=== PATIENT | male | born 1930 | race Caucasian/White ===

== ENCOUNTER 2017-01-01 07:30 | Inpatient (IN) ==
[2017-01-08] MEDS ORDERED: METOCLOPRAMIDE 10mg/2ml INJECTION IVP ONE (06:00)
[2017-01-08] MEDS ORDERED: NOZIN NASAL SWAB NAS ONE ×2 (06:00→15:11)
[2017-01-08] MEDS ORDERED: ACETAMINOPHEN 500 MG TABLET PO ONE (06:00)
[2017-01-08] MEDS ORDERED: LIDOCAINE 1% (10mg/ml) 2mL INJ PF SDV ID ONE (06:00)
[2017-01-08] MEDS ORDERED: ONDANSETRON 4 MG/2 ML INJECTION IVP ONE (06:00)
[2017-01-08] MEDS ORDERED: FAMOTIDINE PB 20 MG/50 ML BAG IV ONE (06:00)
[2017-01-08] MEDS ORDERED: CEFAZOLIN 1 G INJECTION IVP ONE (06:00)
[2017-01-08] MEDS ORDERED: DEXAMETHASONE 4 MG/ML INJECTION IVP ONE (06:00)
[2017-01-08] MEDS ORDERED: EPINEPHrine 0.25 MG, BUPIVACAINE 0.25% PF 30 ML, MORPHINE SULFATE 15 MG, KETOROLAC INJ ... OPSITE ONE (08:00)
--- OUTSIDE RECORDS SUMMARY | 2017-01-08 08:12 | External Medical Summary | Referral Summary ---
:1930 Author Care Team Providers Name Role Phone Adam Vegas Primary Care Physician Encounter [facility] [id number] Date(s): 08/23/14 - 08/23/14 [facility], Juan Manuel, Cardiology [address] [place], [place] [address] Discharge Diagnosis: Varicose veins Discharge Diagnosis: Knee osteoarthritis Discharge Diagnosis: Venous insufficiency Discharge Diagnosis: Hypertension, essential Discharge Disposition: Home or Self Care Attending Physician: Nando Dalal MD Admitting Physician: Nando Dalal MD Referring Physician: Adam Vegas MD Vital Signs Most recent to oldest [Reference Range]: 1 Peripheral Pulse Rate [60-100 bpm] 66 bpm (08/23/14 11:07 AM) Blood Pressure [90-140/60-90 mmHg] 138/82 mmHg (08/23/14 11:07 AM) Problem List Condition Effective Dates Status Health Status Informant Abnormal EKG(Confirmed) Active Hypertension, essential(Confirmed) Active Glaucoma(Confirmed) Active OA (osteoarthritis)(Confirmed) Active Venous insufficiency(Confirmed) Active Seizure disorder(Confirmed) Active Bilateral sensorineural hearing Active loss(Confirmed) Syncopal episodes(Confirmed) 10/2011 Active Chicken pox(Confirmed) Active Varicose veins(Confirmed) Active Allergies, Adverse Reactions, Alerts No Known Allergies Medications Aspirin Low Dose 81 mg, Oral, Daily, 0 Refill(s) Start Date: 10/14/13 Status: OrderedBetoptic S 0.25% ophthalmic suspension drops, Eye-Right, BID, 0 Refill(s) Start Date: 08/13/14 Status: OrderedFeosol 325 mg (65 mg elemental iron) oral tablet 1 tabs, Oral, TID, 0 Refill(s) Start Date: 06/29/14 Status: OrderedFish Oil 1000 mg oral capsule 1 caps, Oral, Daily, 0 Refill(s) Start Date: 06/29/14 Status: Orderedglucosamine 500 mg oral capsule 1 caps, Oral, Daily, 0 Refill(s) Start Date: 06/29/14 Status: Orderedlosartan 50 mg oral tablet 1 tabs, Oral, Daily, # 30 tabs, 6 Refill(s), Pharmacy: [facility] #[id number] , 1 tabs Oral Daily Start Date: 07/13/14 Status: Orderedsaw palmetto oral capsule 1 tabs, Oral, Daily, 0 Refill(s) Start Date: 06/29/14 Status: OrderedSystane ophthalmic solution drops, Eye-Left, BID, 0 Refill(s) Start Date: 08/13/14 Status: OrderedTimoptic Ocudose 0.25% ophthalmic solution 1 drops, Eye-Both, BID, 0 Refill(s) Start Date: 10/13/13 Status: OrderedTrusopt 2% ophthalmic solution 1 drops, Eye-Left, TID, 0 Refill(s) Start Date: 10/13/13 Status: OrderedVitamin D3 1000 intl units oral tablet 1 tabs, Oral, Daily, # 30 tabs, 0 Refill(s) Start Date: 06/29/14 Status: Ordered Results No data available for this section Immunizations Vaccine Date Refusal Reason pneumococcal 23-polyvalent vaccine 12/06/08 Procedures Procedure Date Related Diagnosis Body Site Biopsy - CSY random - neg repeat 10 yrs 2012 Sigmoidoscopy 02/19/02 Admission to hospital - [place] Hernia repair - R inguinal knee replacement Knee replacement - R Tonsillectomy Social History Social History Type Response Smoking Status Never smoker Assessment and Plan Extracted from: Title: Office Visit Note Author: Nando Dalal MD Date: 08/23/14 Assessment/Plan 1.Venous insufficiency 2.Varicose veins 3.Knee osteoarthritis Hypertension, essential With regard to his heart, he seems to be doing okay and we didn't make any changes in this regard. We continued to advised him to avoid nonsteroidal anti-inflammatory drugs. He still has lots of concerns regarding his legs. I advised him to continue to keep all options open. With regard to his heart, he is to see us again in 1 year but we can see him any time as necessary.
--- OUTSIDE RECORDS SUMMARY | 2017-01-08 08:12 | External Medical Summary | Referral Summary ---
:1930 Author Care Team Providers Name Role Phone Adam Vegas Primary Care Physician Encounter [facility] [id number] Date(s): 08/30/14 [facility] [address] [place] [address]- Discharge Diagnosis: Bilateral sensorineural hearing loss Discharge Disposition: Home or Self Care Attending Physician: Alison Jacobs Admitting Physician: Alison Jacobs Vital Signs No data available for this section Problem List Condition Effective Dates Status Health [...] Daily, # 30 tabs, 6 Refill(s), Pharmacy: [facility] #[id number] , 1 tabs Oral Daily Start Date: [...] Smoking Status Never smoker Assessment and Plan No data available for this section
--- OUTSIDE RECORDS SUMMARY | 2017-01-08 08:13 | External Medical Summary | Referral Summary ---
:1930 Author Organization [facility] Address [address] [place] [address] [place] [address] Care Team Providers Name Role Phone Adam Vegas Primary Care Physician Encounter [facility] Date(s): 08/26/15 - 08/26/15 [facility] [address] [place] [address] Discharge Diagnosis: Atrial flutter Discharge Diagnosis: Hypertension, essential Discharge Diagnosis: Orthostatic hypotension Discharge Diagnosis: Syncopal episodes Discharge Disposition: 01-Home or Self Care Attending Physician: Adam Vegas MD Admitting Physician: Adam Vegas MD Vital Signs Most recent to oldest [Reference Range]: 1 Temperature Tympanic [36.6-38.1 degC] 36.8 degC (08/26/15 9:44 AM) Peripheral Pulse Rate [60-100 bpm] 60 bpm (08/26/15 9:44 AM) Respiratory Rate [14-20 br/min] 16 br/min (08/26/15 9:44 AM) Blood Pressure [90-140/60-90 mmHg] 114/56 mmHg (08/26/15 9:44 AM) Problem List Condition Effective Dates Status Health Status Informant Abnormal EKG(Confirmed) Active Hypertension, essential(Confirmed) Active Glaucoma(Confirmed) Active OA (osteoarthritis)(Confirmed) Active Venous insufficiency(Confirmed) Active Seizure disorder(Confirmed) Active Bilateral sensorineural hearing Active loss(Confirmed) Syncopal episodes(Confirmed) 10/2011 Active Chicken pox(Confirmed) Active Varicose veins(Confirmed) Active Allergies, Adverse Reactions, Alerts No Known Allergies Medications acetaminophen 325 mg oral tablet 650 mg 2 tabs, Oral, q4hr, as needed for pain, 0 Refill(s) Start Date: 08/23/15 Status: Orderedamiodarone 200 mg oral tablet 200 mg 1 tabs, Oral, Daily, 0 Refill(s) Start Date: 08/23/15 Status: OrderedAspercreme 10% topical cream 1 veronica, Topical, QID, as needed for pain, # 120 g, 0 Refill(s) Start Date: 06/10/15 Status: Orderedaspirin 325 mg oral tablet 325 mg 1 tabs, Oral, Daily, # 90 tabs, 0 Refill(s) Start Date: 08/26/15 Status: OrderedBetoptic S 0.25% ophthalmic suspension drops, Eye-Right, BID, 0 Refill(s) Start Date: 08/13/14 Status: OrderedCalcium 600+D Oral, Daily, 0 Refill(s) Start Date: 08/26/15 Status: OrderedCo Q-10 200 mg, Oral, Daily, 0 Refill(s) Start Date: 08/23/15 Status: OrderedFish Oil 1000 mg oral capsule 1 caps, Oral, Daily, 0 Refill(s) Start Date: 06/29/14 Status: Orderedglucosamine 500 mg oral capsule 1 caps, Oral, Daily, 0 Refill(s) Start Date: 06/29/14 Status: Orderedmidodrine 2.5 mg oral tablet 2.5 mg 1 tabs, Oral, TID, 0 Refill(s) Start Date: 08/23/15 Status: OrderedMilk of Magnesia 8% oral suspension 2.4 g 30 mL, Oral, Bedtime (once a day), 0 Refill(s) Start Date: 08/23/15 Status: Orderedmultivitamin Daily, 0 Refill(s) Start Date: 08/23/15 Status: OrderedNorco 5 mg-325 mg oral tablet 1-2 tabs, Oral, q4hr, as needed for pain, [facility] [phone] not to exceed 8 tablets/day, # 120 tabs, 0 Refill(s) Start Date: 08/22/15 Stop Date: 08/21/16 Status: Orderedsaw palmetto oral capsule 1 tabs, Oral, Daily, 0 Refill(s) Start Date: 06/29/14 Status: OrderedSenna Plus 50 mg-8.6 mg oral tablet 1 tabs, Oral, BID, 0 Refill(s) Start Date: 08/23/15 Status: OrderedSystane ophthalmic solution drops, Eye-Left, BID, 0 Refill(s) Start Date: 08/13/14 Status: OrderedTrusopt 2% ophthalmic solution 1 drops, Eye-Left, BID, 0 Refill(s) Start Date: 10/13/13 Status: OrderedVitamin [...] Extracted from: Title: Office Visit Note Author: Adam Vegas MD Date: 08/26/15 Assessment/Plan Atrial flutter He appears to be in normal sinus rhythm today. We will continue him on amiodarone. I did change the dosage schedule since you're getting him up at 130 in the morning to give him a dose. Hopefully this willmake a little easier for him. Ordered: Office Visit Level 4 Est 59942 Hypertension, essential Blood pressureoverall is stable. He's been having some orthostatic hypotension and is on Midrin for that. We'll continue to monitor blood pressures carefully. Ordered: Office Visit Level 4 Est 51170 Orthostatic hypotension Continue midodrine.I encouraged fluid intake although he did have some hyponatremia felt to be secondary to overuse of water while in the hospital. Continue to monitor blood pressures. Ordered: Office Visit Level 4 Est 79282 Syncopal episodes He's had no further episodes since being at [facility] continue to monitor. Ordered: Office Visit Level 4 Est 59396
--- OUTSIDE RECORDS SUMMARY | 2017-01-08 08:13 | External Medical Summary | Referral Summary ---
:1930 Author Organization [facility], Zeus Perkins, Audiology Address [address] [place] [address] Care Team Providers Name Role Phone Adam Vegas Primary Care Physician Encounter [facility] [id number] Date(s): 03/07/15 - 03/07/15 [address] [facility] [address], Audiology [address] [place] [address]- Discharge Diagnosis: Sensorineural hearing loss, bilateral Discharge Disposition: 01-Home or Self Care Attending Physician: Alison Jacobs [...] 06/29/14 Status: Orderedlosartan 50 mg oral tablet See Instructions, TAKE ONE TABLET BY MOUTH DAILY, # 30 tabs, 1 Refill(s), eRx: [facility] #[id number], TAKE ONE TABLET BY MOUTH DAILY Start Date: 02/02/15 Status: Orderedpain cream pain cream, See Instructions, Ketoprofen 10%, Ibuprofen 10%, Cyclobenzaprine 2 % ,Piroxicam 2 %, Lidocaine 5% / Apply 1-2 grams to affected area 3-4 times per day, 5 Refill(s) Start Date: 09/01/14 Status: Orderedsaw palmetto oral capsule 1 tabs, [...]
--- OUTSIDE RECORDS SUMMARY | 2017-01-08 08:13 | External Medical Summary | Referral Summary ---
:1930 Author Organization [facility] [address] [place] [address] Care Team Providers Name Role Phone Adam Vegas Primary Care Physician Encounter [facility] Date(s): 06/10/15 - 06/10/15 [facility] [address] [place] [address]- Discharge Diagnosis: OA (osteoarthritis) Discharge Diagnosis: TIA (transient ischemic attack) Discharge Diagnosis: Left wrist pain Discharge Disposition: 01-Home or Self Care Attending Physician: Virginie Singleton APRN Admitting Physician: Virginie Singleton APRN Vital Signs Most recent to oldest [Reference Range]: 1 Temperature Tympanic [36.6-38.1 degC] 37.0 degC (06/10/15 10:33 AM) Peripheral Pulse Rate [60-100 bpm] 68 bpm (06/10/15 10:33 AM) Respiratory Rate [14-20 br/min] 20 br/min (06/10/15 10:33 AM) Blood Pressure [90-140/60-90 mmHg] 112/52 mmHg (06/10/15 10:33 AM) Problem List Condition Effective Dates Status Health Status Informant Abnormal EKG(Confirmed) Active Hypertension, essential(Confirmed) Active Glaucoma(Confirmed) Active OA (osteoarthritis)(Confirmed) Active Venous insufficiency(Confirmed) Active Seizure disorder(Confirmed) Active Bilateral sensorineural hearing Active loss(Confirmed) Syncopal episodes(Confirmed) 10/2011 Active Chicken pox(Confirmed) Active Varicose veins(Confirmed) Active Allergies, Adverse Reactions, Alerts No Known Allergies Medications Aspercreme 10% topical cream 1 veronica, Topical, QID, as needed for pain, # 120 g, 0 Refill(s) Start Date: 06/10/15 Status: OrderedAspirin Low Dose 4 tabs, Oral, Daily, 0 Refill(s) Start Date: 10/14/13 [...] TABLET BY MOUTH DAILY, # 30 tabs, 2 Refill(s), eRx: [facility] #[id number], TAKE ONE TABLET BY MOUTH DAILY Start Date: 03/29/15 Status: Orderedsaw palmetto oral capsule 1 tabs, Oral, Daily, 0 Refill(s) Start Date: 06/29/14 Status: OrderedSystane ophthalmic solution drops, Eye-Left, BID, 0 Refill(s) Start Date: 08/13/14 Status: OrderedTimoptic Ocudose 0.25% ophthalmic solution 1 drops, Eye-Both, BID, 0 Refill(s) Start Date: 10/13/13 Status: Orderedtriamcinolone 0.5% topical cream 1 veronica, Topical, BID, # 15 g, 0 Refill(s), Pharmacy: [facility] #[id number] Start Date: 04/29/15 Status: OrderedTrusopt 2% ophthalmic solution 1 drops, Eye-Left, TID, 0 Refill(s) Start Date: 10/13/13 Status: OrderedVitamin D3 1000 intl units oral tablet 1 tabs, Oral, Daily, # 30 tabs, 0 Refill(s) Start Date: 06/29/14 Status: Ordered Results Hematology Most recent to oldest [Reference Range]: 1 WBC [5.0-10.0 10*3/uL] 5.6 10*3/uL (06/10/15 11:27 AM) RBC [3.70-5.20] 3.79 (06/10/15 11:27 AM) Hgb [12.0-16.0 gm/dL] 13.0 gm/dL (06/10/15 11:27 AM) Hct [40.0-54.0 %] 38.7 % *LOW* (06/10/15 11:27 AM) MCV [80.0-96.0 fL] 102.1 fL *HI* (06/10/15 11:27 AM) MCH [26.0-34.0 pg] 34.3 pg *HI* (06/10/15 11:27 AM) MCHC [32.0-36.0 gm/dL] 33.6 gm/dL (06/10/15 11:27 AM) RDW [0.0-14.5 %] 12.8 % (06/10/15 11:27 AM) Platelet [150-400 10*3/uL] 199 10*3/uL (06/10/15 11:27 AM) MPV [8.8-14.8 fL] 11.2 fL (06/10/15 11:27 AM) Neutrophils [50-70 %] 68 % (06/10/15 11:27 AM) Lymphocytes [20-40 %] 16 % *LOW* (06/10/15 11:27 AM) Monocytes [4-8 %] 12 % *HI* (06/10/15 11:27 AM) Eosinophils [0-6 %] 3 % (06/10/15 11:27 AM) Basophils [0-2 %] 0 % (06/10/15 11:27 AM) Neutro Absolute [2.50-7.00 10*3] 3.79 10*3 (06/10/15 11:27 AM) Lymph Absolute [1.00-4.00 10*3] 0.91 10*3 *LOW* (06/10/15 11:27 AM) [place] Absolute [0.20-0.80 10*3] 0.68 10*3 (06/10/15 11:27 AM) Eos Absolute [0.00-0.60 10*3] 0.18 10*3 (06/10/15 11:27 AM) Baso Absolute [0.00-0.30] 0.01 (06/10/15 11:27 AM) Chemistry Most recent to oldest [Reference Range]: 1 Uric Acid [3.5-7.2 mg/dL] 4.7 mg/dL (06/10/15 11:27 AM) Immunizations Vaccine Date Refusal Reason pneumococcal 23-polyvalent vaccine 12/06/08 Procedures Procedure Date Related Diagnosis Body Site Biopsy - CSY random - neg repeat 10 yrs 2012 Sigmoidoscopy 02/19/02 Admission to hospital - [place] Hernia repair - R inguinal knee replacement Knee replacement - R Tonsillectomy Social History Social History Type Response Smoking Status Never smoker Assessment and Plan Extracted from: Title: Office Visit Note-TIA/wrist Author: Virginie Singleton [employer]NAL [employer] 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 Recommend he continue4 baby aspirins as he is taking. Discussed risks of recurrent TIA/strokes. Carotid Doppler to be scheduled. If he notes any increased weakness or other neurological symptoms he is to call the office or go to the ER. Ordered: US Carotid Duplex Bilateral 2.Left wrist pain Discussed multiple etiologies with the patient. X- ray today to rule out injury from recent fall. Less light likely to inclined to think this is cellulitis. Suspect gout. Lab today as ordered. Patient denies any need for pain medication for this. Ordered: CBC w/ Differential Uric Acid XR Wrist Complete Left OA (osteoarthritis)
--- OUTSIDE RECORDS SUMMARY | 2017-01-08 08:13 | External Medical Summary | Referral Summary ---
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 Discharge Disposition: 01-Home or Self Care Attending Physician: Adam Vegas MD Admitting Physician: Adam Vegas MD Vital Signs Most recent to oldest [Reference Range]: 1 Temperature Axillary [35.2-36.7 degC] 36.6 degC (12/19/14 10:13 AM) Peripheral Pulse Rate [60-100 bpm] 64 bpm (12/19/14 10:13 AM) Respiratory Rate [14-20 br/min] 16 br/min (12/19/14 10:13 AM) Blood Pressure [90-140/60-90 mmHg] 104/60 mmHg (12/19/14 10:13 AM) Problem List Condition Effective Dates Status [...] DAILY, # 30 tabs, 2 Refill(s), eRx: [facility] #[id number], TAKE ONE TABLET BY MOUTH DAILY Start [...] BID, # 15 g, 0 Refill(s), Pharmacy: [facility] #[id number] Start Date: 04/29/15 Status: OrderedTrusopt 2% ophthalmic solution 1 drops, Eye-Left, TID, 0 Refill(s) Start Date: 10/13/13 Status: OrderedVitamin D3 1000 intl units oral tablet 1 tabs, Oral, Daily, # 30 tabs, 0 Refill(s) Start Date: 06/29/14 Status: Ordered Results Chemistry Most recent to oldest [Reference Range]: 1 Sodium Lvl [135-144 mEq/L] 136 mEq/L (12/22/14 11:20 AM) Potassium Lvl [3.5-5.2 mEq/L] 4.9 mEq/L (12/22/14 AM) Chloride [99-111 mEq/L] 103 mEq/L (12/22/14 AM) CO2 [23-31 mEq/L] 26 mEq/L (12/22/14 AM) AGAP [3-20] 7 (12/22/14 AM) BUN [8-26 mg/dL] 19 mg/dL (12/22/14 AM) Glucose Lvl [70-99 mg/dL] 75 mg/dL (12/22/14 AM) Creatinine Lvl [0.72-1.25 mg/dL] 1.02 mg/dL (12/22/14 AM) eGFR [>60 mL/min] >60 mL/min 1 (12/22/14 AM) Calcium Lvl [8.9-10.5 mg/dL] 9.3 mg/dL (12/22/14 AM) Albumin Lvl [3.4-4.8 gm/dL] 3.9 gm/dL (12/22/14 AM) Total Protein [6.2-8.1 gm/dL] 6.4 gm/dL (12/22/14 AM) Globulin [1.8-4.0 gm/dL] 2.5 gm/dL (12/22/14 AM) ALT [0-55 U/L] 12 U/L (12/22/14 AM) AST [5-34 U/L] 25 U/L (12/22/14 AM) Alk Phos [40-150 U/L] 68 U/L (12/22/14: AM) Bili Total [0.2-1.2 mg/dL] 0.4 mg/dL (12/22/14 AM) TSH with Reflex Free T4 [0.35-4.94] 1.79 (12/22/14: AM) 1Result Comment: Multiply eGFR results by 1.21 for race. Immunizations Vaccine Date Refusal Reason pneumococcal 23-polyvalent [...] Visit Note Author: Adam Vegas MD Date: 12/22/14 Assessment/Plan BPH loc w/o ur obs/LUTS We talked about whether he would be appropriate to check PSAs with him now. It is age I've recommended that he not do that I explained the rationale for that. I offered t o go ahead and check if he decided he wanted to do that select. She has further questions or concerns he'll let know. Ordered: Office Visit Level 4 Est 48953 Cellulitis of elbow This appears to feel well and no signs of cellulitis currently. Follow-up if symptoms worsen. Ordered: Office Visit Level 4 Est 96118 Fatigue With his persistent fatigue I've recommended some laboratory studies will see what that shows Ordered: Comprehensive Metabolic Panel Office Visit Level 4 Est 02421 TSH with Reflex Free T4 OA (osteoarthritis) Chronic stable no change in current treatment is recommended. Ordered: Office Visit Level 4 Est 35927
--- OUTSIDE RECORDS SUMMARY | 2017-01-08 08:13 | External Medical Summary | Referral Summary ---
:1930 Author Organization [facility] [address] [place] [address] Care Team Providers Name Role Phone Adam Vegas Primary Care Physician Encounter [facility] Date(s): 04/09/16 - 04/09/16 [facility] [address] [place] [address]- Discharge Diagnosis: Paroxysmal atrial fibrillation Discharge Diagnosis: Syncopal episodes Discharge Diagnosis: Benign essential hypertension Discharge Disposition: 01-Home or Self Care Attending Physician: Adam Vegas MD Admitting Physician: Adam Vegas MD Vital Signs Most recent to oldest [Reference Range]: 1 Temperature Tympanic [36.6-38.1 degC] 36.6 degC (04/09/16 10:04 AM) Peripheral Pulse Rate [60-100 bpm] 60 bpm (04/09/16 10:04 AM) Respiratory Rate [14-20 br/min] 16 br/min (04/09/16 10:04 AM) Blood Pressure [90-140/60-90 mmHg] 140/78 mmHg (04/09/16 10:04 AM) Problem List Condition Effective Dates Status Health Status Informant Paroxysmal atrial Active fibrillation(Confirmed) Benign essential Active hypertension(Confirmed) Abnormal EKG(Confirmed) Active Hypertension, essential(Confirmed) Active Glaucoma(Confirmed) Active OA (osteoarthritis)(Confirmed) Active Venous insufficiency(Confirmed) Active Seizure disorder(Confirmed) Active Bilateral sensorineural hearing Active loss(Confirmed) Syncopal episodes(Confirmed) 10/2011 Active Chicken pox(Confirmed) Active Varicose veins(Confirmed) Active Allergies, Adverse Reactions, Alerts No Known Allergies Medications acetaminophen 325 mg oral tablet 650 mg 2 tabs, Oral, q4hr, as needed for pain, 0 Refill(s) Start Date: 08/23/15 Status: Orderedaspirin 325 mg oral tablet 325 [...] Daily, 0 Refill(s) Start Date: 06/29/14 Status: Orderedflecainide Oral, q12hr, 0 Refill(s) Start Date: 01/03/16 Status: OrderedFruit Fiber Fruit Fiber, Oral, Daily, 0 Refill(s) Start Date: 09/29/15 Status: Orderedglucosamine 500 mg oral capsule 1 caps, Oral, Daily, 0 Refill(s) Start Date: 06/29/14 Status: Orderedlosartan 25 mg oral tablet 25 mg 1 tabs, Oral, Daily, # 30 tabs, 0 Refill(s), other reason (Rx) Start Date: 04/09/16 Status: Orderedmultivitamin Daily, 0 Refill(s) Start Date: 08/23/15 Status: Orderedsaw palmetto oral capsule 1 tabs, [...] recent to oldest [Reference Range]: 1 WBC [4.8-10.8 10*3/uL] 5.8 10*3/uL (04/09/16 10:38 AM) RBC [4.60-6.20] 3.89 *LOW* (04/09/16 10:38 AM) Hgb [14.0-18.0 gm/dL] 13.5 gm/dL *LOW* (04/09/16 10:38 AM) Hct [42.0-52.0 %] 39.3 % *LOW* (04/09/16 10:38 AM) MCV [82.0-99.0 fL] 101.0 fL *HI* (04/09/16 10:38 AM) MCH [27.0-32.0 pg] 34.7 pg *HI* (04/09/16 10:38 AM) MCHC [32.0-36.0 gm/dL] 34.4 gm/dL (04/09/16 10:38 AM) RDW [11.5-14.5 %] 13.2 % (04/09/16 10:38 AM) Platelet [150-400 10*3/uL] 233 10*3/uL (04/09/16 10:38 AM) MPV [8.8-14.8 fL] 10.1 fL (04/09/16 10:38 AM) Immature Granulocytes [0.0-1.0 %] 0.3 % (04/09/16 10:38 AM) Neutrophils [51-75 %] 67 % (04/09/16 10:38 AM) Lymphocytes [20-46 %] 16 % *LOW* (04/09/16 10:38 AM) Monocytes [4-11 %] 14 % *HI* (04/09/16 10:38 AM) Eosinophils [0-4 %] 3 % (04/09/16 10:38 AM) Basophils [0-2 %] 0 % (04/09/16 10:38 AM) Neutro Absolute [1.90-7.00 10*3] 3.88 10*3 (04/09/16 10:38 AM) Lymph Absolute [0.80-3.30 10*3] 0.90 10*3 (04/09/16 10:38 AM) [place] Absolute [0.30-1.00 10*3] 0.83 10*3 (04/09/16 10:38 AM) Eos Absolute [0.00-0.50 10*3] 0.16 10*3 (04/09/16 10:38 AM) Baso Absolute [0.00-0.20 10*3] 0.01 10*3 (04/09/16 10:38 AM) Chemistry Most recent to oldest [Reference Range]: 1 Sodium Lvl [135-144 mEq/L] 138 mEq/L (04/09/16 10:38 AM) Potassium Lvl [3.5-5.2 mEq/L] 5.0 mEq/L (04/09/16 10:38 AM) Chloride [99-111 mEq/L] 102 mEq/L (04/09/16 10:38 AM) CO2 [23-31 mEq/L] 28 mEq/L (04/09/16 10:38 AM) AGAP [3-20] 8 (04/09/16 10:38 AM) BUN [8-26 mg/dL] 20 mg/dL (04/09/16 10:38 AM) Glucose Lvl [70-99 mg/dL] 61 mg/dL *LOW* (04/09/16 10:38 AM) Creatinine Lvl [0.72-1.25 mg/dL] 0.81 mg/dL (04/09/16 10:38 AM) eGFR [>60 mL/min] >60 mL/min 1 (04/09/16 10:38 AM) Calcium Lvl [8.9-10.5 mg/dL] 9.5 mg/dL (04/09/16 10:38 AM) Albumin Lvl [3.4-4.8 gm/dL] 4.1 gm/dL (04/09/16 10:38 AM) Total Protein [6.0-7.6 gm/dL] 6.4 gm/dL (04/09/16 10:38 AM) Globulin [1.8-4.0 gm/dL] 2.3 gm/dL (04/09/16 10:38 AM) ALT [0-55 U/L] 15 U/L (04/09/16 10:38 AM) AST [5-34 U/L] 25 U/L (04/09/16 10:38 AM) Alk Phos [40-150 U/L] 83 U/L (04/09/16 10:38 AM) Bili Total [0.2-1.2 mg/dL] 0.6 mg/dL (04/09/16 10:38 AM) 1Result Comment: Multiply eGFR results by 1.21 for race. Immunizations Vaccine Date Refusal Reason pneumococcal 23-polyvalent vaccine 12/06/08 Procedures Procedure Date Related Diagnosis Body Site Colonoscopy 05/26/12 Biopsy - CSY random - neg repeat 10 2012 Sigmoidoscopy 02/19/02 Admission to hospital - polio Hernia repair - R inguinal knee replacement Knee replacement - R Tonsillectomy Social History Social History Type Response Smoking Status Never smoker Assessment and Plan Extracted from: Title: Office Visit Note Author: Adam Vegas MD Date: 04/09/16 Assessment/Plan 1.Syncopal episodes He's having some ongoing recurring near syncopal spells. I've asked tohave him seen by Dr. De La O in the next few weeks if possible. We will do some lab work today. Enc ouraged him to continue his current medications. I've asked his to keep track of his blood pressure during these episodesandthe frequency of these episodes if they recur. Ordered: CBC w/ Differential Comprehensive Metabolic Panel Office Visit Level 4 Est 68610 2.Paroxysmal atrial fibrillation He appears to be in normal sinus rhythm today. Laboratory studies ordered Ordered: CBC w/ Differential Comprehensive Metabolic Panel Office Visit Level 4 Est 10214 3.Benign essential hypertension Blood pressure appears to be adequately controlledno change in current treatment at this time. Ordered: CBC w/ Differential Comprehensive Metabolic Panel Office Visit Level 4 Est 94312
--- OUTSIDE RECORDS SUMMARY | 2017-01-08 08:13 | External Medical Summary | Referral Summary ---
:1930 Author Care Team Providers Name Role Phone Adam Vegas Primary Care Physician Encounter [facility] [id number] Date(s): 09/01/14 - 09/01/14 [facility] , Podiatry [address], [place] [address] Discharge Diagnosis: Arthritis of foot Discharge Disposition: Home or Self Care Attending Physician: Maverick Langley DPM Admitting Physician: Maverick Langley DPM Vital Signs No data available for this [...] Daily, # 30 tabs, 6 Refill(s), Pharmacy: [facility] #[id number] , 1 tabs Oral Daily Start Date: 07/13/14 Status: Orderedpain cream pain cream, See Instructions, Ketoprofen 10%, Ibuprofen 10%, Cyclobenzaprine 2 % ,Piroxicam 2 %, Lidocaine 5% / Apply 1-2 grams to affected area 3-4 times per day, 5 Refill(s) Special Instructions: Ketoprofen 10%, Ibuprofen 10%, Cyclobenzaprine 2 %, Piroxicam 2 %, Lidocaine 5%/ Apply 1-2 grams to affected area 3-4 times per day Start Date: 09/01/14 Status: Orderedsaw palmetto oral [...] Extracted from: Title: Office Visit Note Author: Maverick Langley DPRuth Date: 09/01/14 Assessment/Plan Arthritis of foot X-ray of 3 view left foot showed moderate to severe arthritic changes involving tarsal metatarsal and midfoot joint. X-ray images were reviewed with the patient. Patient states that his health services manager advised him not to take any NSAIDs. Prescribe custom Rx medication today. Follow-up in 1 month if condition does not improve.
--- OUTSIDE RECORDS SUMMARY | 2017-01-08 08:13 | External Medical Summary | Referral Summary ---
:1930 Author Organization [facility] [address] [place] [address] Care Team Providers Name Role Phone Adam Vegas Primary Care Physician Encounter [facility] Date(s): 09/29/15 - 09/29/15 [facility] [address] [place] [address]- Discharge Diagnosis: Syncopal episodes Discharge Diagnosis: OA (osteoarthritis) Discharge Diagnosis: Atrial flutter Discharge Diagnosis: Venous insufficiency Discharge Disposition: 01-Home or Self Care Attending Physician: Adam Vegas MD Admitting Physician: Adam Vegas MD Vital Signs Most recent to oldest [Reference Range]: 1 Temperature Tympanic [36.6-38.1 degC] 36.2 degC *LOW* (09/29/15 2:35 PM) Peripheral Pulse Rate [60-100 bpm] 56 bpm *LOW* (09/29/15 2:35 PM) Respiratory Rate [14-20 br/min] 14 br/min (09/29/15 2:35 PM) Blood Pressure [90-140/60-90 mmHg] 92/52 mmHg (09/29/15 2:35 PM) Problem List Condition Effective Dates Status Health [...] Daily, 0 Refill(s) Start Date: 06/29/14 Status: OrderedFruit Fiber Fruit Fiber, Oral, Daily, 0 Refill(s) Start Date: 09/29/15 Status: Orderedglucosamine 500 mg oral capsule 1 caps, Oral, Daily, 0 Refill(s) Start Date: 06/29/14 Status: OrderedMilk of Magnesia 8% oral suspension 2.4 g 30 mL, Oral, Bedtime (once a day), 0 Refill(s) Start Date: 08/23/15 Status: OrderedMultaq 400 mg oral tablet 400 mg 1 tabs, Oral, BID, with morning and evening meals, # 180 tabs, 0 Refill(s ) Start Date: 09/29/15 Status: Orderedmultivitamin Daily, 0 Refill(s) Start Date: 08/23/15 Status: OrderedNorco 5 mg-325 mg oral tablet 1-2 tabs, Oral, q4hr, as needed for pain, [facility] [phone] not to exceed 8 tablets/day, # 120 [...] Visit Note Author: Adam Vegas MD Date: 09/29/15 Assessment/Plan 1.OA (osteoarthritis) Chronic relatively stable. He has noticed some increased pain in his left kneebecause of extra work it's having to do. No change in current treatment recommended. 2.Syncopal episodes No further syncopal or near syncopal episodes of been noted since being at the assisted. 3.Atrial flutter Recently switched from amiodarone to multi. He is tolerating that better. Concerns about costwill be ongoing. I encouraged both he and his to discuss this further with Dr. De La O at the next appointment next month. 4.Venous insufficiency He's noticed some increased edema recently. He does have compression stockings of been helpful for him in the past. I did write an order that he can use thoseat his discretion. I would like to see him back in one month follow-up.
--- OUTSIDE RECORDS SUMMARY | 2017-01-08 08:13 | External Medical Summary | Referral Summary ---
:1930 Author Organization [facility], [facility], Audiology Address [address] [place] [address] Care Team Providers Name Role Phone Adam Vegas Primary Care Physician Encounter [facility] Date(s): 03/07/15 - 03/07/15 [facility] [address] Audiology [address] [place] [address]- Discharge Diagnosis: Sensorineural hearing loss, bilateral Discharge [...] tabs, Oral, q4hr, as needed for pain, [facility] [phone] not to exceed 8 tablets/day, # 120 [...] # 30 tabs, 0 Refill(s) Start Date: 2/17/15 Status: Ordered Results No data available for [...]
--- OUTSIDE RECORDS SUMMARY | 2017-01-08 08:13 | External Medical Summary | Referral Summary ---
:1930 Author Organization [facility] [address] [place] [address] Care Team Providers Name Role Phone Adam Vegas Primary Care Physician Encounter [facility] Date(s): 04/29/15 - 04/29/15 [facility] [address] [place] [address] Discharge Diagnosis: Osteoarthritis of left knee Discharge Diagnosis: Seborrheic dermatitis Discharge Disposition: 01-Home or Self Care Attending Physician: Adam Vegas MD Admitting Physician: Adam Vegas MD Vital Signs Most recent to oldest [Reference Range]: 1 Temperature Tympanic [36.6-38.1 degC] 36.7 degC (04/29/15 10:31 AM) Peripheral Pulse Rate [60-100 bpm] 68 bpm (04/29/15 10:31 AM) Respiratory Rate [14-20 br/min] 18 br/min (04/29/15 10:31 AM) Blood Pressure [90-140/60-90 mmHg] 120/70 mmHg (04/29/15 10:31 AM) Problem List Condition Effective Dates Status [...] DAILY, # 30 tabs, 2 Refill(s), eRx: [facility] #[id number], TAKE ONE TABLET BY MOUTH DAILY Start Date: 03/29/15 Status: Orderedpain cream pain cream, See Instructions, [...] BID, # 15 g, 0 Refill(s), Pharmacy: [facility] #[id number] Start Date: 04/29/15 Status: OrderedTrusopt 2% ophthalmic [...] - neg repeat 10 yrs 2012 Sigmoidoscopy 10/10/02 Admission to hospital - polio Hernia repair - R inguinal knee replacement Knee replacement - R Tonsillectomy Social History Social History Type Response Smoking Status Never smoker Assessment and Plan Extracted from: Title: Office Visit Note Author: Adam Vegas MD Date: 04/29/15 Assessment/Plan Osteoarthritis of knee, unspecified, Osteoarthritis of left knee We talked about knee replacement surgery. He's done this once he knows when he is up against. I told him that my general recommendation is that when he is having enough pain or difficulties with the knee that is keeping him from doing the things he normally enjoys that's the time to consider knee replacement. He'll get some further thought this and if he has further questions or be glad to see him back. Ordered: Office Visit Level 3 Est 82566 Seborrheic dermatitis, Seborrheic dermatitis, unspecified I recommended some triamcinolone cream applied twice a day until clear. If it doesn't improve or further problems develop follow-up. Ordered: Office Visit Level 3 Est 62740 Orders: triamcinolone topical, 1 veronica, Topical, BID, # 15 g, 0 Refill(s), Pharmacy: [facility] #[id number]
--- OUTSIDE RECORDS SUMMARY | 2017-01-08 08:13 | External Medical Summary | Referral Summary ---
:1930 Author Organization [facility] [address] [place] [address] Care Team Providers Name Role Phone Adam Vegas Primary Care Physician Encounter [facility] Date(s): 01/03/16 - 01/03/16 [facility] [address] [place] [address] [place] Discharge Diagnosis: Hypertension, essential Discharge Diagnosis: OA (osteoarthritis) Discharge Diagnosis: Syncopal episodes Discharge Disposition: 01-Home or Self Care Attending Physician: Adam Vegas MD Admitting Physician: Adam Vegas MD Vital Signs Most recent to oldest [Reference Range]: 1 Temperature Tympanic [36.6-38.1 degC] 36.7 degC (01/03/16 11:00 AM) Peripheral Pulse Rate [60-100 bpm] 60 bpm (01/03/16 11:00 AM) Respiratory Rate [14-20 br/min] 14 br/min (01/03/16 11:00 AM) Blood Pressure [90-140/60-90 mmHg] 174/80 mmHg *HI* (01/03/16 11:00 AM) Problem List Condition Effective Dates Status [...] tabs, Oral, q4hr, as needed for pain, [facility] [phone] not to exceed 8 tablets/day, # 120 [...] tabs, 0 Refill(s) Start Date: 06/29/14 Status: OrderedZofran 4 mg oral tablet 4 mg 1 tabs, Oral, q6hr, Nausea or Vomiting | as needed for nausea/vomiting, # 10 tabs, 0 Refill(s) Start Date: 10/31/15 Status: Ordered Results No data available for [...] Visit Note Author: Adam Vegas MD Date: 01/03/16 Assessment/Plan 1.Hypertension, essential, Essential (primary) hypertension Blood pressure is high here today as well. I suggested restarting losartan 50 mg a day. They actually have an appointment to see Dr. De La O tomorrowand I suggested waiting getting his opinion about this as well. Recheck in 3 months and continue to monitor pressures at home as well. Ordered: Office Visit Level 3 Est 20882 2.OA (osteoarthritis), Unspecified osteoarthritis, unspecified site Chronic stable no change in current Ordered: Office Visit Level 3 Est 87553 3.Syncopal episodes, Syncope and collapse He's had no further syncopal episodes since being on the flecainide. Continue without change. Ordered: Office Visit Level 3 Est 97694"
--- OUTSIDE RECORDS SUMMARY | 2017-01-08 08:13 | External Medical Summary | Referral Summary ---
:1930 Author Organization [facility] [address] Audiology Address [address] [place] [address] Care Team Providers Name Role Phone Adam Vegas Primary Care Physician Encounter [facility] [id number] Date(s): 09/10/14 - 09/10/14 [facility] [address] Audiology [address] [place] [address]- Discharge Diagnosis: Bilateral sensorineural hearing loss Discharge Disposition: 01-Home or Self Care Attending [...] DAILY, # 30 tabs, 1 Refill(s), eRx: [facility] #[id number], TAKE ONE TABLET BY MOUTH DAILY Start [...]
--- OUTSIDE RECORDS SUMMARY | 2017-01-08 08:13 | External Medical Summary | Referral Summary ---
:1930 Author Organization [facility] [address] Audiology Address [address] [place] [address] Care Team Providers Name Role Phone Adam Vegas Primary Care Physician Encounter [facility] Date(s): 06/05/16 - 06/05/16 [facility] [address] Audiology [address] [place] [address]- Discharge Diagnosis: Bilateral sensorineural hearing loss Discharge Disposition: 01-Home or Self Care Attending Physician: Alison Jacobs Admitting Physician: Alison Jacobs Referring Physician: Foster Devine MD Vital Signs No data available for this [...] No data available for this section Immunizations Given and Recorded Vaccine Date Status Refusal Reason pneumococcal 23-polyvalent vaccine 12/06/08 Recorded Procedures Procedure Date Related Diagnosis Body Site Colonoscopy 05/26/12 Biopsy - CSY random - neg repeat 10 2012 Sigmoidoscopy 02/19/02 Admission to hospital - polio Hernia repair - R inguinal knee replacement Knee replacement - R Tonsillectomy Social History Social History Type Response Smoking Status Never smoker Assessment and Plan No data available for this section
--- OUTSIDE RECORDS SUMMARY | 2017-01-08 08:13 | External Medical Summary | Referral Summary ---
:1930 Author Organization [facility] [address] Audiology Address [address] [place] [address] Care Team Providers Name Role Phone Adam Vegas Primary Care Physician Encounter [facility] [id number] Date(s): 12/05/15 - 12/05/15 [facility] [address] Audiology [address] [place] [address] Discharge Disposition: 01-Home or Self Care Attending [...] tabs, Oral, q4hr, as needed for pain, [facility] [phone] not to exceed 8 tablets/day, # 120 [...] and Plan No data available for this section"
[2017-01-08 08:23] VITALS: BMI 25.2
[2017-01-08] MEDS: LR 1,000 ML IV SCH ×3 (09:01→13:00)
[2017-01-08] MEDS ORDERED: SALINE FLUSH 10ml SYRINGE IVF PRN (10:31)
[2017-01-08] MEDS ORDERED: TRANEXAMIC ACID 1gm/NS 100ml IRR MIX IR ONE (10:31)
[2017-01-08] MEDS ORDERED: VANCOMYCIN 1,000 MG INJECTION ONE (10:33)
--- NOTE | 2017-01-08 10:56 | Anesthesia Preoperative Report ---
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, RA primary osteoarthritis Proposed Procedure: left total knee arthroplasty NPO Since Date: 01/07/17 NPO Since Time: 23:00 Allergies/Adverse Reactions: Allergies Allergy/AdvReac Type Severity Reaction Status Date / Time No Known Drug Allergies Allergy Unknown Verified 01/08/17 08:29 - Vital Signs Vital Signs: Temperature 97.7 F 01/08/17 08:22 Pulse Rate 66 01/08/17 08:34 Respiratory Rate 18 01/08/17 08:22 Blood Pressure 178/81 H 01/08/17 08:22 Pulse Oximetry 98 01/08/17 08:22 Oxygen Delivery Method Room Air Height and Weight: Height 1.78 m Weight 79.7 kg Body Mass Index 25.2 - Medications Inpatient Medications: Current Medications Epinephrine HCl 0.25 mg/Bupivacaine HCl 30 ml/Morphine Sulfate 15 mg/Ketorolac Tromethamine 60 mg/Sodium Chloride 65.25 mls @ 1 mls/hr OPSITE INTRAOP ONE PRN Reason: Protocol Stop: 01/11/17 01:14 Lactated Ringer's (Lactated Ringers) 1,000 mls @ 50 mls/hr IV .Q20H ROSALINO Last Admin: 01/08/17 09:01 Dose: 50 mls/hr Sodium Chloride (Iv Flush) 10 - 80 ml IVF PRN PRN PRN Reason: Flushing Home Medications: Home Medications Medication Instructions Recorded Confirmed Type Saw Keystone Fruit [Saw Keystone] 1 cap PO DAILY #0 10/22/11 01/08/17 History Betaxolol 0.25% Eye Drops 1 drop RIGHT EYE BID #2 12/19/14 01/08/17 History [Betoptic] Dorzolamide Eye Drops [Trusopt] 1 drop RIGHT EYE BID #2 12/19/14 01/08/17 History Pike-3 Fatty Acids/Fish Oil 1 cap PO DAILY #0 12/19/14 01/08/17 History [Pike 3 Fish Oil Softgel] Propylene Glycol/Peg 400/Pf 1 drop LEFT EYE BID #0 ml 06/09/15 01/08/17 History [Systane 0.3-0.4% Eye Drops] Ubidecarenone [Co Q-10] 200 mg PO DAILY #0 cap 06/09/15 01/08/17 History Losartan Potassium 25 mg PO BID #0 04/23/16 01/08/17 History Rivaroxaban [Xarelto] 20 mg PO WB 01/03/17 01/08/17 History - Medical History Cardiovascular: Reports: Hypertension Neuro/Musculoskeletal: Reports: Other (polio ) - Surgical History HEENT Surgeries: Reports: Tonsillectomy GI Surgery/Treatments: Reports: Hernia Repair, Colonoscopy Musculoskeletal Surgery/Tx: Reports: Orthopedic Surgery (ORIF Rt fibula), Shoulder Arthroscopy, Total Knee Replacement (Rt TKA) Anesthesia Reactions: None Hx Family Anesthesia Reaction: No History of Motion Sickness: No - Social History Smoking Status: Never smoker - Pertinent Findings Laboratory: CBC and BMP 01/08/17 08:36 01/08/17 08:36 BMP 01/08/17 08:36 Sodium 143 Potassium 4.4 Chloride 104 Carbon Dioxide 28 BUN 24.0 H Creatinine 0.8 Glucose 88 Calcium 9.6 EKG Rhythm: Normal Sinus Rhythm - Physical Exam Respiratory Exam: Present: lungs clear, bilateral breath sounds equal Cardiovascular Exam: Present: regular rate and rhythm - Airway Assessment Mallampati Score: III TMD: 3 Fingerbreadths Neck Extension: poor Teeth: poor dentation (multiple broke ) Overall Assessment: may be difficult intubation - ASA ASA Score: 3 - Plan Anesthesia: General TIVA, General Inhalation Gases Peripheral Nerve Block: Saphenous-Left - Discussion Discussion: Discussed risks/options/alternatives of anesthesia and questions answered. Patient consents. Nursing pain assessment noted. Attestation Statement: Prior to the delivery of any anesthetic medication, I examined the patient, developed the plan, obtained the patient's consent and discussed the risk and benefits of the procedure with the patient/guardian.
[2017-01-08] MEDS ORDERED: MIDAZOLAM 2mg/2ml INJECTION IVP ONE (11:09)
[2017-01-08] MEDS ORDERED: DiphenhydrAMINE 50 MG/ML INJECTION IVP PRN ×2 (11:09→15:11)
[2017-01-08] MEDS ORDERED: NALOXONE 0.4 MG/ML INJECTION IVP PRN (11:09)
[2017-01-08] MEDS ORDERED: ONDANSETRON 4 MG/2 ML INJECTION IVP PRN ×2 (11:09→15:11)
[2017-01-08] MEDS ORDERED: ANESTHESIA MIXTURE 50 ML IV ONE (11:15)
[2017-01-08] MEDS ORDERED: PROPOFOL 20 ML ONE (11:22)
[2017-01-08] MEDS ORDERED: ROPIVACAINE 0.5% (5mg/ml) 30ml INJ ONE (11:22)
[2017-01-08] MEDS ORDERED: FentaNYL 100 MCG/2 ML INJECTION ONE ×3 (11:22→13:01)
[2017-01-08] MEDS ORDERED: VANCOMYCIN 1,000 MG INJECTION IAR ONE (11:30)
--- NOTE | 2017-01-08 11:44 | Anesthesia Procedure Note ---
Peripheral Nerve Blockade - Procedure Physician: Shayne Muniz MD Date: 01/08/17 Surgical Procedure: left knee arthroplasty Discussion: Discussed risks/options/alternatives of anesthesia and questions answered. Patient consents. Nursing pain assessment noted. Block Start: 11:04 Block Stop: 11:06 Blocked Employed: Adductor Canal Indication: Post-Operative Pain Approach: Left Side Confirmed Position: Supine Patient: Consent, Risks/Benefits Discussed, Informed, Post Block Act. Discussed IV Sedation: Yes Sedation: Sedate w/Meaningful Contact Midazolam (mg): 2 Initial Vital Signs: Temperature 97.7 F 01/08/17 08:22 Temperature Source Oral 01/08/17 08:22 Pulse Rate 59 L 01/08/17 08:22 Respiratory Rate 18 01/08/17 08:22 Blood Pressure 178/81 H 01/08/17 08:22 Blood Pressure Mean 113 01/08/17 08:22 Blood Pressure Position Sitting 01/08/17 08:22 Pulse Oximetry 98 01/08/17 08:22 Oxygen Delivery Method 01/08/17 08:22 Post Vital Signs: Temperature 97.7 F 01/08/17 08:22 Pulse Rate 70 01/08/17 11:05 Respiratory Rate 12 01/08/17 11:05 Blood Pressure 156/81 H 01/08/17 11:05 Pulse Oximetry 92 01/08/17 11:05 Oxygen Delivery Method Room Air Initial Pain Pain Score: 3 Post Block Pain Score: 3 Prep: Chlorhexadine/ETOH Ultrasound Used?: Yes - Injectate Ropivacaine (%): 0.5 Ropivacaine (mL): 20 Was Epi 1:200,000 Used?: No Injection: Injection made incrementally with constant monitoring and aspiration every ml
[2017-01-08] MEDS ORDERED: HYDROMORPHONE 2 MG/ML INJECTION IVP PRN (12:52)
[2017-01-08] MEDS ORDERED: ONDANSETRON 4 MG/2 ML INJECTION ONE (12:56)
--- NOTE | 2017-01-08 13:28 | Operative Note ---
- Procedure Side: left Preoperative Diagnosis: knee primary DJD Postoperative Diagnosis: Same as preoperative diagnosis. Operation: total knee arthroplasty Surgeon: Tara Muniz MD Hebrew Professor: Rajat Guerrero Complications: None. Regional/Trunk Block: Spinal Peripheral Nerve Block: Saphenous-Left Estimated Blood Loss: See Anesthesia Record. Fluids: Please see Anesthesia Record. Description of Procedure: Mr. Mejias and his left knee were identified and marked in the preoperative holding area was brought back to the operating suite and spinal anesthetic was administered. He was placed supine on the operating table and his left lower joint was prepped and draped in my normal sterile fashion. Timeout was performed. Mr. Mejias had a fixed varus deformity. A standard anterior midline incision followed by medial parapatellar arthrotomy was performed. Then placed the tibial array in the mid tibia using bicortical pins. A femoral array was placed in the medial metaphysis. Anterior fat pad and meniscus were removed. The bone was administered with the [employer] robot. We then captured images at 90 and 0 with correction. The knee was then balanced using the CT scan and [employer] software. The tibia was placed and 1 of varus. And we externally rotated the femoral component. I then removed all remaining osteophytes and the [employer] robot was used to perform bone cuts. Bone cuts were removed as was remaining meniscus. Joint cocktail was injected throughout the soft tissue. Trial components were placed. I did release the PCL partially and with this we placed a 13 mm spacer after a slightly larger medial release he was well balanced and the patella tracked well. The patella was then resurfaced to a 32. This point the leg was exsanguinated and tourniquet inflated to 250 mmHg. The bone wasn't prepared for cementing and components were cemented into place. They were allowed to cure in extension. The tourniquet was then let down and hemostasis obtained with electrocautery.1 g of TXA was allowed to sit in the wound for 5 minutes and then suctioned out. 1 g of vancomycin was placed into the knee before the capsulotomy was repaired with #1 Vicryl. I discussed my nutritional assistant to finish closure with 2-0 Vicryl subcutaneous tissue and 4-0 Monocryl and the skin. Dermabond was then used followed by sterile dressing and the patient was taken to the recovery room under the care of anesthesia.
--- NOTE | 2017-01-08 13:47 | History & Physical Update ---
- History and Physical Update Date: 01/08/17 Update: I evaluated this patient and found no changes in the history and clinical exam findings. The treatment plan and recommendations are also unchanged from the previous documentation.
--- NOTE | 2017-01-08 14:09 | Anesthesia Postoperative Note ---
- Date and Time Date: 01/08/17 Time: 14:10 - Status Patient Participated in Evaluation: Patient Participated in Person Vital Signs: Temperature 97.7 F 01/08/17 08:22 Pulse Rate 70 01/08/17 11:05 Respiratory Rate 12 01/08/17 11:05 Blood Pressure 156/81 H 01/08/17 11:05 Pulse Oximetry 92 01/08/17 11:05 Respiratory Function: Airway Patent Cardiovascular Function: Regular Pulse EKG Rhythm: Normal Sinus Rhythm Mental Status: Alert and Oriented Pain Intensity: 0 Hydration: IV Infusing Complications During Recover: None Apparent - Follow-Up Instructions Instructions: Per Surgeon
[2017-01-08] MEDS ORDERED: DiphenhydrAMINE 25 MG CAPSULE PO PRN (15:11)
[2017-01-08] MEDS ORDERED: LORazepam 1 MG TABLET PO PRN (15:11)
[2017-01-08] MEDS ORDERED: TRAMADOL 50 MG TABLET PO PRN (15:11)
[2017-01-08] MEDS: NS 1,000 ML IV SCH (15:23)
[2017-01-08] MEDS: NOZIN NASAL SWAB NAS SCH ×2 (15:23→21:45)
--- NOTE | 2017-01-08 15:30 | XRay Report ---
Indication: postoperative image PROCEDURE: XR knee LT 2V: Encounter: Initial Comparison: October 31, 2016 Findings: Postoperative changes of left total knee replacement are seen. There is expected postoperative subcutaneous gas. No evidence of hardware failure or acute fracture. No retained radiopaque surgical instruments or sponges. Overlying material causing artifact. Impression: New left total knee prosthesis without evidence of immediate complication. .
[2017-01-08] MEDS ORDERED: FALL RISK - PHARMACY CONSULT XX ONE (15:31)
[2017-01-08] MEDS ORDERED: TRANEXAMIC ACID 1,000mg in NS 100ml IV ONE (16:12)
[2017-01-08] MEDS: ACETAMINOPHEN 325 MG TABLET PO SCH ×2 (17:52→21:32)
[2017-01-08] MEDS: CEFAZOLIN 2 G in NS 100 ML IV SCH (18:14)
[2017-01-08] MEDS ORDERED: LOSARTAN 50 MG TABLET PO SCH (21:00)
[2017-01-08] MEDS ORDERED: FLECAINIDE 50 MG TABLET PO SCH (21:00)
[2017-01-08] MEDS ORDERED: SENNOSIDES 8.6 MG TABLET PO SCH (21:00)
[2017-01-08] MEDS: EYE RIGHT EYE SCH (21:30)
[2017-01-08] MEDS: BETAXOLOL 0.25% RIGHT EYE SCH (21:30)
[2017-01-08] MEDS: SYSTANE EYE DROPS 0.7ml LEFT EYE SCH (21:30)
[2017-01-08] MEDS: DORZOLAMIDE 2% EYE DROPS 10ml RIGHT EYE SCH (21:33)
[2017-01-08] MEDS: DOCUSATE SODIUM 100 MG CAPSULE PO SCH (21:33)
[2017-01-09] MEDS: CEFAZOLIN 2 G in NS 100 ML IV SCH (02:49)
[2017-01-09] MEDS: NS 1,000 ML IV SCH (04:51)
[2017-01-09] MEDS: NOZIN NASAL SWAB NAS SCH ×2 (05:34→15:00)
[2017-01-09 07:57] VITALS: O2SAT 96
--- NOTE | 2017-01-09 08:01 | Orthopedic Progress Note ---
Date: Subjective/Severity of Illness: Toi is doing great. Pain is controlled. He has been up with good tolerance. Denies CP, cough or SOA. He is still on 1L of oxygen but reports he feels fine. No GI distress. Appetite is okay. He is wondering about going home today. Orthopedic Objective PO Vital signs: Temperature 97.5 F 01/09/17 03:38 Pulse Rate 92 01/09/17 03:38 Respiratory Rate 16 01/09/17 03:38 Blood Pressure 107/65 01/09/17 03:38 Pulse Oximetry 94 01/09/17 03:38 Height and Weight: Height 5 ft 10 in Weight 175 lb 11.335 oz Body Mass Index 25.2 - Constitutional General Appearance: Present: alert, no acute distress - Respiratory Exam Present: non-labored - Cardiovascular Exam Present: pedal pulses intact Capillary Refill: < 2-3 Seconds - Extremities Exam Extremities: Absent: calf tenderness - Surgical Site Incision: Mepilex dressing intact, no drainage - Integumentary Exam Present: pink, warm, dry - Neurological Exam Present: no deficits - Psychiatric Exam Present: alert, normal affect - Labs Result Diagrams: 01/09/17 04:17 01/09/17 04:17 Abnormal lab results 01/08/17 01/08/17 01/09/17 Range/Units 08:36 08:36 04:17 WBC 4.3 L 11.6 H D (4.5-11.0) T/MM3 RBC 3.95 L 3.25 L (4.50-5.90) M/MM3 Hgb 10.8 L D (13.5-17.5) GM/DL Hct 39.4 L 32.4 L D (41-53) % MCH 34.2 H (26-34) UUG Lymph % (Auto) 21.8 L (23-45) % Hendry % (Auto) 10.8 H (0-9.0) % Lymph # 0.9 L (1-4.8) T/MM3 BUN 24.0 H (9-20) MG/DL BUN/Creatinine Ratio 30 H (6-26) RATIO Glucose (75-110) MG/DL 01/09/17 Range/Units 04:17 WBC (4.5-11.0) T/MM3 RBC (4.50-5.90) M/MM3 Hgb (13.5-17.5) GM/DL Hct (41-53) % MCH (26-34) UUG Lymph % (Auto) (23-45) % Hendry % (Auto) (0-9.0) % Lymph # (1-4.8) T/MM3 BUN 27.0 H (9-20) MG/DL BUN/Creatinine Ratio 27 H (6-26) RATIO Glucose 132 H (75-110) MG/DL H & H 01/08/17 01/09/17 Range/Units 08:36 04:17 Hgb 13.5 10.8 L D (13.5-17.5) GM/DL Hct 39.4 L 32.4 L D (41-53) % Orthopedic Assessment and Plan (1) Primary osteoarthritis of left knee Status: Acute Assessment and Plan: Continue home anti-coagulation (Xarelto) for VTE prophylaxis and coverage for A Fib. Resume all anti-arrhythmia and HTN Meds. SCD's. PT/OT services to improve independent function. Discharge Planning per Case Management. - Anticoagulation Therapy Anticoagulation: Resume home anticoagulant (Xarelto for A Fib coverage. ) Hospital Course Summary Disclaimer: The visit summary below is not to be considered part of the above Progress Note.
[2017-01-09] MEDS: SYSTANE EYE DROPS 0.7ml LEFT EYE SCH (08:37)
[2017-01-09] MEDS: DORZOLAMIDE 2% EYE DROPS 10ml RIGHT EYE SCH (08:38)
[2017-01-09] MEDS: ACETAMINOPHEN 325 MG TABLET PO SCH ×2 (08:38→12:15)
[2017-01-09] MEDS: EYE RIGHT EYE SCH (08:38)
[2017-01-09] MEDS: DOCUSATE SODIUM 100 MG CAPSULE PO SCH (08:38)
[2017-01-09] MEDS: BETAXOLOL 0.25% RIGHT EYE SCH (08:38)
[2017-01-09] MEDS ORDERED: OMEGA-3 ACID ESTERS 1 GM CAPSULE PO SCH (09:00)
[2017-01-09] MEDS ORDERED: FLECAINIDE 50 MG TABLET PO SCH (09:00)
[2017-01-09] MEDS ORDERED: LOSARTAN 50 MG TABLET PO SCH (09:00)
[2017-01-09] MEDS ORDERED: POLYETHYL GLYCOL 3350 17gm PACKET PO SCH (09:00)
[2017-01-09 12:10] VITALS: BP 120/68; PULSE 83; RESP 18; TEMP 96.5
[2017-01-09] MEDS ORDERED: SENNOSIDES 8.6 MG TABLET PO PRN (13:49)
--- NOTE | 2017-01-09 14:07 | Discharge Summary ---
Orthopedic Discharge Info Date of admission: 01/08/17 08:06 Primary care physician: Adam Vegas MD Attending Physician: Shayne Muniz MD Consults: 01/08/17 08:17 Consult to Anesthesiology [CONS] Routine Consulting Provider: WESLEY Ferrara Reason For Exam: Preoperative Assessment 01/08/17 15:11 Case Management Consult [CONS] Routine Reason For Exam: Discharge Planning DME-Walker [CONS] Routine Height: 5 ft 10 in Weight: 175 lb 11.335 oz Comment: change dressing in 2 weeks Total Joint Outpatient Therapy [CONS] Routine Comment: change dressing in 2 weeks - Discharge Diagnosis (1) Primary osteoarthritis of left knee Status: Acute - Procedures Procedures: Procedure Right TKA - Laboratory Result Diagrams: 01/09/17 04:17 01/09/17 04:17 Laboratory: Abnormal lab results 01/09/17 01/09/17 Range/Units 04:17 04:17 WBC 11.6 H D (4.5-11.0) T/MM3 RBC 3.25 L (4.50-5.90) M/MM3 Hgb 10.8 L D (13.5-17.5) GM/DL Hct 32.4 L D (41-53) % BUN 27.0 H (9-20) MG/DL BUN/Creatinine Ratio 27 H (6-26) RATIO Glucose 132 H (75-110) MG/DL H & H 01/08/17 01/09/17 Range/Units 08:36 04:17 Hgb 13.5 10.8 L D (13.5-17.5) GM/DL Hct 39.4 L 32.4 L D (41-53) % Orthopedic Discharge HPI - HPI Comments This patient was admitted for elective surgical tx of end stage degenerative joint disease that failed to respond to conservative treatment. Further details of this is found in the admission H&P. Orthopedic Hospital Course Hospital course: 01/09/17 14:07 After appropriate preoperative clearance and signing of operative consent, the patient was given IV antibiotics, according to orthopedic protocol. The patient was taken to the operating room and underwent elective joint arthroplasty. Following surgery, antibiotics were discontinued less than 24 hours according to joint protocol. Appropriate anticoagulants were initiated and SCDs added for DVT prevention. The dressing was clean, dry, and intact. Pain control was obtained via multimodal approach. Bowel motivation addressed with scheduled and PRN medications. Early mobilization was initiated through PT services. Discharge arrangements made by a collaborative effort between the patient and Case Management. Follow-up is scheduled in 2-3 weeks. Discharge instructions given by orthopedic providers and nursing staff at discharge. Discharge condition was good. Ongoing care required?: No - Postoperative Anemia patient received IVF, labs monitored daily, no intervention required Discharge Plan - Med Rec/Dispo Referrals/Follow Up: Shayne Muniz MD [Physician] - 01/30/17 10:30 am Prescriptions: New Acetaminophen [Tylenol] 650 mg PO QID #100 tab Tramadol [Ultram] 50 - 100 mg PO Q6H PRN #60 tab PRN Reason: Pain Continue Saw Iva Fruit [Saw Iva] 1 cap PO DAILY #0 Dorzolamide Eye Drops [Trusopt] 1 drop RIGHT EYE BID #2 Betaxolol 0.25% Eye Drops [Betoptic] 1 drop RIGHT EYE BID #2 [place]-3 Fatty Acids/Fish Oil [[place] 3 Fish Oil Softgel] 1 cap PO DAILY #0 Ubidecarenone [Co Q-10] 200 mg PO DAILY #0 cap Rivaroxaban [Xarelto] 20 mg PO WB Propylene Glycol/Peg 400/Pf [Systane 0.3-0.4% Eye Drops] 1 drop LEFT EYE BID #0 ml Flecainide Acetate 50 mg PO Q12HR 30 Days #60 tab Losartan Potassium 25 mg PO BID #0 - Disposition 03 To [facility] Not [facility] ([facility])
--- NOTE | 2017-01-09 14:07 | Extended Care Facility Orders ---
Admission Orders Admit to:: [facility] Allergies/Adverse Reactions: Allergies No Known Drug Allergies Allergy (Unknown, Verified 01/08/17 08:29) Admitting Diagnosis: M17.12 Lt TKA, RA Admitting Physician: Shayne Muniz MD Attending Physician: Shayne Muniz MD Anticiapted Length of Stay: 30 days or less Rehab Potential: good Rehab Prognosis: good Diet: 01/08/17 Lunch Regular Diet [DIET] Diet Modifications: May use Facility Protocol or Standing Orders: Yes May have flu vaccine: Yes Evaluations/Treatment: PT, OT [facility] Certification: I certify that SNF services are required to be given on an Inpatient basis because of the patients need for assisted care on a continuing basis for the condition(s) for which he/she received inpatient hospital services prior to his/her transfer to the SNF. SNF inpatient care is necessary for the following reasons Indication for [facility]: Postop Assessment Care - Additional Information In Event of Arrest: Start CPR,call 911,send patient to the ER Referrals: Shayne Muniz MD [Physician] - 01/30/17 10:30 am
[2017-01-09] MEDS ORDERED: RIVAROXABAN 20 MG TABLET PO SCH (17:30)
[2017-01-10] MEDS ORDERED: BISACODYL 10 MG SUPPOSITORY RECTALLY SCH (20:00)
== END 2017-01-09 15:50 | DRG 470 ==
LOC: SRG 01-08 08:06
PROVIDERS: ADMIT Orthopaedic Surgery; ATTEND Orthopaedic Surgery

== ENCOUNTER 2017-05-13 14:23 | Observation (INO) ==
--- NOTE | 2017-05-13 14:39 | Emergency Department Report ---
Fever HPI - General Chief Complaint: Weakness Stated Complaint: fever, weakness, diarrhea Time Seen by Provider: 05/13/17 14:38 - Related Data Home Medications Medication Instructions Recorded Confirmed Rivaroxaban [Xarelto] 20 mg PO WB 01/03/17 01/08/17 coenzyme Q10 200 mg capsule 200 mg PO DAILY cap 02/21/17 Calcium 600 w/Vitamin D3 (calcium 2 cap PO DAILY cap 04/19/17 carbonate-vitamin D3 600 mg (1,500 mg)-400 unit) capsule Cozaar (losartan) 25 mg tablet 25 mg PO DAILY #0 tab 04/19/17 arginine (L-arginine) 500 mg 500 mg PO DAILY cap 04/19/17 capsule betaxolol 0.25 % eye 1 drop RIGHT EYE BID 04/19/17 drops,suspension carboxymethylcellulose sodium 0.5 1 drop LEFT EYE BID ml 04/19/17 % eye drops dorzolamide 2 % eye drops 1 drop RIGHT EYE BID ml 04/19/17 ferrous gluconate 256 mg (28 mg 256 mg PO DAILY tab 04/19/17 iron) tablet multivitamin tablet 1 tab PO DAILY 04/19/17 omega-3 950 mg-dha 320 mg-epa 630 1 cap PO DAILY cap 04/19/17 mg-fish oil 1,360 mg capsule saw palmetto 160 mg capsule 160 mg PO DAILY cap 04/19/17 Previous Rx's Medication Instructions Recorded Flecainide Acetate 50 mg PO Q12HR 30 Days #60 tab 12/01/15 Allergies Allergy/AdvReac Type Severity Reaction Status Date / Time No Known Drug Allergies Allergy Unknown Verified 04/22/17 10:10 [facility] Patient Stated Medical History Other Musculoskeletal Yes: polio [facility] Medical History (Last Reviewed 02/20/17 @ 12:24 by WESLEY [place]) Polio (Acute Medical) TIA (transient ischemic attack) (Acute Medical) Stroke (Acute Medical) Surgical History: Rt TKA,. Rt ankle. 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 Mother Stroke - Social History Smoking status: Never smoker Course Vital Signs Temperature 101.0 F H 05/13/17 14:34 Pulse Rate 97 05/13/17 14:34 Respiratory Rate 22 05/13/17 14:34 Blood Pressure 178/97 H 05/13/17 14:34 Pulse Oximetry 98 05/13/17 14:34 Temperature 101.0 F H 05/13/17 14:34 Pulse Rate 97 05/13/17 14:34 Respiratory Rate 22 05/13/17 14:34 Blood Pressure 178/97 H 05/13/17 14:34 Pulse Oximetry 98 05/13/17 14:34 Disposition Prescriptions: No Action Rivaroxaban [Xarelto] 20 mg PO WB Flecainide Acetate 50 mg PO Q12HR 30 Days #60 tab coenzyme Q10 200 mg capsule 200 mg PO DAILY cap Calcium 600 w/Vitamin D3 (calcium carbonate-vitamin D3 600 mg (1,500 mg)-400 unit) capsule 2 cap PO DAILY cap omega-3 950 mg-dha 320 mg-epa 630 mg-fish oil 1,360 mg capsule 1 cap PO DAILY cap saw palmetto 160 mg capsule 160 mg PO DAILY cap arginine (L-arginine) 500 mg capsule 500 mg PO DAILY cap ferrous gluconate 256 mg (28 mg iron) tablet 256 mg PO DAILY tab betaxolol 0.25 % eye drops,suspension 1 drop RIGHT EYE BID dorzolamide 2 % eye drops 1 drop RIGHT EYE BID ml carboxymethylcellulose sodium 0.5 % eye drops 1 drop LEFT EYE BID ml Cozaar (losartan) 25 mg tablet 25 mg PO DAILY #0 tab multivitamin tablet 1 tab PO DAILY Referrals: Adam Vegas MD [Primary Care Provider] -
[2017-05-13] MEDS ORDERED: NS 1,000 ML IV ONE (14:43)
[2017-05-13] MEDS ORDERED: CEFEPIME 1 GM in NS 100 ML IV ONE (14:45)
[2017-05-13] MEDS: SALINE FLUSH 10ml SYRINGE IVF PRN ×2 (15:09→20:20)
--- NOTE | 2017-05-13 17:10 | XRay Report ---
Indication: fever, weakness question pneumonia PROCEDURE: XR chest 1V: Encounter: Initial Comparison: August 12, 2015 Findings: The lungs are stable in appearance without new focal airspace consolidation. There is no pleural effusion or pneumothorax. The heart size, pulmonary vascularity and mediastinal contours are unchanged. Implanted cardiac monitoring device is new. Old left rib deformities. Severe degenerative change in the left shoulder. Hiatal hernia. IMPRESSION: Stable appearance of the chest without acute cardiopulmonary disease. .
--- NOTE | 2017-05-13 18:33 | History & Physical Report ---
History of Present Illness Date: 05/13/17 Chief complaint: "so tired" HPI: Toi Mejias is an 87-year-old male who lives at home with his . Much of the history is obtained from his , as Toi was sleeping for part of the interview. She states that he was up several times with diarrhea the previous night. Once he woke up, he was able to confirm this and also affirmed that there is no blood in it, however, he could not quantify the number of times he actually had diarrhea. This morning, after he brought wood up for the wood- burning stove, he reached the top of the steps and complained of extreme fatigue. He became weak and he fell forward towards the ground. He did not strike his head or lose consciousness. He has a contusion to his right elbow, and thinks possibly he injured his elbow during the fall. His was unable to get him up from the floor and called one of their sons to help him into the recliner. Soon he had to use the bathroom, and Mrs. Mejias carefully assisted him to the bathroom, but she states that "it was a struggle". From there, he requested to go to bed, but she took him to the kitchen and she made him some chicken noodle soup. He ate half a can, and thought he would vomit. He complained of a stomachache. When he stood up again, she was afraid he would pass out. He has a history of syncope, and she can tell when it will occur because he begins to on and becomes diaphoretic. Luckily, he did not have a syncopal event. His checked his temperature and noted it to be 101 axillary. They called a family member who is a physical therapist, and she recommended evaluation in the emergency department. He has not had any respiratory symptoms, new cough (he has a chronic cough which his attributes to his blood pressure medication), or sinus congestion. His states that he does occasionally have a little trouble choking when he eats. He denies a headache but admits to feeling a little dizzy. He denies chest pain or palpitations. His legs have a tendency for swelling and he wears MARZENA hose. His denies confusion, but states that his responses have been slow. On arrival to the emergency department, he was febrile at 101. He was slightly tachypneic. Blood pressure was elevated at 178/97. He was maintaining adequate saturations on room air. Labs showed mild leukocytosis with a white count of 11.4, mild normocytic anemia with a hemoglobin of 13.4. There were 95% neutrophils. Chemistries were largely unremarkable, but total bilirubin was slightly elevated at 1.5. Troponin was negative. Lactate was elevated at 2.4, procalcitonin was negative. Urinalysis was negative for UTI, and respiratory viral panel was also negative. CXR was negative for infiltrates. He received 1 L of IV fluids in the emergency department and cefepime 1 gm. He had urinary hesitancy, and was straight catheterized with 450 mL return. Following this and following IV fluids. He had some urinary frequency. His reports that he has had bladder problems ever since diagnosed with polio. Dr. Naranjo was contacted, and Mr. Mejias was admitted to the hospital for further workup. Review of Systems All systems PM: 10-point ROS was reviewed, no additional remarkable complaints except - Constitutional Constitutional: Present: as per HPI - EENMT Eyes: Absent: change in vision Balance: Present: as per HPI Nose: Present: as per HPI Mouth/Throat: Present: as per HPI - Cardiovascular Cardiovascular: Present: as per HPI Vascular: Present: see HPI - Respiratory Respiratory: Present: as per HPI - Gastrointestinal Gastrointestinal: Present: as per HPI - Genitourinary Genitourinary: Present: as per HPI - Musculoskeletal Musculoskeletal: Present: as per HPI - Integumentary/Breasts Integumentary: Present: as per HPI - Neurological Neurological: Present: as per HPI - Psychiatric Psychiatric: Absent: anxiety, behavioral changes, hallucinations - Endocrine Endocrine: Present: as per HPI - Hematologic/Lymphatic Hematologic/Lymphatic: Present: easy bleeding, easy bruising - Allergic/Immunologic Allergic/Immunologic: Absent: seasonal rhinorrhea Past Medical History Paroxysmal atrial fibrillation. TIA. Hypertension. Syncope. Venous insufficiency. Post Polio syndrome. Glaucoma. Osteoarthritis. 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 Suazo. Bilateral total knee arthroplasties, the most recent was left one which was done in December 2016, Dr. Muniz. Rt ankle ORIF 2015, Dr. Plasencia. Colonoscopy 2012. Hernia repair. Tonsillectomy Family History: Family History (Last Updated 04/19/17 @ 09:38 by Leslie Lucero APRN) Father No problems noted. Mother Stroke Family History Updates: Father of lung cancer at age 89. Mother of stroke at age 92. Twin sisters, both still living at age 84. One has a brain aneurysm and a history of hypertension and breast cancer. The other one has cystitis. Also, has 2 brothers, one is 80 and one is 70, both of whom are healthy. Has 4 children, 1 son requires treatment for iron overproduction. - Social History Smoking status: Never smoker Substance use type: does not use Alcohol intake frequency: does not drink Housing: house Household members: spouse Current occupational status: retired Previous occupational history: [employer] Social history: PCP: Dr. Vegas Pointer Machine Operator: Dr. Blake Medications Home Medications Medication Instructions Recorded Confirmed Type Arginine [l-Arginine] 500 mg PO DAILY 05/13/17 05/13/17 History Betaxolol 0.5% Eye Drops [Betoptic] 1 drop RIGHT EYE BID 05/13/17 05/13/17 History Calcium Carb/D3/Magnesium/Zinc 1 tab PO DAILY 05/13/17 05/13/17 History [Tdvwlsz-Qlh-Cwvm-Vit D Tablet] Cholecalciferol (Vitamin D3) 1,000 unit PO DAILY 05/13/17 05/13/17 History [Vitamin D3] Dorzolamide Eye Drops [Trusopt] 1 drop RIGHT EYE BID 05/13/17 05/13/17 History Ferrous Sulfate [Iron] 325 mg PO DAILY 05/13/17 05/13/17 History Flecainide [Tambocor] 50 mg PO BID 05/13/17 05/13/17 History Losartan Potassium [Cozaar] 50 mg PO DAILY 05/13/17 05/13/17 History Multivitamin [One Daily] 1 tab PO DAILY 05/13/17 05/13/17 History [place]-3/Dha/Epa/Fish Oil [Fish Oil 1,360 mg PO DAILY 05/13/17 05/13/17 History 1,360 mg Softgel] Opti Gold 1 tab PO DAILY 05/13/17 05/13/17 History Polyvinyl Alcohol/Povidone O/S 1 drop LEFT EYE BID 05/13/17 05/13/17 History [Refresh Classic] Rivaroxaban [Xarelto] 20 mg PO WS 05/13/17 05/13/17 History Saw [place] 160 mg PO DAILY 05/13/17 05/13/17 History Ubidecarenone [Co Q-10] 200 mg PO DAILY 05/13/17 05/13/17 History Allergies Allergy/AdvReac Type Severity Reaction Status Date / Time No Known Drug Allergies Allergy Unknown Verified 05/13/17 15:07 Exam Vital Signs: Temperature 100.1 F 05/13/17 16:20 Pulse Rate 89 05/13/17 17:17 Respiratory Rate 22 05/13/17 17:17 Blood Pressure 161/80 H 05/13/17 17:17 Pulse Oximetry 94 05/13/17 17:17 - Constitutional Present: mild distress, well nourished, well developed - Routine HEENT Exam Head: Present: normocephalic Eye: Present: PERRL, scleral injection ENT: Present: mucous membranes moist, oropharynx clear, dentition normal, nares patent - Routine Neck Exam Present: supple. Absent: lymphadenopathy - Routine Chest/Breast/Axilla Exam Chest wall: Absent: tenderness - Routine Respiratory Exam Present: CTA bilaterally - Routine Cardiovascular Exam Present: S1, S2, murmur, irregular rhythm - Routine Abdominal Exam Present: soft, normoactive bowel sounds, tenderness (minor diffuse tenderness), non distended - Routine Extremities Exam Present: no edema, pulses intact, joint swelling (right olecranon; ROM intact; nontender) Comments: arthritic deformities to both hands - Routine Skin Exam Present: intact, dry, warm, ecchymosis (right elbow; + swelling right elbow; ecchymosis noted to left wrist) Comments: face is flushed - Routine Neurological Exam Present: alert, oriented X3, CN II-XII intact, normal speech. Absent: facial asymmetry - Routine Psychiatric Exam Present: normal affect, normal thought process, cooperative Results - Labs CBC & Chem 7: 05/13/17 15:06 05/13/17 15:06 - Imaging and Cardiology Chest x-ray Status: image reviewed by me (no acute findings) Assessment and Plan (1) Diarrhea Current visit: Yes Status: Acute Assessment and Plan: IMPRESSION Diarrhea, possible sepsis versus severe sepsis with fever of 101 and elevated lactate of 2.4. Weakness/acute debility Hyperbilirubinemia, POA (mild) Paroxysmal atrial fibrillation. History of TIA. Hypertension. History of syncope. Venous insufficiency. Post Polio syndrome. PLAN Admit, observation status, under the hospitalist service. Possible sepsis versus severe sepsis, possible GI source. -Per 2012 guidelines, the patient qualifies for severe sepsis due to a lactate of 2.4. However, per the 2016 guidelines, he does not have life-threatening organ dysfunction and thus does not qualify for sepsis. Etiology uncertain; could be viral. -SIRS criteria = fever, tachypnea, tachycardia (SIRS accepted in 2012 guidelines ) -check GI panel for suspected infectious diarrhea -trend lactates -IVF: NS at 100 mL/hr. -if he develops abdominal tenderness or distention, will consider imaging studies and starting antibiotics -diet: clears Weakness/acute debility -consult PT/OT for evaluation -hx of postpolio syndrome; uses a cane occasionally A-fib, HTN -tele -continue flecainide, Cozaar, Xarelto Advanced directives -unknown if he has DPOA; does not have living will -pt requests DNR DVT Prophylaxis: Xarelto Resuscitation Status: Do Not Resuscitate - Physician Narrative Physician: Lauren Naranjo MD Narrative: Date: 05/13/17 Time: 1944 I have independently evaluated and examined this patient. I reviewed the chart, the patient's history, and the HOSPITALITY COORDINATOR/PA's documented findings as above. We discussed and formulated the assessment and plan as above with additions as below: Mr. Mejias was seen with still in the emergency room. He describes having some diarrhea and falls but is historically vague. He denied abdominal pain at the time of my evaluation and remained febrile when seen. 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 Fatigued-appearing male, 101 subsequently dropping to 100.1 Respirations nonlabored, anterior breath sounds clear although airflow diminished Abdomen soft, nontender, mild distention, diminished bowel sounds Soft tissue swelling right elbow with bruising, scattered bruises extremities most notable at the elbow and left shoulder Data as described above; repeat lactic acid 1.4 Chest x-ray reviewed by myself-NAD other than artifact along the left heart border Ambulatory dysfunction with falls, fever, diarrhea-in addition to above plans we 'll obtain orthostatic blood pressures. Continue volume replacement-patient describes impaired oral intake. Cannot exclude aspiration as cause of fever although no indication of pneumonitis on x-ray. I suspect patient would benefit from rehabilitation due to underlying functional limitations from polio. Discussed with Dr. Flores. Hospital Course Summary Disclaimer: The visit summary below is not to be considered part of the above Progress Note. Hospital Course: 05/13/17: Admitted to observation status for weakness, fever, elevated lactate of 2.4, mild leukocytosis, and diarrhea. IVF were provided. He received 1 gm of cefepime in the ED. GI panel ordered. PT/OT consulted.
[2017-05-13 18:41] VITALS: BMI 25.6
[2017-05-13] MEDS ORDERED: ONDANSETRON 4 MG/2 ML INJECTION IVP PRN (19:00)
[2017-05-13] MEDS: NS 1,000 ML IV SCH (20:21)
[2017-05-13] MEDS: BETAXOLOL 0.5% RIGHT EYE SCH (21:43)
[2017-05-13] MEDS: FLECAINIDE 50 MG PO SCH (21:44)
[2017-05-13] MEDS: --POM--RIVAROXABAN 20 MG TABLET PO SCH (21:44)
[2017-05-13] MEDS: DORZOLAMIDE 2% EYE DROPS 10ml RIGHT EYE SCH (21:45)
[2017-05-14] MEDS: NS 1,000 ML IV SCH ×2 (07:18→18:21)
--- NOTE | 2017-05-14 09:56 | Progress Note ---
- Date 05/14/17 Subjective: Patient is seen sitting in his chair eating breakfast. He states he "feels tops " this morning. He has had no further diarrhea. He is eating his clear liquids for breakfast and has no nausea. He has no pain. He complains of his poor balance with walking, but otherwise has no concerns this morning. Objective Vital signs: Temperature 98.8 F 05/14/17 08:00 Pulse Rate 84 05/14/17 08:00 Respiratory Rate 18 05/14/17 08:00 Blood Pressure 128/66 05/14/17 08:00 Pulse Oximetry 91 05/14/17 08:00 Height/Weight/BMI: Height 1.78 m Weight 81.2 kg Body Mass Index 25.6 - Constitutional Present: no acute distress, well nourished, well developed, disheveled Comments: smells of urine - Routine Respiratory Exam Present: CTA bilaterally. Absent: wheezes - Routine Cardiovascular Exam Present: RRR. Absent: murmur - Routine Abdominal Exam Present: soft, normoactive bowel sounds, non distended. Absent: tenderness - Routine Extremities Exam Present: no edema, normal capillary refill - Routine Skin Exam Present: dry, warm Comments: swelling to hands/fingers b/l - r/t arthritis/postpolio. Bruising and swelling to R elbow - Routine Neurological Exam Present: alert, oriented X3, CN II-XII intact - Routine Lymphatic Exam Lymphatic: Absent: adenopathy - Routine Psychiatric Exam Present: normal affect Results - Labs CBC & Chem 7: 05/14/17 04:44 05/14/17 04:44 Assessment and Plan (1) Diarrhea Current visit: Yes Status: Acute Assessment and Plan: IMPRESSION Diarrhea, possible sepsis versus severe sepsis with fever of 101 and elevated lactate of 2.4. Weakness/acute debility Hyperbilirubinemia, POA (mild) Paroxysmal atrial fibrillation. History of TIA. Hypertension. History of syncope. Venous insufficiency. Post Polio syndrome. PLAN GI panel not yet performed as pt has had no further stools Temp has trended back to normal. PT/OT will work with patient today. If patient continues to take fluids well, may back off on IVF's. DVT Prophylaxis: Xarelto Resuscitation Status: Do Not Resuscitate - Physician Narrative Physician: Lauren Naranjo MD Narrative: Date: 05/14/17 Time: 1630 I have independently evaluated and examined this patient. I reviewed the chart, the patient's history, and the COMMUNITY ORGANIZATION WORKER/PA's documented findings as above. We discussed and formulated the assessment and plan as above with additions as below: Mr. Mejias was sleeping when I arrived but awoke to voice and reported simply being fatigued and weak. He denied ongoing abdominal discomfort or diarrhea. He is tolerated liquid diet without difficulty and hopes to advance to regular food today. Afebrile, drowsy; no significant orthostatic drop this afternoon Respirations nonlabored, decreased airflow, breath sounds clear Abdomen benign Increased bruising right elbow/forearm compared to yesterday Doing well, advance diet. Diarrhea appears to of resolved-probable viral gastroenteritis BOSS MINER. PT/OT recommended IRU-discussed with coordinator. Can potentially transfer at any time. Discontinue IV fluids. Hospital Course Summary Disclaimer: The visit summary below is not to be considered part of the above Progress Note. Hospital Course: 05/13/17: Admitted to observation status for weakness, fever, elevated lactate of 2.4, mild leukocytosis, and diarrhea. IVF were provided. He received 1 gm of cefepime in the ED. GI panel ordered. PT/OT consulted. 05/14/17 GI panel not yet performed as pt has had no further stools Temp has trended back to normal. If patient continues to take fluids well, may back off on IVF's
[2017-05-14] MEDS: --POM--LOSARTAN 50 MG TABLET PO SCH (10:05)
[2017-05-14] MEDS: FLECAINIDE 50 MG PO SCH ×2 (10:05→20:38)
[2017-05-14] MEDS: DORZOLAMIDE 2% EYE DROPS 10ml RIGHT EYE SCH ×2 (10:05→20:40)
[2017-05-14] MEDS: BETAXOLOL 0.5% RIGHT EYE SCH ×2 (10:06→20:39)
[2017-05-14] MEDS: --POM--RIVAROXABAN 20 MG TABLET PO SCH (17:58)
[2017-05-14] MEDS: SALINE FLUSH 10ml SYRINGE IVF PRN (20:41)
[2017-05-15 00:44] VITALS: RESP 16
[2017-05-15 00:45] VITALS: O2SAT 93
[2017-05-15 07:37] VITALS: TEMP 98.5
[2017-05-15 07:53] VITALS: BP 142/88
--- NOTE | 2017-05-15 09:52 | Discharge Summary ---
Discharge Information Date of admission: 05/13/17 17:38 Anticipated date of discharge: 05/15/17 Attending Physician: Lauren Naranjo MD Primary care physician: Adam Vegas MD Consults: None - Discharge Diagnosis (1) Diarrhea Status: Acute Diarrhea, possible sepsis versus severe sepsis with fever of 101 and elevated lactate of 2.4. Weakness/acute debility Hyperbilirubinemia, POA (mild) Paroxysmal atrial fibrillation. History of TIA. Hypertension. History of syncope. Venous insufficiency. Post Polio syndrome. - Procedures Procedures: None - Laboratory Labs: 05/14/17 04:44 05/14/17 04:44 - Microbiology Microbiology 05/13/17 15:13 Peripheral/Iv Start Blood Culture - Preliminary No Growth After 1 Day 05/13/17 15:06 Peripheral/Iv Start Blood Culture - Preliminary No Growth After 1 Day - Radiology Radiology: 05/13/17- Chest Xray- IMPRESSION: Stable appearance of the chest without acute cardiopulmonary disease. - Pathology None History of Present Illness HPI: Toi Mejias is an 87-year-old male who lives at home with his . Much of the history is obtained from his , as Toi was sleeping for part of the interview. She states that he was up several times with diarrhea the previous night. Once he woke up, he was able to confirm this and also affirmed that there is no blood in it, however, he could not quantify the number of times he actually had diarrhea. This morning, after he brought wood up for the wood- burning stove, he reached the top of the steps and complained of extreme fatigue. He became weak and he fell forward towards the ground. He did not strike his head or lose consciousness. He has a contusion to his right elbow, and thinks possibly he injured his elbow during the fall. His was unable to get him up from the floor and called one of their sons to help him into the recliner. Soon he had to use the bathroom, and Mrs. Mejias carefully assisted him to the bathroom, but she states that "it was a struggle". From there, he requested to go to bed, but she took him to the kitchen and she made him some chicken noodle soup. He ate half a can, and thought he would vomit. He complained of a stomachache. When he stood up again, she was afraid he would pass out. He has a history of syncope, and she can tell when it will occur because he begins to on and becomes diaphoretic. Luckily, he did not have a syncopal event. His checked his temperature and noted it to be 101 axillary. They called a family member who is a physical therapist, and she recommended evaluation in the emergency department. He has not had any respiratory symptoms, new cough (he has a chronic cough which his attributes to his blood pressure medication), or sinus congestion. His states that he does occasionally have a little trouble choking when he eats. He denies a headache but admits to feeling a little dizzy. He denies chest pain or palpitations. His legs have a tendency for swelling and he wears MARZENA hose. His denies confusion, but states that his responses have been slow. On arrival to the emergency department, he was febrile at 101. He was slightly tachypneic. Blood pressure was elevated at 178/97. He was maintaining adequate saturations on room air. Labs showed mild leukocytosis with a white count of 11.4, mild normocytic anemia with a hemoglobin of 13.4. There were 95% neutrophils. Chemistries were largely unremarkable, but total bilirubin was slightly elevated at 1.5. Troponin was negative. Lactate was elevated at 2.4, procalcitonin was negative. Urinalysis was negative for UTI, and respiratory viral panel was also negative. CXR was negative for infiltrates. He received 1 L of IV fluids in the emergency department and cefepime 1 gm. He had urinary hesitancy, and was straight catheterized with 450 mL return. Following this and following IV fluids. He had some urinary frequency. His reports that he has had bladder problems ever since diagnosed with polio. Dr. Naranjo was contacted, and Mr. Mejias was admitted to the hospital for further workup. Objective Vital signs: Temperature 98.5 F 05/15/17 07:35 Pulse Rate 85 05/15/17 07:52 Respiratory Rate 16 05/15/17 07:35 Blood Pressure 142/88 H 05/15/17 07:52 Pulse Oximetry 93 05/15/17 07:35 Height/Weight/BMI: Height 1.78 m Weight 81.6 kg Body Mass Index 25.6 - Constitutional Present: no acute distress, well nourished, well developed - Routine HEENT Exam Eye: Present: EOMI ENT: Present: mucous membranes moist, dentition normal - Routine Respiratory Exam Present: CTA bilaterally. Absent: wheezes - Routine Cardiovascular Exam Present: RRR, S1, S2. Absent: murmur - Routine Abdominal Exam Present: soft, normoactive bowel sounds, non distended. Absent: tenderness - Routine Extremities Exam Present: full ROM - Routine Back/Spine/Pelvis Exam Back/Spine: Present: full ROM - Routine Skin Exam Present: intact, dry, warm - Routine Neurological Exam Present: alert, oriented X3, CN II-XII intact, moving all extremities - Routine Lymphatic Exam Lymphatic: Absent: adenopathy - Routine Psychiatric Exam Present: normal affect, cooperative Hospital Course This is a general summary of the patient's hospital course. For more details refer to the complete medical record. Hospital course: 05/13/17: Admitted to observation status for weakness, fever, elevated lactate of 2.4, mild leukocytosis, and diarrhea. IVF were provided. He received 1 gm of cefepime in the ED. GI panel ordered. PT/OT consulted. 05/14/17 GI panel not yet performed as pt has had no further stools Temp has trended back to normal. If patient continues to take fluids well, may back off on IVF's 05/15/17- Discharge Mr Mejias is seen and examined today while resting in bed in with family at the bedside. He has no acute pain or complaints. He notes that he is not very coordinated and agrees with the plan to go to IRU for further therapy for strengthening. No episodes of diarrhea or nausea. Having good oral intake. He remains afebrile. Discharge Plan - Discharge Disposition Discharge Date: 05/15/17 Disposition: 63 To [facility] IN[facility] *Condition: Stable for Transport Reason For Visit (Visit label in EMR): fever,diarrhea - Discharge Medications *Discharge Medications: Continue Cholecalciferol (Vitamin D3) [Vitamin D3] 1,000 unit PO DAILY Arginine [l-Arginine] 500 mg PO DAILY Ubidecarenone [Co Q-10] 200 mg PO DAILY Saw [place] 160 mg PO DAILY Multivitamin [One Daily] 1 tab PO DAILY [place]-3/Dha/Epa/Fish Oil [Fish Oil 1,360 mg Softgel] 1,360 mg PO DAILY Calcium Carb/D3/Magnesium/Zinc [Qrsxapt-Jar-Ctwc-Vit D Tablet] 1 tab PO DAILY Dorzolamide Eye Drops [Trusopt] 1 drop RIGHT EYE BID Betaxolol 0.5% Eye Drops [Betoptic] 1 drop RIGHT EYE BID Rivaroxaban [Xarelto] 20 mg PO WS Losartan Potassium [Cozaar] 50 mg PO DAILY Flecainide [Tambocor] 50 mg PO BID Opti Gold 1 tab PO DAILY Ferrous Sulfate [Iron] 325 mg PO DAILY Polyvinyl Alcohol/Povidone O/S [Refresh Classic] 1 drop LEFT EYE BID - Discharge Packet/Instructions *Diet: Regular *Activity: Per PT *Pain Management/Treatment: tylenol *Expected Signs/Symptoms: Improvement in strength *Pending Lab/Results: No Pending Lab - IRU/GEN Discharge/Transfer - Referrals/Follow Up - Patient Handouts Patient Handouts: Fever in Adults (GEN) - Dismissal Complete Discharge Instructions are:: Complete Physician Narrative - Narrative Physician: Lauren Naranjo MD Attestation Narrative: Date: 05/15/17 Time: 1155 I have independently evaluated and examined this patient. I reviewed the chart, the patient's history, and the ADMINISTRATIVE ASSISTANT OFFICE MANAGER/PA's documented findings as above. We discussed and formulated the assessment and plan as above with additions as below: Mr. Mejias had a formed BM this am; he denies having bloody diarrhea prior to admission. No abdominal discomfort or other complaints today. He denies elbow pain but notes minor discomfort in the right elbow when he pushes himself forward. Patient is alert, speech fluent, cooperative; abdomen is benign. Stool study obtained on formed specimen this a.m.-positive for toxigenic Escherichia coli by PCR, [id number] negative. Given complete resolution of GI symptoms and fever I don't believe this is of any clinical significance and treatment is not indicated. The patient is continent and thus isolation is not needed. Stable for transfer to IRU as planned.
[2017-05-15] MEDS: DORZOLAMIDE 2% EYE DROPS 10ml RIGHT EYE SCH (09:53)
[2017-05-15] MEDS: BETAXOLOL 0.5% RIGHT EYE SCH (09:54)
[2017-05-15] MEDS: FLECAINIDE 50 MG PO SCH (09:54)
[2017-05-15] MEDS: --POM--LOSARTAN 50 MG TABLET PO SCH (09:55)
[2017-05-15 10:12] VITALS: PULSE 73
== END 2017-05-15 12:00 ==
LOC: ED 14:23 → MED 14:23
PROVIDERS: ADMIT Internal Medicine; ATTEND Internal Medicine

== ENCOUNTER 2017-05-15 12:00 | Inpatient (IN) ==
[2017-05-15 12:57] VITALS: BMI 25.4
--- NOTE | 2017-05-15 14:46 | IRU History & Physical Report ---
[facility] IRU Date: Date: 05/15/17 Time: 1428 Chief complaint: I'm weak HPI: Mr. Mejias is a very pleasant 87-year-old male from [place], [place]. 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 Referring physician is Dr. Jonathan Naranjo, hospitalist at [facility]. His primary care physician is Dr. Adam Vegas. The patient reports that he had frequent loose stools typically about 5 daily or so for 2-3 days prior to admission. He noted that there was no blood in the stool although he did develop some abdominal discomfort. He states that he was walking in his home climbing some stairs and reported that he was extremely tired. He felt weak and fell to the ground. Patient states that he was aware of the entire event and remembers the entire event. He states he did not lose consciousness. He reports he did not strike his head but did strike his right elbow and there is a large contusion/ecchymosis in that area at the present time. The patient was unable to get up and his was not able to help him. She called one of their children to assist. He then ate some soup and developed nausea along with the abdominal pain. He was very unsteady on his feet and could not stand safely at that point. His did note his temperature to be 101 axillary. The patient was then sent to the emergency department for evaluation. His fever was 101 in the emergency department. He also had a white count of 11, 400 with a left shift with over 90% neutrophils. Blood cultures were obtained and were negative. Exam of stool is demonstrating enterotoxigenic Escherichia coli although this was on a formed specimen and therefore does not have great relevance. The patient was somewhat short of breath and did have an elevated blood pressure in the emergency department. He was admitted to the hospital as an outpatient. He was given IV fluids. His BUN/creatinine ratio was elevated at 27. He appeared to be dehydrated based on this. In addition he continued to run a fever for a time. Even this morning his temperature was 99. His urinalysis has been negative. Chest x-ray was negative and blood cultures were negative as noted above. As a result of this he has sustained significant functional deficits. Prior to this he was independent at home although did use a single-point cane from time to time. Because of the functional deficits along with medical issues which will be described subsequently, he was felt to be a good candidate for inpatient rehabilitation. The patient reports at least 3 episodes of falling over the last 12 months. He thinks he may have fallen more but is not certain. He does have a history of syncope for many years. It is not clear if a diagnosis has been reached or not. He states he did not lose consciousness this time but did have some lightheadedness. Also had reduced appetite for a time. He is at risk for dehydration. He does have history of atrial fibrillation and is on Xarelto. He is at risk for bleeding because of his fall risk. In addition, his hemoglobin did drop from 13.4 down to 11.7 with rehydration. He has had no evidence of acute blood loss however. His platelet count is reduced at 125,000 and again he is at risk for bleeding in view of the Xarelto plus low platelets. The patient specifically told me that he does not wish resuscitation in the event of a cardiac or pulmonary arrest. The patient does live with his in their own home. He has 5 steps to get into their home he states. His level of function prior to the current event is as follows: He was independent for eating, grooming, bathing, upper and lower body dressing. He was modified independent for toileting, bed/chair/wheelchair transfers, toilet transfers and walking. He does use a single-point cane. 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 Current level of function is as follows: He is supervision level for eating, requires minimum assistance for grooming, moderate assistance for bathing and upper body dressing. He requires total assistance for lower body dressing and toileting. He requires maximum assistance for bed/chair/wheelchair transfers, minimum assistance for toilet transfers and maximum assistance for walking. He requires a rolling walker and is able to walk 120 feet. The following medical conditions are noted and require active monitoring and/or management: 1. Acute gastroenteritis characterized by loose stools, fever, leukocytosis and poor appetite with abdominal pain. He is at risk for dehydration and generalized weakness, as well as electrolyte abnormalities. 2. Acute anemia secondary to dilution. We are uncertain as to his baseline hemoglobin although with rehydration it is running around 11 g percent. He is at risk for continued anemia. 3. Atrial fibrillation on Xarelto: He is at risk for bleeding as well as for neurologic events. 4. Thrombocytopenia: His bilateral cousin 125,000. He is at risk for bleeding in view of this as well as his use of anticoagulants for his atrial fibrillation. 5. History of syncope: While this is a chronic issue, he does have frequent episodes of lightheadedness and is at risk for falls as evidenced by his 3 episodes of falling in the last year. In addition in view of his fall at home he is at increased risk of lightheadedness and syncope. The following therapies will be needed: 1. Physical therapy: for transfers and ambulation and stairs. 2. Occupational therapy: for ADL's and transfers. 3. Medical management: for the above conditions. 4. 24 hour Rehabilitation Nursing to monitor and address the following: Monitor for evidence of bleeding, neurologic change, reduce fall risk [facility] Patient Stated Medical History Syncope Yes: when over worked or stressed Transient Ischemic Attacks ( Yes TIA) Cataracts Yes: Bilateral Glaucoma Yes Angina Yes Hypertension Yes Other Cardiology Yes: afib Constipation Yes Hiatal Hernia Yes Hx Incontinence Yes Hx Urinary Tract Infection Yes Other troubles urinating at times, enlarged prostate Other Hematologic Yes: Daily Xarelto Other Musculoskeletal Yes: Polio Chemotherapy Yes: skin cancer removed Other Yes: skin cancer removed Clinic Medical History (Last Reviewed 02/20/17 @ 12:24 by WESLEY [place]) Polio (Acute Medical) TIA (transient ischemic attack) (Acute Medical) Stroke (Acute Medical) Medical History Updates: 1. According to the patient his "TIA" is characterized by syncopal spells. I could not elicit a history of unilateral weakness etc. 2. Hypertension. 3. Paroxysmal atrial fibrillation. 4. Syncope uncertain cause. 5. Post polio syndrome. 6. Osteoarthritis. 7. Glaucoma. 8. Cataracts which have not yet been removed. 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 Suazo. Bilateral total knee arthroplasties, the most recent was left one which was done in December 2016, Dr. Muniz. Rt ankle ORIF 2015, Dr. Plasencia. Colonoscopy 2012. Hernia repair. Tonsillectomy Family History: Family History (Last Updated 04/19/17 @ 09:38 by Leslie Lucero APRN) Father No problems noted. Mother Stroke Family History Updates: Father of lung cancer. He had a pacemaker as well. Apparently had a pneumothorax resulting in his demise according to the patient. Mother had stroke and dementia for a number of years. 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 He lives with his in their own home. He remains very active. Review of Systems - Constitutional Constitutional: Present: anorexia, fatigue, fever(s), lethargy. Absent: chills , headache(s), malaise, night sweats, weakness, weight gain, weight loss - EENMT Eyes: Absent: blurry vision, change in vision, diplopia Mouth/Throat: Absent: changes in swallowing, painful swallowing, change in taste , bleeding gums, change in voice - Cardiovascular Cardiovascular: Absent: chest pain, palpitations, syncope, dyspnea on exertion, orthopnea, edema, cyanosis, heart murmur Rhythm: Present: regular rhythm, other (reportedly has paroxysmal atrial fibrillation. Currently sounds as though he is any sinus mechanism.) Vascular: Absent: intermittent claudication, pedal edema, unilateral swelling - Respiratory Respiratory: Present: dyspnea (reports intermittent dyspnea. Denies significant worsening at present.). Absent: cough, hemoptysis, dyspnea on exertion, wheezing, pain on inspiration, chest congestion, excessive phlegm production - Gastrointestinal Gastrointestinal: Present: abdominal pain, diarrhea. Absent: change in bowel habits, constipation, dyspepsia, dysphagia, early satiety, hematochezia, melena , nausea, vomiting - Genitourinary Genitourinary: Present: difficulty urinating, urinary frequency, urinary urgency - Musculoskeletal Musculoskeletal: Present: back pain (reports a several month history of discomfort in the low neck area.), myalgias. Absent: abnormal gait, arthralgias , joint swelling, limited range of motion, muscle weakness - Integumentary/Breasts Integumentary: Absent: alopecia, erythema, lesions, pruritus, rash, jaundice - Neurological Neurological: Absent: abnormal gait, abnormal movements, abnormal speech, confusion, convulsions, dizziness, focal weakness, frequent falls, headache(s), loss of vision, memory loss, numbness, paresthesias, tremor(s) - Psychiatric Psychiatric: Absent: abnormal sleep pattern, anxiety, depression - Endocrine Endocrine: Absent: cold intolerance, flushing, heat intolerance, palpitations - Hematologic/Lymphatic Hematologic/Lymphatic: Absent: easy bleeding, easy bruising, lymphadenopathy - Allergic/Immunologic Allergic/Immunologic: Absent: urticaria Medications Home Medications Medication Instructions Recorded Confirmed Type Arginine [l-Arginine] 500 mg PO DAILY 05/13/17 05/13/17 History Betaxolol 0.5% Eye Drops [Betoptic] 1 drop RIGHT EYE BID 05/13/17 05/13/17 History Calcium Carb/D3/Magnesium/Zinc 1 tab PO DAILY 05/13/17 05/13/17 History [Ferezyj-Nqz-Nwaz-Vit D Tablet] Cholecalciferol (Vitamin D3) 1,000 unit PO DAILY 05/13/17 05/13/17 History [Vitamin D3] Dorzolamide Eye Drops [Trusopt] 1 drop RIGHT EYE BID 05/13/17 05/13/17 History Ferrous Sulfate [Iron] 325 mg PO DAILY 05/13/17 05/13/17 History Flecainide [Tambocor] 50 mg PO BID 05/13/17 05/13/17 History Losartan Potassium [Cozaar] 50 mg PO DAILY 05/13/17 05/13/17 History Multivitamin [One Daily] 1 tab PO DAILY 05/13/17 05/13/17 History [place]-3/Dha/Epa/Fish Oil [Fish Oil 1,360 mg PO DAILY 05/13/17 05/13/17 History 1,360 mg Softgel] Opti Gold 1 tab PO DAILY 05/13/17 05/13/17 History Polyvinyl Alcohol/Povidone O/S 1 drop LEFT EYE BID 05/13/17 05/13/17 History [Refresh Classic] Rivaroxaban [Xarelto] 20 mg PO WS 05/13/17 05/13/17 History Saw Latta 160 mg PO DAILY 05/13/17 05/13/17 History Ubidecarenone [Co Q-10] 200 mg PO DAILY 05/13/17 05/13/17 History Allergies Allergy/AdvReac Type Severity Reaction Status Date / Time No Known Drug Allergies Allergy Unknown Verified 05/13/17 15:07 Results IRU - Labs Labs: Reviewed labs and results from recent outpatient admission. Exam Vital Signs: Temperature 97.8 F 05/15/17 12:18 Pulse Rate 75 05/15/17 12:18 Respiratory Rate 18 05/15/17 12:18 Blood Pressure 158/83 H 05/15/17 12:18 Pulse Oximetry 94 05/15/17 12:18 Height/Weight/BMI: Height 1.78 m Weight 80.4 kg Body Mass Index 25.4 - Constitutional Present: no acute distress, well nourished, well developed, average body habitus , cooperative - Routine HEENT Exam Head: Present: normocephalic, atraumatic. Absent: cushingoid faces, abrasion, laceration, hematoma Eye: Present: EOMI, PERRL. Absent: conjunctival icterus, scleral injection, periorbital swelling, nystagmus ENT: Present: mucous membranes moist, oropharynx clear. Absent: dentition normal (has multiple missing teeth and teeth are in poor repair) - Routine Neck Exam Present: supple, full ROM, trachea midline. Absent: lymphadenopathy, thyromegaly, tenderness, swelling - Routine Chest/Breast/Axilla Exam Chest wall: Absent: tenderness, mass Axillae: Absent: lymphadenopathy, mass - Routine Respiratory Exam Present: CTA bilaterally. Absent: accessory muscle use, decreased breath sounds , prolonged expiratory phase, rales, respiratory distress, rhonchi, stridor, wheezes, crackles, distant breath sounds - Routine Cardiovascular Exam Present: RRR, S1, S2, no murmur. Absent: gallop, S3, S4, click, irregular rhythm Comments: Has history of paroxysmal atrial fibrillation. Appears to be in a regular rhythm at present. - Routine Abdominal Exam Present: soft, normoactive bowel sounds, tenderness (he is somewhat tender in the epigastrium. No rebound is present and no organomegaly is noted.), non distended. Absent: rebound, guarding, firm, rigid, organomegaly, mass, hernia, wound - Routine Extremities Exam Present: no edema, non tender, pulses intact. Absent: cyanosis, clubbing - Routine Back/Spine/Pelvis Exam Back/Spine: Present: full ROM. Absent: scoliosis, kyphosis - Routine Skin Exam Present: intact, dry, warm. Absent: cyanosis, erythema, pallor, mottling, petechiae, urticaria, lesions, jaundice - Routine Neurological Exam Present: alert, oriented X3, CN II-XII intact, moving all extremities, normal speech - Routine Psychiatric Exam Present: normal affect, normal thought process, cooperative, good insight, good judgment. Absent: depressed, anxious Sepsis Assessment - Evaluation Severe Sepsis: none seen IRU A/P (1) Gastroenteritis and colitis, viral Current visit: Yes Status: Acute This patient has experienced a recent episode of acute gastroenteritis. It is likely this was of viral origin. He continues to be weak and has suffered multiple functional deficits as a result of this. He is at risk for dehydration , electrolyte imbalance and is at risk of falling. (2) Generalized weakness Current visit: Yes Status: Acute Patient has evidence of generalized weakness and this is manifested by multiple functional deficits. This is likely due to his recent viral enteritis plus or minus his anemia. (3) A-fib Qualifiers: Atrial fibrillation type: paroxysmal Qualified Code(s): I48.0 - Paroxysmal atrial fibrillation Current visit: No Status: Chronic He has a history of atrial fibrillation and is on Xarelto. He is at risk for bleeding or for neurologic complications (4) Anemia Qualifiers: Anemia type: unspecified type Qualified Code(s): D64.9 - Anemia, unspecified Current visit: Yes Status: Acute Hemoglobin did drop to 11.7 from 13.4 with rehydration. Etiology of his anemia is not clear. This will be monitored carefully. (5) Thrombocytopenia Current visit: Yes Status: Acute His platelet count is low at 125,000. Etiology is not clear. He is at risk for bleeding. DVT Prophylaxis: SCD's, Xarelto Resuscitation Status: Do Not Resuscitate - Course Hospital Course: Donte Bustamante MD: - Interventions to Obtain Goals PT Treatment Plan: Balance/Proprioception, Functional Activities, Gait Training , Patient/Family Education OT Treatment Plan: ADL (Basic Care), Balance Training, IADL, Pt./Family Education Goals Progress/Modifications: The patient has suffered generalized weakness and multiple functional deficits due to a recent viral gastroenteritis. He is best served by a multidisciplinary approach including PT, OT, 24 hour rehabilitation nursing monitoring to prevent falls and to monitor for cardiac arrhythmias etc. He has a history of syncope and is at risk for further lightheadedness or falls.
--- NOTE | 2017-05-15 14:59 | IRU 24Hr Post Admit Eval ---
24 Hr Post Admission Physical - Relevant Changes Relevant Changes: No Reviewed: I have reviewed the patient's information and concur with the finding and results of the pre-admission screen. Certification: I certify the patient for rehabilitation. - Patient Condition (1) Gastroenteritis and colitis, viral Status: Acute Code(s): A08.4 - Viral intestinal infection, unspecified Classification: IRF Tx That Should Address Diagnosis, Diagnosis Requiring Medical Follow Up (2) Generalized weakness Status: Acute Code(s): R53.1 - Weakness Classification: Present on IRF Admission, IRF Tx That Should Address Diagnosis, Diagnosis Requiring Medical Follow Up (3) A-fib Status: Chronic Qualifiers: Atrial fibrillation type: paroxysmal Qualified Code(s): I48.0 - Paroxysmal atrial fibrillation Code(s): I48.91 - Unspecified atrial fibrillation Classification: Present on IRF Admission, IRF Tx That Should Address Diagnosis, Diagnosis Requiring Medical Follow Up (4) Anemia Status: Acute Qualifiers: Anemia type: unspecified type Qualified Code(s): D64.9 - Anemia, unspecified Code(s): D64.9 - Anemia, unspecified Classification: Present on IRF Admission, IRF Tx That Should Address Diagnosis, Diagnosis Requiring Medical Follow Up (5) Thrombocytopenia Status: Acute Code(s): D69.6 - Thrombocytopenia, unspecified Classification: Present on IRF Admission, IRF Tx That Should Address Diagnosis, Diagnosis Requiring Medical Follow Up - Prior Functional Status Lives With: Spouse Residence Type: Apartment/Private Home Assitive Devices: Straight Cane Prior Functional Status: Indep. at home or school, Used assistive device, Indep. w/ all home ADL - Current Functional Status Current Level of Function: Current level of function is as follows: He is supervision level for eating, requires minimum assistance for grooming, moderate assistance for bathing and upper body dressing. He requires total assistance for lower body dressing and toileting. He requires maximum assistance for bed/chair/wheelchair transfers, minimum assistance for toilet transfers and maximum assistance for walking. He requires a rolling walker and is able to walk 120 feet. Failed Alternative Therapy: Yes Patient Requirements: The patient requires oversight by rehabilitation physician to manage their rehabilitation treatment plan and multidisciplinary approach to care that can only be provided in an IRF and requires a multidisciplinary approach to care, provided by professional PTs, OTs, STs, dieticians, RTs, rehabilitation nurses and is not available in lesser levels of care. Limitations Req: Mobility Impairment, ADL Impairment Physical Therapy Minutes: 90 Occupational Therapy Minutes: 90 Therapy: The patient is to receive therapy at least 5 days a week. - Complications/Comorbidities Impact on Functional Outcomes: The patient's recent viral illness with weakness may negatively impact his functional outcome. Barriers to Discharge: Weakness, Balance, Endurance - Plan to Avoid Complications Plan to Avoid Complications: The patient cannot receive this care in a lesser intensive setting such as Long-Term or Outpatient Therapy due to the patient requiring the following : In view of his medical problems he requires a multidisciplinary approach with medical supervision. He requires physical therapy and occupational therapy to improve his functional status. In addition he requires 24 hour rehabilitation nursing monitoring to prevent falls, monitor for bleeding and to assess and monitor her lightheadedness/syncope recurrence.
[2017-05-15] MEDS: RIVAROXABAN 20 MG TABLET PO SCH (17:50)
[2017-05-15] MEDS: BETAXOLOL 0.5% RIGHT EYE SCH (20:05)
[2017-05-15] MEDS: FLECAINIDE 50 MG TABLET PO SCH (20:06)
[2017-05-15] MEDS: DORZOLAMIDE 2% EYE DROPS 10ml RIGHT EYE SCH (20:08)
[2017-05-16] MEDS: REFRESH OPTIVE LEFT EYE SCH ×2 (08:25→20:06)
[2017-05-16] MEDS: BETAXOLOL 0.5% RIGHT EYE SCH ×2 (08:36→20:05)
[2017-05-16] MEDS: FLECAINIDE 50 MG TABLET PO SCH ×2 (08:37→20:06)
[2017-05-16] MEDS: DORZOLAMIDE 2% EYE DROPS 10ml RIGHT EYE SCH ×2 (08:37→20:05)
[2017-05-16] MEDS: LOSARTAN 50 MG TABLET PO SCH (08:37)
--- NOTE | 2017-05-16 10:28 | Consult Note ---
Consult Information - Data of Consult Consult date: 05/16/17 Requesting Physician: Donte Bustamante MD Primary Care Provider: Adam Vegas MD Family Provider: Adam Vegas MD - Consult Narrative Reason for consult: Medical mangement A-fib, thrombocytopenia History of present illness: Mr Mejias is a pleasant 87-year-old male who was initially admitted on 05/13/17 for diarrhea, weakness and debility. He was hydrated with fluids and loose stools resolved. Stool study was obtained that was positive for toxigenic Escherichia coli, however, this is not of any clinical significance and does not require treatment. Given his weakness and debility, accompanied with recent falls he was accepted to the IRU unit for ongoing therapy and strengthening. He is seen this morning follow shower and work with occupational therapy. He is up ambulating with his walker and doing well. States that overall he is feeling better, and notes a improvement today. He is without any complaints of pain and denies feeling short of breath. Appetite has improved. Signs this morning. Reviewed and normal. Patient is afebrile. Morning labs were obtained. CBC and BMP. Overall unremarkable, other than hemoglobin of 11.1. 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 Suazo. Bilateral total knee arthroplasties, the most recent was left one which was done in December 2016, Dr. Muniz. Rt ankle ORIF 2015, Dr. Plasencia. Colonoscopy 2012. Hernia repair. Tonsillectomy Family History Updates: Father of lung cancer at age 89. Mother of stroke at age 92. Twin sisters, both still living at age 84. One has a brain aneurysm and a history of hypertension and breast cancer. The other one has cystitis. Also, has 2 brothers, one is 80 and one is 70, both of whom are healthy. Has 4 children, 1 son requires treatment for iron overproduction. 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 Blake Review of Systems All systems PM: 10-point ROS was reviewed, no additional remarkable complaints except - Constitutional Constitutional: Present: fatigue, weakness - Integumentary/Breasts Integumentary Comments: Ecchymosis to the right elbow Medications Home Medications Medication Instructions Recorded Confirmed Type Arginine [l-Arginine] 500 mg PO DAILY 05/13/17 05/13/17 History Betaxolol 0.5% Eye Drops [Betoptic] 1 drop RIGHT EYE BID 05/13/17 05/13/17 History Calcium Carb/D3/Magnesium/Zinc 1 tab PO DAILY 05/13/17 05/13/17 History [Ifbfgtz-Uvl-Cbnp-Vit D Tablet] Cholecalciferol (Vitamin D3) 1,000 unit PO DAILY 05/13/17 05/13/17 History [Vitamin D3] Dorzolamide Eye Drops [Trusopt] 1 drop RIGHT EYE BID 05/13/17 05/13/17 History Ferrous Sulfate [Iron] 325 mg PO DAILY 05/13/17 05/13/17 History Flecainide [Tambocor] 50 mg PO BID 05/13/17 05/13/17 History Losartan Potassium [Cozaar] 50 mg PO DAILY 05/13/17 05/13/17 History Multivitamin [One Daily] 1 tab PO DAILY 05/13/17 05/13/17 History [place]-3/Dha/Epa/Fish Oil [Fish Oil 1,360 mg PO DAILY 05/13/17 05/13/17 History 1,360 mg Softgel] Opti Gold 1 tab PO DAILY 05/13/17 05/13/17 History Polyvinyl Alcohol/Povidone O/S 1 drop LEFT EYE BID 05/13/17 05/13/17 History [Refresh Classic] Rivaroxaban [Xarelto] 20 mg PO WS 05/13/17 05/13/17 History Saw [place] 160 mg PO DAILY 05/13/17 05/13/17 History Ubidecarenone [Co Q-10] 200 mg PO DAILY 05/13/17 05/13/17 History Allergies Allergy/AdvReac Type Severity Reaction Status Date / Time No Known Drug Allergies Allergy Unknown Verified 05/15/17 16:56 Exam Vital Signs: Temperature 98.2 F 05/16/17 07:40 Pulse Rate 70 05/16/17 07:40 Respiratory Rate 16 05/16/17 07:40 Blood Pressure 134/83 05/16/17 07:40 Pulse Oximetry 95 05/16/17 07:40 Height/Weight/BMI: Height 1.78 m Weight 80.4 kg Body Mass Index 25.4 - Constitutional Present: no acute distress, well nourished, well developed - Routine HEENT Exam Eye: Present: EOMI ENT: Present: mucous membranes moist, dentition normal - Routine Respiratory Exam Present: CTA bilaterally. Absent: wheezes - Routine Cardiovascular Exam Present: RRR, S1, S2. Absent: murmur - Routine Abdominal Exam Present: soft, normoactive bowel sounds, non distended. Absent: tenderness - Routine Extremities Exam Present: pulses intact Comments: Compression socks to BLE - Routine Back/Spine/Pelvis Exam Back/Spine: Present: full ROM - Routine Skin Exam Present: intact, dry, warm - Routine Neurological Exam Present: alert, oriented X3, CN II-XII intact - Routine Psychiatric Exam Present: normal affect Results - Labs CBC & Chem 7: 05/16/17 04:26 05/16/17 04:26 Assessment and Plan (1) General weakness Current visit: Yes Status: Acute (2) Anemia Current visit: Yes Status: Acute (3) At risk for dehydration Current visit: Yes Status: Acute Assessment and Plan: Impression General weakness Post polio syndrome Risk for dehydration Recent gastroenteritis Anemia Atrial fibrillation Thrombocytopenia History of syncope and falls Chronic anticoagulation HTN Plan Agree with admission to the inpatient rehabilitation unit under the care of Dr. Bustamante for ongoing therapy, improve strength and function. Given recent gastroenteritis and need for IV hydration acutely patient is at risk for continued dehydration. We'll continue to monitor routine labs, given mild anemia and thrombocytopenia. Patient is chronically on Xarelto for anticoagulation given. Paroxysmal atrial fibrillation monitor Her for evidence of acute GI bleeding. Monitor blood pressure, continue on losartan 50 milligrams daily. Encourage work with PT and OT for ongoing strengthening The hospitalists services will continue to follow patient during his stay on IRU At time of discharge medical care is to return to PCP Dr Vegas DVT Prophylaxis: Xarelto Resuscitation Status: Do Not Resuscitate - Physician Narrative Physician: Lauren Naranjo MD Narrative: Date: 05/16/17 Time: 1800 I have independently evaluated and examined this patient. I reviewed the chart, the patient's history, and the CARDIOGRAPHER/PA's documented findings as above. We discussed and formulated the assessment and plan as above with additions as below: Mr. Mejias was seen in the dining area and reported that he felt well and has had no recurrence of diarrhea or weakness. He denied dyspnea and reports his appetite is good. I saw him in the halls earlier today using a wheelchair to visit his son on the surgical unit-patient reports he's surprised he couldn't move more quickly in the wheelchair as previously used wheelchair with better mobility that at present. He's ambulating with standby assistance and feels stable. NAD, alert, appears much improved from several days ago Respirations nonlabored, good airflow, breath sounds clear Irregular rhythm Abdomen soft, nontender Patient reports he thinks falls occur when he becomes fatigued and doesn't take time to rest. Additionally advised him that with post polio syndrome minor illnesses will have significant impact on his functional status. Hemodynamically stable, laboratory data unremarkable. Medically stable. Hospital Course Summary Disclaimer: The visit summary below is not to be considered part of the above Progress Note. Hospital Course: 05/16/17 Impression General weakness Risk for dehydration Recent gastroenteritis Anemia Atrial fibrillation Thrombocytopenia History of syncope and falls Chronic anticoagulation Post polio syndrome HTN Plan Agree with admission to the inpatient rehabilitation unit under the care of Dr. Bustamante for ongoing therapy, improve strength and function. Given recent gastroenteritis and need for IV hydration acutely patient is at risk for continued dehydration. We'll continue to monitor routine labs, given mild anemia and thrombocytopenia. Patient is chronically on Xarelto for anticoagulation given. Paroxysmal atrial fibrillation monitor Her for evidence of acute GI bleeding. Monitor blood pressure, continue on losartan 50 milligrams daily. Encourage work with PT and OT for ongoing strengthening The hospitalists services will continue to follow patient during his stay on IRU At time of discharge medical care is to return to PCP Dr Vegas
[2017-05-16] MEDS: RIVAROXABAN 20 MG TABLET PO SCH (17:44)
[2017-05-17] MEDS: BETAXOLOL 0.5% RIGHT EYE SCH ×2 (08:38→21:16)
[2017-05-17] MEDS: FLECAINIDE 50 MG TABLET PO SCH ×2 (08:39→21:17)
[2017-05-17] MEDS: DORZOLAMIDE 2% EYE DROPS 10ml RIGHT EYE SCH ×2 (08:39→21:16)
[2017-05-17] MEDS: REFRESH OPTIVE LEFT EYE SCH ×2 (08:40→21:17)
[2017-05-17] MEDS: LOSARTAN 50 MG TABLET PO SCH (08:40)
--- NOTE | 2017-05-17 10:04 | IRU Progress Note ---
- Subjective/Serverity of Illness Date: 05/17/17 Mr. Mejias was evaluated in his room on the inpatient rehabilitation unit. His son was present with him. The patient would like to go home. However he still requires the use of a front-wheeled walker. His son indicates that in order to go home he will need to either use a cane or they will need to make some adjustments at home from a space consideration. The patient denies any lightheadedness. He reports his bowels are fairly controlled at the present time and he denies any diarrhea. He denies any abdominal pain. His intake appears to be adequate. He denies any chest pain or shortness of breath. He reports that he is able to tolerate therapy reasonably well. Brief therapy update: For occupational therapy he is contact-guard assistance for most activities. He is cooperative and demonstrated good understanding. Per physical therapy he still requires front-wheeled walker and is able to walk about 160 feet. He does have lower extremity weakness in general and does have reduced endurance. He is not safe to go home at the present time. Update on medical issues we are actively monitoring and managing as follows: 1. Acute gastroenteritis characterized by loose stools, fever, leukocytosis and poor appetite with abdominal pain. His bowels have slowed down. They are no longer loose. He reports no abdominal pain. His appetite is reasonably good. 2. Acute anemia secondary to dilution. Initial hemoglobin here was 11 g percent. We will repeat the blood count in the morning. He has had no evidence of bleeding. 3. Atrial fibrillation on Xarelto: Tolerating Xarelto well without evidence of bleeding. No evidence of neurologic compromise with regard to the atrial fibrillation. 4. Thrombocytopenia: His initial platelet count was low. We will repeat that tomorrow with the CBC. 5. History of syncope: Efforts are underway to reduce his risk of fall injury. He has had no spells of syncope. Exam Vital Signs: Temperature 97.5 F 05/17/17 08:00 Pulse Rate 81 05/17/17 08:00 Respiratory Rate 16 05/17/17 08:00 Blood Pressure 132/83 05/17/17 08:00 Pulse Oximetry 96 05/17/17 08:00 Height/Weight/BMI: Height 1.78 m Weight 80.4 kg Body Mass Index 25.4 - Constitutional Present: no acute distress, well nourished, well developed, cooperative Comments: He is awake and alert and asks good questions. He seems to be well oriented. Also visited with son at length. - Routine HEENT Exam Head: Present: normocephalic, atraumatic. Absent: cushingoid faces Eye: Present: EOMI. Absent: conjunctival icterus, scleral injection ENT: Present: mucous membranes moist, oropharynx clear - Routine Neck Exam Present: supple, full ROM - Routine Respiratory Exam Present: CTA bilaterally. Absent: dyspnea, decreased breath sounds, respiratory distress, rhonchi, stridor, wheezes - Routine Cardiovascular Exam Present: RRR, S1, S2. Absent: murmur, S3, S4 - Routine Abdominal Exam Present: soft, normoactive bowel sounds, non distended. Absent: tenderness - Routine Extremities Exam Present: no edema, non tender - Routine Skin Exam Present: dry, warm - Routine Neurological Exam Present: alert, oriented X3, CN II-XII intact. Absent: altered mental status, abnormal gait, facial asymmetry, tremors - Routine Psychiatric Exam Present: normal affect, normal thought process, cooperative, good insight, good judgment Results IRU - Labs Labs: Have reviewed chart dated including lab work and other providers notes. IRU A/P (1) Gastroenteritis and colitis, viral Current visit: Yes Status: Resolved His gastroenteritis appears to have resolved. He has had no further loose stools and has had no fever. We will repeat the white count tomorrow. (2) Generalized weakness Current visit: Yes Status: Acute Continues to display generalized weakness and reduced ability to perform ADLs. He is not safe to ambulate without a front-wheeled walker. At home he needs to use a cane and not a front-wheeled walker due to limitations. Has lower extremity weakness and reduced endurance for therapy. Continue to work with patient. (3) A-fib Qualifiers: Atrial fibrillation type: paroxysmal Qualified Code(s): I48.0 - Paroxysmal atrial fibrillation Current visit: No Status: Chronic His heart rhythm sounds regular at the present time. He is on Xarelto and tolerating it well. No evidence of continued bleeding. (4) Anemia Qualifiers: Anemia type: unspecified type Qualified Code(s): D64.9 - Anemia, unspecified Current visit: Yes Status: Acute Hemoglobin 11 g percent yesterday. We will repeat that tomorrow in view of the drop from 13 g percent. Does not have evidence of active bleeding. (5) Thrombocytopenia Current visit: Yes Status: Acute DVT Prophylaxis: Xarelto Resuscitation Status: Do Not Resuscitate - Course Hospital Course: Donte Bustamante MD: 05/17/17 10:07 He is progressing with therapy but is not safe to return home. Denies abdominal pain and denies new GI symptoms. He is able to take in adequate fluids to avoid dehydration. We will reassess lab work in the morning and continue to work with patient. - Interventions to Obtain Goals PT Treatment Plan: Balance/Proprioception, Functional Activities, Gait Training , Patient/Family Education, Therapeutic Exercise OT Treatment Plan: ADL (Basic Care), Balance Training, Pt./Family Education, Ther. Exercise for ADL Goals Progress/Modifications: Time spent with patient and on floor reviewing data and documentin min Barriers to dismissal: endurance, strength, Medical decision-making: He continues to be anemic. We will reassess his blood work in the morning. If the hemoglobin has dropped further we will check stool for hidden blood. Secondly, I discussed with the therapist as well as the patient and the patient's son today. The patient would like to go home sooner than later. However he has not safe to return home at the present time and requires continued therapy. He will be transitioned from a front-wheeled walker to a single-point cane as tolerated. Does have lower extremity weakness. He is medically stable to continue therapy. Please note that the patient's individual plan of care was developed and documented today, requiring review of therapy notes, medical conditions and anticipated functional recovery. This required additional medical decision making with regard to interaction of the patient's medical issues with the anticipated functional recovery. Please see separate document
--- NOTE | 2017-05-17 10:15 | IRU Plan of Care ---
[facility] Overall Plan of Care - Date Date: 05/17/17 - Patient Impairments (1) General weakness Code(s): R53.1 - Weakness Status: Acute Classification: Present on IRF Admission, IRF Tx That Should Address Diagnosis (2) Anemia Qualifiers: Anemia type: unspecified type Qualified Code(s): D64.9 - Anemia, unspecified Code(s): D64.9 - Anemia, unspecified Status: Acute Classification: Present on IRF Admission, IRF Tx That Should Address Diagnosis, Diagnosis Requiring Medical Follow Up (3) At risk for dehydration Code(s): Z91.89 - Other specified personal risk factors, not elsewhere classified Status: Resolved Classification: Present on IRF Admission, IRF Tx That Should Address Diagnosis (4) Thrombocytopenia Code(s): D69.6 - Thrombocytopenia, unspecified Status: Acute Classification: Present on IRF Admission, IRF Tx That Should Address Diagnosis, Diagnosis Requiring Medical Follow Up - Relevant Changes Relevant Changes: No Reviewed: I have reviewed the patient's information and concur with the finding and results of the pre-admission screen. Certification: I certify the patient for rehabilitation. - Medical Prognosis Medical Prognosis: Good Vital Signs: Last Vital Signs Temp 97.5 F 05/17/17 08:00 Pulse 81 05/17/17 08:00 Resp 16 05/17/17 08:00 BP 132/83 05/17/17 08:00 Pulse Ox 96 05/17/17 08:00 - Anticipated Interventions Anticipated Interventions: The patient requires inpatient IRF care for PT and OT for residuals remaining from acute gastroenteritis resulting in muscular weakness and strength deficits. An individualized overall plan of care has been developed after careful review of the patient's preadmission screening, post admission physician evaluation and assessments of all therapy disciplines and/or other pertinent clinicians involved in treating the patient. This indicates medical necessity and rehabilitation necessity have been established through a thorough review of all available medical information. Strength Deficits: Right Lower Extremity, Left Lower Extremity - Current Functional Status Failed Alternative Therapy: Yes Patient Requires: The patient requires oversight by rehabilitation physician to manage their rehabilitation treatment plan and multidisciplinary approach to care that can only be provided in an IRF and requires a multidisciplinary approach to care, provided by professional PTs, OTs, STs, rehabilitation nurses, and may require STs, dieticians, and RTS. This is not available in lesser levels of care. Physical Therapy Minutes: 90 Occupational Therapy Minutes: 90 Therapy: The patient is to receive therapy at least 5 days a week. - Anticipated LOS/Outcomes Anticipated Functional Outcome: Expected functional improvements include: -- Modified independant to independant ambulation with or without assistive device -- Modified independant to independant ADL's with or without assistive device -- Return to pre-morbid level of mobility -- Maximize level of mobility and ADL's to decrease burden on any caregiver involved with this patient's care Anticipated Length of Stay (days): 5 Anticipated DC Destination: Home, Self Care, Home Health Service Home Safety Plan: The patient will be provided with the development of a Home Safety Plan for return to a home or home-like environment and and to ensure safety post discharge. - Plan to Avoid Complications Barriers to Attaining Goals: Weakness, Endurance Plan to Avoid Complications: The patient cannot receive this care in a lesser intensive setting such as Halfway or Outpatient Therapy due to the patient requiring the following : He requires a multidisciplinary approach in view of his recent gastroneuritis with risk of dehydration. He has bilateral lower extremity weakness which is improving. He requires 24 hour rehabilitation nursing monitoring to reduce fall risk and to ensure adequate oral intake. He has anemia likely exacerbated by dilution. However this needs to be monitored medically to ensure no evidence of acute blood loss or worsening anemia.
[2017-05-17] MEDS: RIVAROXABAN 20 MG TABLET PO SCH (17:18)
[2017-05-18] MEDS: BETAXOLOL 0.5% RIGHT EYE SCH ×2 (08:31→21:38)
[2017-05-18] MEDS: REFRESH OPTIVE LEFT EYE SCH ×2 (08:32→21:39)
[2017-05-18] MEDS: DORZOLAMIDE 2% EYE DROPS 10ml RIGHT EYE SCH ×2 (08:32→21:38)
[2017-05-18] MEDS: FLECAINIDE 50 MG TABLET PO SCH ×2 (08:33→21:38)
[2017-05-18] MEDS: LOSARTAN 50 MG TABLET PO SCH (08:33)
[2017-05-18] MEDS: RIVAROXABAN 20 MG TABLET PO SCH (17:31)
[2017-05-19] MEDS: DORZOLAMIDE 2% EYE DROPS 10ml RIGHT EYE SCH ×2 (08:35→20:26)
[2017-05-19] MEDS: BETAXOLOL 0.5% RIGHT EYE SCH ×2 (08:36→20:24)
[2017-05-19] MEDS: LOSARTAN 50 MG TABLET PO SCH (08:37)
[2017-05-19] MEDS: FLECAINIDE 50 MG TABLET PO SCH ×2 (08:37→20:25)
[2017-05-19] MEDS: REFRESH OPTIVE LEFT EYE SCH ×2 (08:38→20:25)
[2017-05-19] MEDS: RIVAROXABAN 20 MG TABLET PO SCH (17:26)
[2017-05-20] MEDS: BETAXOLOL 0.5% RIGHT EYE SCH ×2 (08:16→20:52)
[2017-05-20] MEDS: FLECAINIDE 50 MG TABLET PO SCH ×2 (08:16→20:52)
[2017-05-20] MEDS: LOSARTAN 50 MG TABLET PO SCH (08:16)
[2017-05-20] MEDS: REFRESH OPTIVE LEFT EYE SCH ×2 (08:17→20:53)
[2017-05-20] MEDS: DORZOLAMIDE 2% EYE DROPS 10ml RIGHT EYE SCH ×2 (08:17→20:52)
--- NOTE | 2017-05-20 10:17 | IRU Progress Note ---
- Subjective/Serverity of Illness Date: 05/20/17 Mr. Mejias was evaluated on the inpatient rehabilitation unit. He is currently involved in physical therapy. I was able to observe therapy. He fails to fully extend the left knee. 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 Requires additional strengthening of the hamstrings. For this reason he does exhibit imbalance and loss of balance with use of cane. I was able to visit with the patient and his son today. They anticipate going home tomorrow. Ideally he would like to use a cane at home as there may not be enough room for a walker. However even at that, the son thinks they can make some adjustments. Brief therapy update: As noted he does have loss of balance with use of cane. He tends to "walk ahead" of his cane. Attempts will be made use of quad cane. Additional strengthening of hamstrings and ability to fully extend left knee will be undertaken. For occupational therapy he requires standby assistance for upper and lower body dressing. Update on medical issues we are actively monitoring and managing as follows: 1. Acute gastroenteritis characterized by loose stools, fever, leukocytosis and poor appetite with abdominal pain. He reports one episode of loose stools this weekend which has resolved. His appetite is now normal and he has had no nausea , vomiting. He is he has had no fever. 2. Acute anemia secondary to dilution. Repeat hemoglobin is unchanged at 11.5 g percent. No evidence of ongoing bleeding. This may be his baseline. 3. Atrial fibrillation on Xarelto: Continues to take Xarelto without known side effects. 4. Thrombocytopenia: Repeat platelet count now normal at 168,000. This is resolved. 5. History of syncope: No changes noted. No symptoms of syncope or presyncope. Exam Vital Signs: Temperature 97.6 F 05/20/17 08:00 Pulse Rate 67 05/20/17 08:00 Respiratory Rate 16 05/20/17 08:00 Blood Pressure 117/67 05/20/17 08:00 Pulse Oximetry 97 05/20/17 08:00 Height/Weight/BMI: Height 1.78 m Weight 80.4 kg Body Mass Index 25.4 - Constitutional Present: well nourished, well developed, cooperative Comments: He is cooperative. He is awake and alert and oriented. - Routine HEENT Exam Eye: Present: EOMI, PERRL ENT: Present: mucous membranes moist, dentition normal - Routine Neck Exam Present: supple, full ROM - Routine Respiratory Exam Present: CTA bilaterally. Absent: dyspnea, decreased breath sounds, wheezes - Routine Cardiovascular Exam Present: RRR, S1, S2. Absent: murmur Comments: He seems to continue to be in a regular rhythm. - Routine Abdominal Exam Present: soft, normoactive bowel sounds, non distended. Absent: tenderness - Routine Extremities Exam Present: no edema. Absent: full ROM (he does have full passive range of motion but finds it difficult to fully extend the left leg actively.) - Routine Back/Spine/Pelvis Exam Back/Spine: Present: kyphosis - Routine Skin Exam Present: dry, warm - Routine Neurological Exam Present: alert, oriented X3, CN II-XII intact. Absent: hearing grossly intact - Routine Psychiatric Exam Present: normal affect, cooperative Results IRU - Labs Labs: Reviewed labs, therapy notes etc. IRU A/P (1) General weakness Current visit: Yes Status: Acute Has generalized debilitation has improved. Seems to be over his gastroenteritis. Appetite is good. Only one episode of loose stools over the weekend. (2) Anemia Qualifiers: Anemia type: unspecified type Qualified Code(s): D64.9 - Anemia, unspecified Current visit: Yes Status: Acute It appears as though he may have chronic anemia. We will check iron studies. (3) At risk for dehydration Current visit: Yes Status: Resolved (4) Thrombocytopenia Current visit: Yes Status: Resolved Repeat platelet count is now normal. (5) A-fib Qualifiers: Atrial fibrillation type: paroxysmal Qualified Code(s): I48.0 - Paroxysmal atrial fibrillation Current visit: No Status: Chronic Auscultation reveals heart sounds like a regular rhythm. He remains on Xarelto. DVT Prophylaxis: Xarelto Resuscitation Status: Do Not Resuscitate - Course Hospital Course: Donte Bustamante MD: 05/17/17 10:07 He is progressing with therapy but is not safe to return home. Denies abdominal pain and denies new GI symptoms. He is able to take in adequate fluids to avoid dehydration. We will reassess lab work in the morning and continue to work with patient. 05/20/17 10:22 He would like to go home soon. Has demonstrated some loss of balance episodes with use of cane. Quad cane will be attempted. Knees work on full extension of left knee after his knee replacement in February. Medical problems appear to be stable. - Interventions to Obtain Goals PT Treatment Plan: Balance/Proprioception, Functional Activities, Gait Training , Patient/Family Education, Therapeutic Exercise OT Treatment Plan: ADL (Basic Care), Balance Training, Pt./Family Education, Ther. Exercise for ADL Goals Progress/Modifications: Time spent with patient and on floor reviewing data and documentin min Barriers to dismissal: balance, endurance Medical decision-making: Therapists are working on quad cane versus front- wheeled walker. She really seems to be safer with a front-wheeled walker but this provides challenges at home with regard to space limitations. He is demonstrating some loss of balance with use of a cane. He will require further training with regard to extension of the left knee on intentional basis. Medically he seems to be stable. His repeat hemoglobin remains low and we will check iron studies.
--- NOTE | 2017-05-20 15:06 | Progress Note ---
- Date 05/20/17 Subjective: Toi is seen today in follow up while resting in his room with at his side. He states that overall he is feeling good and feels stronger. He reports he is getting his bowel regimen on track with fiber and fruits. Vitals reviewed. Objective Vital signs: Temperature 97.6 F 05/20/17 08:00 Pulse Rate 67 05/20/17 08:00 Respiratory Rate 16 05/20/17 08:00 Blood Pressure 117/67 05/20/17 08:00 Pulse Oximetry 97 05/20/17 08:00 Height/Weight/BMI: Height 1.78 m Weight 76.8 kg Body Mass Index 25.4 - Constitutional Present: no acute distress, well nourished, well developed - Routine HEENT Exam Eye: Present: EOMI ENT: Present: mucous membranes moist, dentition normal - Routine Respiratory Exam Present: CTA bilaterally. Absent: wheezes - Routine Cardiovascular Exam Present: RRR, S1, S2, no murmur. Absent: murmur - Routine Abdominal Exam Present: soft, normoactive bowel sounds, non distended. Absent: tenderness - Routine Extremities Exam Present: full ROM, normal capillary refill - Routine Back/Spine/Pelvis Exam Back/Spine: Present: full ROM - Routine Skin Exam Present: intact, dry, warm - Routine Neurological Exam Present: alert, oriented X3, CN II-XII intact - Routine Lymphatic Exam Lymphatic: Absent: adenopathy - Routine Psychiatric Exam Present: normal affect, cooperative Results - Labs CBC & Chem 7: 05/18/17 03:51 05/16/17 04:26 Assessment and Plan (1) General weakness Current visit: Yes Status: Acute (2) Anemia Current visit: Yes Status: Acute (3) At risk for dehydration Current visit: Yes Status: Resolved Assessment and Plan: Impression General weakness Post polio syndrome Risk for dehydration Recent gastroenteritis Anemia Atrial fibrillation Thrombocytopenia History of syncope and falls Chronic anticoagulation HTN Plan Overall appears to be medically stable and doing well. Remains on Xarelto for anticoagulation given paroxysmal atrial fibrillation monitor for evidence of acute GI bleeding. Monitor blood pressure, continue on losartan 50 milligrams daily. Iron studies pending Encourage work with PT and OT for ongoing strengthening - Physician Narrative Narrative: Date: 05/20/17 Time: 1502 Hospital Course Summary Disclaimer: The visit summary below is not to be considered part of the above Progress Note. Hospital Course: 05/16/17 Impression General weakness Risk for dehydration Recent gastroenteritis Anemia Atrial fibrillation Thrombocytopenia History of syncope and falls Chronic anticoagulation Post polio syndrome HTN Plan Agree with admission to the inpatient rehabilitation unit under the care of Dr. Bustamante for ongoing therapy, improve strength and function. Given recent gastroenteritis and need for IV hydration acutely patient is at risk for continued dehydration. We'll continue to monitor routine labs, given mild anemia and thrombocytopenia. Patient is chronically on Xarelto for anticoagulation given. Paroxysmal atrial fibrillation monitor Her for evidence of acute GI bleeding. Monitor blood pressure, continue on losartan 50 milligrams daily. Encourage work with PT and OT for ongoing strengthening The hospitalists services will continue to follow patient during his stay on IRU At time of discharge medical care is to return to PCP Dr Vegas
[2017-05-20] MEDS: RIVAROXABAN 20 MG TABLET PO SCH (17:40)
[2017-05-20 22:35] VITALS: O2SAT 94
[2017-05-21 09:05] VITALS: BP 108/65; PULSE 77; RESP 18; TEMP 97.9
[2017-05-21] MEDS: LOSARTAN 50 MG TABLET PO SCH (09:54)
[2017-05-21] MEDS: FLECAINIDE 50 MG TABLET PO SCH (09:54)
[2017-05-21] MEDS: DORZOLAMIDE 2% EYE DROPS 10ml RIGHT EYE SCH (09:55)
[2017-05-21] MEDS: BETAXOLOL 0.5% RIGHT EYE SCH (09:55)
[2017-05-21] MEDS: REFRESH OPTIVE LEFT EYE SCH (09:55)
--- NOTE | 2017-05-21 10:40 | IRU Progress Note ---
- Subjective/Serverity of Illness Date: 05/21/17 Mr. Mejias was evaluated in his room on the inpatient rehabilitation unit. He continues to be very cooperative with therapy. Unfortunately he does display some loss of balance at times when he uses a straight cane or a quad cane. Therefore it is highly recommended that he use a walker at home. Family has also been advised. From a medical standpoint he feels much stronger. His appetite is good. His bowels are fairly regular at the present time although in general he struggles with constipation. No blood is been noted. He is tolerating Xarelto without difficulty. No evidence of active bleeding. A multidisciplinary team conference will be held around 1 PM today with the patient and his family for further recommendations. Exam Vital Signs: Temperature 97.9 F 05/21/17 08:00 Pulse Rate 77 05/21/17 08:00 Respiratory Rate 18 05/21/17 08:00 Blood Pressure 108/65 05/21/17 08:00 Pulse Oximetry 94 05/21/17 08:00 Height/Weight/BMI: Height 1.78 m Weight 76.8 kg Body Mass Index 25.4 - Constitutional Present: no acute distress, well nourished, well developed - Routine HEENT Exam Head: Present: normocephalic Eye: Present: EOMI ENT: Present: mucous membranes moist, dentition normal - Routine Neck Exam Present: supple, full ROM - Routine Respiratory Exam Present: CTA bilaterally. Absent: dyspnea, decreased breath sounds, respiratory distress, rhonchi, wheezes - Routine Cardiovascular Exam Present: RRR, S1, S2. Absent: murmur Comments: Once again he sounds fairly regular today. He does have history of atrial fibrillation. - Routine Abdominal Exam Present: soft, normoactive bowel sounds, non distended. Absent: tenderness, organomegaly, mass - Routine Extremities Exam Present: no edema. Absent: cyanosis, clubbing - Routine Back/Spine/Pelvis Exam Back/Spine: Present: kyphosis - Routine Skin Exam Present: dry, warm - Routine Neurological Exam Present: alert, oriented X3, CN II-XII intact - Routine Psychiatric Exam Present: normal affect, cooperative, good insight, good judgment IRU A/P (1) General weakness Current visit: Yes Status: Acute Has generalized weakness is improved. He has more energy. He is eating and drinking adequately. His bowels are improved. He has made progress with therapy although continues to have difficulty completely extending the left knee since his surgery. This is impeding his functional improvement with regard to ambulation. (2) Anemia Qualifiers: Anemia type: unspecified type Qualified Code(s): D64.9 - Anemia, unspecified Current visit: Yes Status: Acute (3) At risk for dehydration Current visit: Yes Status: Resolved (4) Thrombocytopenia Current visit: Yes Status: Resolved (5) A-fib Qualifiers: Atrial fibrillation type: paroxysmal Qualified Code(s): I48.0 - Paroxysmal atrial fibrillation Current visit: No Status: Chronic DVT Prophylaxis: Xarelto Resuscitation Status: Do Not Resuscitate - Course Hospital Course: Donte Bustamante MD: 05/17/17 10:07 He is progressing with therapy but is not safe to return home. Denies abdominal pain and denies new GI symptoms. He is able to take in adequate fluids to avoid dehydration. We will reassess lab work in the morning and continue to work with patient. 05/20/17 10:22 He would like to go home soon. Has demonstrated some loss of balance episodes with use of cane. Quad cane will be attempted. Knees work on full extension of left knee after his knee replacement in February. Medical problems appear to be stable. 05/21/17 10:39 Working on improving extension of left knee. He is not safe with cane or quad cane and it is recommended he use a walker at all times. Multi-disciplinary conference this noon with patient and family for further recommendations. - Interventions to Obtain Goals PT Treatment Plan: Balance/Proprioception, Functional Activities, Gait Training , Patient/Family Education, Therapeutic Exercise OT Treatment Plan: ADL (Basic Care), Balance Training, Pt./Family Education, Ther. Exercise for ADL
--- NOTE | 2017-05-21 13:48 | IRU Team Meeting ---
IRU Team Meeting - Nursing Bladder Assistive Devices Utilized:: Absorbent Pad Bladder Management Level of Assist: Modified Independent Bladder Frequency of Accidents: No accidents Bowel Assistive Devices Utilized:: Absorbent Pad Bowel Management Level of Assist: Modified Independent Bowel Frequency of Accidents: No accidents Vital Signs: Vital Signs - 24 hr 05/20/17 16:00 05/20/17 22:34 05/21/17 08:00 Temperature 97.9 F 98.5 F 97.9 F Pulse Rate 67 75 77 Respiratory Rate 14 16 18 Blood Pressure 111/61 122/68 108/65 Pulse Oximetry 91 94 94 Current Medications: Betaxolol HCl (Betoptic) 1 drops RIGHT EYE BID [facility] Last Admin: 05/21/17 09:55 Dose: 1 drops Dorzolamide HCl (Trusopt) 1 drops RIGHT EYE BID [facility] Last Admin: 05/21/17 09:55 Dose: 1 drops Flecainide Acetate (Tambocor) 50 mg PO BID [facility] Last Admin: 05/21/17 09:54 Dose: 50 mg Losartan Potassium (Cozaar) 50 mg PO DAILY [facility] Last Admin: 05/21/17 09:54 Dose: 50 mg Pom Refresh Optive (Gel Drops) 1 LEFT EYE BID [facility] Last Admin: 05/21/17 09:55 Dose: 1 Rivaroxaban (Xarelto) 20 mg PO WS [facility] Last Admin: 05/20/17 17:40 Dose: 20 mg Current Medical Issues: Atrial fibrillation on anticoagulation, low platelets, resolved, weakness. Comments: I certify that I personally led the interdisciplinary team meeting and agree with comments, barriers and goals indicated. Team meeting was held in the patient's room with the patient and the following family members present: Patient's Medically the patient is doing well. His appetite is good. His bowels tend toward constipation. He has had no further diarrhea. He denies abdominal pain. His strength level is improved as well. - Physical Therapy Bed, Chair, Wheelchair Transfer Assist: Independent Ambulation Ability: Modified Independent Ambulation Distance: 400 Stair Climbing Ability: Modified Independent Number of Steps Climbed: 16 Car Transfer Ability: Stand By Assist/Supervision Comments: Attempts were made at use of quad cane. However he has loss of balance with the quad cane and for that reason requires a front-wheeled walker. Recommend outpatient physical therapy to increase strength of extension of left knee since his surgery in February. Patient has done well with physical therapy and is modified independent for most activities. He is safe to return home. - Occupational Therapy Eating Ability: Independent Grooming Ability: Independent Bathing Ability: Stand By Assist/Supervision Upper Body Dressing Ability: Modified Independent Lower Body Dressing Ability: Modified Independent Tub Transfer Assist: Stand By Assist/Supervision Toileting Assist: Modified Independent Toilet Transfer Assist: Modified Independent Comments: Patient has improved nicely with occupational therapy. He has met goals. Outpatient occupational therapy not recommended at this time. He is safe to return home. - Goals Physical Therapy Goals: 05/21/17 Goals: 1.) Discharge Planning Occupational Therapy Goals: OT goals 05/21/17: 1.) D/C planning. - Barriers to Discharge Barriers to Attaining Goals: Balance, Endurance - Care Plan Anticipated Length of Stay (days): 0 Anticipated DC Destination: Home, Self Care I have led this team conference and agree with the plan. Interventions/Goals: Outpatient physical therapy is recommended to improve extension strength of the left knee as well as to improve safety with ambulation, avoid imbalance issues and reduce fall risk.
--- NOTE | 2017-05-21 14:34 | Discharge Summary ---
Discharge Information Date of admission: 05/15/17 12:00 Anticipated date of discharge: 05/21/17 Attending Physician: Donte Bustamante MD Primary care physician: Adam Vegas MD Consults: 05/15/17 12:41 Physician Consult [CONS] Routine Consulting Provider: Lauren Naranjo Reason For Exam: medical management Ordering Provider has Notified Desk Operator: Yes - Discharge Diagnosis (1) General weakness Status: Acute (2) Anemia Status: Acute (3) At risk for dehydration Status: Resolved (4) Thrombocytopenia Status: Resolved (5) A-fib Status: Chronic 1. Generalized debility after viral gastroenteritis 2. Anemia with heme positive stools 3. Atrial fibrillation on Xarelto 4. Imbalance 5. Thrombocytopenia- resolved - Laboratory Labs: 05/18/17 03:51 05/16/17 04:26 History of Present Illness HPI: Mr. Mejias developed multiple loose stools at home for 2-3 days prior to admission. He developed significant weakness, loss of appetite and fever of 101 . He was evaluated in the emergency department and admitted to acute care as an outpatient. He was given IV fluids. He was stabilized while on acute care as an outpatient. He was noted to have multiple functional deficits and it was recommended that the patient undergo acute inpatient rehabilitation. He was felt to be at risk for further dehydration, recurrence of his diarrhea, as well as the fact that he drop his hemoglobin from 13 down to 11 g percent while on Xarelto. He was seen in the emergency department and admitted to acute care as an outpatient on 05/14/2017. He was transferred to acute inpatient rehabilitation on 05/15/2017. Hospital Course This is a general summary of the patient's hospital course. For more details refer to the complete medical record. Mr. Mejias continued to have occasional loose stools but ultimately this was resolved. He did not have further evidence of dehydration. His hemoglobin remained stable at 11 g percent. Iron studies were drawn but are pending at the time of this dictation. In addition we did check his stool for occult blood which was positive. Further evaluation of this is deferred to his primary care physician Dr. Vegas. While on acute inpatient rehabilitation he was evaluated and treated by occupational therapy. Upon admission he was able to eat independently which was the same as dismissal. Grooming was initially standby assist and ultimately modified independent level. Bathing ability was initially contact-guard assistance and ultimately modified independent level. Upper body dressing was initially standby assistance and ultimately modified independent. Lower body dressing was initially minimal assistance and ultimately modified independent. Toileting assistance was initially standby and ultimately modified independent. Toilet transfer assist was initially contact-guard and alternately modified independent. Bed/chair/wheelchair transfers were initially contact-guard and ultimately modified independent. He was seen by physical therapy. Bed/chair/wheelchair transfers were initially requiring moderate assistance. Ultimately these required modified independent level of functioning. Toilet assist was initially independent and was ultimately independent as well. Toilet transfer assist was able to be performed with modified independent level of functioning upon admission and dismissal. Car transfers were initially contact-guard and ultimately standby assistance. Ambulating ability was initially contact-guard assistance at 165 feet. At one point during his stay on rehabilitation he is able to ambulate over 1000 feet at modified independent level. Attempts were made at using a quad cane because of his living situation. However he was unstable and demonstrated loss of balance with that. It was noted that he had significant weakness upon extension of the left leg (he had undergone left total knee replacement in February 2017). For this reason it is recommended that he use a front-wheeled walker and that he undergo further outpatient physical therapy to strengthen the quadriceps and to improve his ambulatory ability and safety. He was able to climb 12 steps initially with contact-guard assistance and ultimately 16 steps at standby assistance. He was followed by the hospitalist service as well. It is noted that his hemoglobin remained stable although iron studies are pending. In addition he does have stool positive for heme. This will need to be followed up as an outpatient. Hospital course: 05/16/17 Impression General weakness Risk for dehydration Recent gastroenteritis Anemia Atrial fibrillation Thrombocytopenia History of syncope and falls Chronic anticoagulation Post polio syndrome HTN Plan Agree with admission to the inpatient rehabilitation unit under the care of Dr. Bustamante for ongoing therapy, improve strength and function. Given recent gastroenteritis and need for IV hydration acutely patient is at risk for continued dehydration. We'll continue to monitor routine labs, given mild anemia and thrombocytopenia. Patient is chronically on Xarelto for anticoagulation given. Paroxysmal atrial fibrillation monitor Her for evidence of acute GI bleeding. Monitor blood pressure, continue on losartan 50 milligrams daily. Encourage work with PT and OT for ongoing strengthening The hospitalists services will continue to follow patient during his stay on IRU At time of discharge medical care is to return to PCP Dr Vegas Time spent with patient: 25 - 35 minutes Discharge Plan - Med Rec/Dispo Referrals/Follow Up: Adam Vegas MD [Family Provider] - Additional Instructions: OUTPATIENT PHYSICAL THERAPY APPOINTMENT 05/22/17 AT 8AM. Prescriptions: Continue Cholecalciferol (Vitamin D3) [Vitamin D3] 1,000 unit PO DAILY Arginine [l-Arginine] 500 mg PO DAILY Ubidecarenone [Co Q-10] 200 mg PO DAILY Saw Tripp 160 mg PO DAILY Multivitamin [One Daily] 1 tab PO DAILY [place]-3/Dha/Epa/Fish Oil [Fish Oil 1,360 mg Softgel] 1,360 mg PO DAILY Calcium Carb/D3/Magnesium/Zinc [Bvplfba-Mgc-Hbhu-Vit D Tablet] 1 tab PO DAILY Dorzolamide Eye Drops [Trusopt] 1 drop RIGHT EYE BID Betaxolol 0.5% Eye Drops [Betoptic] 1 drop RIGHT EYE BID Rivaroxaban [Xarelto] 20 mg PO WS Losartan Potassium [Cozaar] 50 mg PO DAILY Flecainide [Tambocor] 50 mg PO BID Opti Gold 1 tab PO DAILY Ferrous Sulfate [Iron] 325 mg PO DAILY Polyvinyl Alcohol/Povidone O/S [Refresh Classic] 1 drop LEFT EYE BID - Disposition 01 Discharged Home, Self-Care
--- NOTE | 2017-05-21 14:38 | Letter to Referring Physician ---
Dear Dr. Vegas, This is a brief note to bring you up-to-date on the status of Toi Mejias and his stay on the acute inpatient rehabilitation unit at [facility]. As you are likely aware, this patient was admitted as an outpatient to [facility] on 05/14/17 for fever, diarrhea and weakness with leukocytosis, felt to be secondary to a viral gastroenteritis. The patient was stabilized while in the hospital and admitted to inpatient rehabilitation unit at [facility] on May 15, 2017. While on inpatient rehabilitation, this patient was seen by occupational therapy and physical therapy and improved overall in their functional ability. We also monitored and managed the patient's atrial fib, loose stools and anemia while on Acute Rehab. Please see a copy of the history and physical examination as well as discharge summary enclosed with this letter for further details. Please note that his initial hemoglobin was 13 g percent, dropping to 11 g percent after rehydration. This remained stable on acute rehabilitation. Iron studies have been drawn but are pending at the time of this dictation. Please also note that stool was heme positive and that this may require further evaluation. Attempts were made at draining him on use of a quad cane. However he was unstable with that and it is recommended that he use a front-wheeled walker. We feel as though he needs to increase extension of his left knee since his surgery in February in order to be able to ambulate in a safe manner. He is dismissed home at this time and he will do outpatient physical therapy in this regard. Thank you for allowing us to be involved in this nice patient's care. Please contact me directly should you have any questions regarding their stay on the inpatient rehabilitation unit. Sincerely, Donte Bustamante M.D.
== END 2017-05-21 15:20 | disposition home or self-care (01) | DRG 946 ==
PROVIDERS: ADMIT Internal Medicine; ATTEND Internal Medicine

== ENCOUNTER 2017-07-05 14:06 | Observation (INO) ==
[2017-07-05 15:07] VITALS: BMI 24.5
[2017-07-05] MEDS ORDERED: NS 1,000 ML IV SCH (15:45)
--- NOTE | 2017-07-05 15:53 | History & Physical Report ---
History of Present Illness Date: 07/05/17 Chief complaint: influenza B and pancytopenia HPI: this is a pleasant 87yo male known to our clinic who usually follows with Dr. Vegas of family medicine here at [facility]. he has a history of atrial fibrillation and hypertension and was recently hospitalized here for a fall with some other surrounding issues about 2 months ago. I will direct you to the EMR here for any further questions on that. he has had moderately productive cough and clear rhinorrhea on and off for about one week. he has had modest amounts of generalized fatigue, generalized weakness and body aches but nothing too profound. he hasn't altogether felt that systemically unwell. he had a low grade fever of about 100 to 101 about 5 to 7 days ago but has been afebrile since. some mild chills as well. he also notes diarrhea on-and-off for the past 4 to 6 weeks too. no other GI symptoms with this. it's watery brown and goes for some form to just watery brown diarrhea. this can happen anywhere from once or twice daily to 5 times daily. no bloody/black stools or mucous in stools. this issue has been somewhat worse within the last 2 weeks. he was seen for these issues today in clinic. a cbc today was notable for a wbc of 1.7, significant neutropenia, a hgb of 12.3 and platelets of 94,000. a cmp was generally unremarkable. lactic acid and procalcitonin were unremarkable. patient's respiratory PCR panel came back positive for influenza B and his stool pcr was negative. patient's CXR demonstrated non-specific pulmonary nodules but was otherwise non-acute. CRP was only mildly elevated at about 12. patient's vitals were stable and he was afebrile. he was somewhat clinically dehydration. given patient's comorbidities and age as well as the positive influenza B and pancytopenia, it was opted to admit patient to [facility] inpatient for further workup and therapy. no headaches, stroke symptoms, focal neurologic deficits, photophobia, neck rigidity, falls, trauma, injuries. 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 no syncope, dizziness, near-synocpe, ear pain, sinus pain, sore throat, runny nose. no acute vision issues, face swelling, periorbital edema. no swollen lymph nodes anywhere that he's aware of. no skin changes or new rashes or skin/soft tissue infection symptoms. no chest pain, SOA, orthopnea, PND, new edema, leg asymmetry, palpitations, hemoptysis. some clear to yellow sputum production noted. no changes in exertional tolerance. no boggy/inflammed/painful/swollen focal joints or muscle groups. no recent travel, camping, sick exposures, [place] exposures, outdoor exposures. no abdominal pain, GERD symptoms, nausea, vomiting, hematemesis, coffee ground emesis, melena, BRBPR, constipation. no bloody/black stools or mucous in stools. ROS negative for food borne illness or risk factors thereof. no mood changes, encephalopathic symptoms, delerium symptoms, changes in cognition, psychotic symptoms, depression symptoms. no dysuria, hematuria, urinary frequency, flank pain, nocturia, urinary/bowel incontinance, urinary retention, polyuria, oliguria, changes in urinary strem of late. he has been taking amoxicillin and following with the dentist the past couple of weeks for dental pain and what sounds like a periapical abscess but he's been on amoxicillin for this for several days now and he says this has resolved. ROS and physical exam today negative for acute dental issues/dental abscesses/dental pustulance/trismus/deep space neck infection/retropharyngeal abscess/drooling/neck masses/face masses/osteomyeltitis at this time. present for most of encounter today. see above and below for other review of systems. no new issues otherwise at this time. Review of Systems - Constitutional Constitutional: Present: as per HPI - EENMT Eyes: Present: as per HPI Ears: Present: as per HPI Balance: Present: as per HPI Nose: Present: as per HPI Mouth/Throat: Present: as per HPI - Cardiovascular Cardiovascular: Present: as per HPI Vascular: Present: see HPI - Respiratory Respiratory: Present: as per HPI - Gastrointestinal Gastrointestinal: Present: as per HPI - Genitourinary Genitourinary: Present: as per HPI - Musculoskeletal Musculoskeletal: Present: as per HPI - Integumentary/Breasts Integumentary: Present: as per HPI - Neurological Neurological: Present: as per HPI - Psychiatric Psychiatric: Present: as per HPI - Endocrine Endocrine: Present: as per HPI - Hematologic/Lymphatic Hematologic/Lymphatic: Present: as per HPI - Allergic/Immunologic Allergic/Immunologic: Present: as per HPI Allergic/Immunologic: see the above for any allergies and ADR's. Past Medical History Patient Stated Medical History Syncope Yes: when over worked or stressed Transient Ischemic Attacks ( Yes TIA) Cataracts Yes: Bilateral Glaucoma Yes Angina Yes Hypertension Yes Other Cardiology Yes: afib Constipation Yes Hiatal Hernia Yes Hx Incontinence Yes Hx Urinary Tract Infection Yes Other troubles urinating at times, enlarged prostate Other Hematologic Yes: Daily Xarelto Other Musculoskeletal Yes: Polio Chemotherapy Yes: skin cancer removed Other Yes: skin cancer removed Clinic Medical History (Last Reviewed 02/20/17 @ 12:24 by WESLEY [place]) Polio (Acute Medical) TIA (transient ischemic attack) (Acute Medical) Stroke (Acute Medical) Medical History Updates: -history of TIA's. -syncopeal spells of uncertain etiology. -atrial fibrillation. -hypertension. -post polio syndrome. - osteoarthritis. -glaucoma. 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 -right ankle ORIF 2015. -colonoscopy 2012. - hernia repair. -tonsillectomy Family History: see below. Family History Updates: -father had lung cancer. -mother had vericose veins, stroke. -paternal grandfather had CAD. -siblings have vericose veins - Social History Smoking status: Never smoker Social history: -no smoking. no tobacco history. -no significant alcohol use -no illicit substance use. -lives at home with . Medications Home Medications Medication Instructions Recorded Confirmed Type Arginine [l-Arginine] 500 mg PO DAILY 05/13/17 07/05/17 History Betaxolol 0.5% Eye Drops [Betoptic] 1 drop RIGHT EYE BID 05/13/17 07/05/17 History Calcium Carb/D3/Magnesium/Zinc 1 tab PO DAILY 05/13/17 07/05/17 History [Cocpjzk-Egq-Nleg-Vit D Tablet] Cholecalciferol (Vitamin D3) 1,000 unit PO DAILY 05/13/17 07/05/17 History [Vitamin D3] Dorzolamide Eye Drops [Trusopt] 1 drop RIGHT EYE BID 05/13/17 07/05/17 History Flecainide [Tambocor] 50 mg PO BID 05/13/17 07/05/17 History Losartan Potassium [Cozaar] 50 mg PO DAILY 05/13/17 07/05/17 History Multivitamin [One Daily] 1 tab PO DAILY 05/13/17 07/05/17 History [place]-3/Dha/Epa/Fish Oil [Fish Oil 1,360 mg PO DAILY 05/13/17 07/05/17 History 1,360 mg Softgel] Opti Gold 1 tab PO DAILY 05/13/17 06/12/17 History Polyvinyl Alcohol/Povidone O/S 1 drop LEFT EYE BID 05/13/17 07/05/17 History [Refresh Classic] Rivaroxaban [Xarelto] 20 mg PO WS 05/13/17 07/05/17 History Saw [place] 160 mg PO DAILY 05/13/17 07/05/17 History Ubidecarenone [Co Q-10] 200 mg PO DAILY 05/13/17 07/05/17 History iron, carbonyl 25 mg tablet 25 mg PO DAILY tab 06/12/17 07/05/17 History Amoxicillin 07/05/17 History Betaxolol 0.5% Eye Drops [Betoptic] 1 drop EACH EYE BID 07/05/17 07/05/17 History Calcium Carb, Cit/Magnesium Ox 500 mg PO AM 07/05/17 07/05/17 History Carboxymethylcellulose O/S 1 drop LEFT EYE BID MDD as needed 07/05/17 07/05/17 History [Refresh Celluvisc] [place]-3/Dha/Epa/Fish Oil [Fish Oil 1,360 mg PO DAILY 07/05/17 07/05/17 History 1,360 mg Softgel] Trusopt 1 drop EACH EYE BID 07/05/17 07/05/17 History Allergies Allergy/AdvReac Type Severity Reaction Status Date / Time No Known Drug Allergies Allergy Unknown Verified 06/12/17 13:10 Exam Vital Signs: Temperature 97.9 F 07/05/17 15:05 Pulse Rate 58 L 07/05/17 15:05 Respiratory Rate 20 07/05/17 15:05 Blood Pressure 167/87 H 07/05/17 15:05 Pulse Oximetry 98 07/05/17 15:05 Height/Weight/BMI: Height 1.78 m Weight 77.5 kg Body Mass Index 24.5 - Constitutional Present: no acute distress, thin, cooperative. Absent: diaphoretic, disheveled , combative, agitated, somnolent, obtunded - Routine HEENT Exam Head: Present: normocephalic, atraumatic. Absent: facial swelling Eye: Absent: scleral injection, periorbital ecchymosis, periorbital swelling, periorbital tenderness, exophthalmos, proptosis ENT: Present: mucous membranes dry (mildly dry.), oropharynx clear, nares patent , external ear normal, TM's clear bilaterally. Absent: sinus tenderness, septal deviation Comments: no mastoid tenderness b/l at this time. see clinic note from today for further details. see above for oral and dental exam. - Routine Neck Exam Present: supple, full ROM, trachea midline. Absent: JVD, lymphadenopathy (in head/neck/supraclavicular serna b/l at this time. see clinic notes for details. ), thyromegaly, tenderness, swelling, tracheal deviation, trauma, meningismus Comments: no photophobia. no clinical evidence of meningitis or encephalopathy at this time. - Routine Chest/Breast/Axilla Exam Chest wall: Absent: tenderness - Routine Respiratory Exam Present: CTA bilaterally. Absent: accessory muscle use, patient mechanically ventilated, dyspnea, decreased breath sounds, prolonged expiratory phase, rales , respiratory distress, rhonchi, stridor, wheezes, crackles, distant breath sounds, diminished air movement Comments: lung sounds heard in all lung serna b/l at this time. all findings above bilateral unless otherwise noted. - Routine Cardiovascular Exam Present: RRR. Absent: bradycardia, tachycardia, irregularly irregular, JVD Comments: no new murmurs. legs symmetrical and compartments soft b/l in LE's at this time. clinically well perfused in all 4 extremities b/l at this time. no boggy /painful/swollen/inflammed joints b/l at this time X4 extremities. no clinical evidence of heart failure at this time. - Routine Abdominal Exam Present: soft (X4.), normoactive bowel sounds (X4.), non distended (X4.), non tender (X4.). Absent: tenderness (X4.), distended (X4.), rebound, guarding, firm, rigid, organomegaly, mass Comments: no ascites or jaundice. - Routine Exam Comments: no tenderness over bladder area. no flank pain b/l at this time. no clinical evidence of upper or lower UTI at this time. - Routine Extremities Exam Present: pulses intact. Absent: cyanosis, joint swelling, pallor, extremity cold to touch - Routine Back/Spine/Pelvis Exam Comments: no back issues or pain. no clinical evidence of acute, chronic or worsening neurovascular or musculoskeletal compromise b/l in extremities b/l X4 at this time. - Routine Skin Exam Present: intact Comments: no clinical evidence of skin/soft tissue infection at this time. unremarkable to uncovered areas at this time. - Routine Neurological Exam Present: alert, oriented X3 affect and cognition normal and appropriate. no photophobia or clinical evidence of meningitis or encephalopathy at this time. no clinical evidence of delerium, benja, altered mentation, confusion, obtundation, psychosis, depression, anxiety at this time. - Routine Psychiatric Exam Present: normal affect, normal thought process, cooperative, good insight, good judgment. Absent: auditory hallucinations, visual hallucinations, tactile hallucinations, depressed, anxious, agitated, paranoid, manic Comments: see above as well. Assessment and Plan Assessment and Plan: acute pancytopenia and afebrile severe neutropenia, likely from influenza B chronic diarrhea over last 4 to 6 weeks with likely viral gastroenteritis acute bronchitis from influenza B non specific pulmonary nodules on CXR today periapical abscesses, resolved. mild clinical dehydration atrial fibrillation, chronically anticoagulated HTN -admit to inpatient, routine vitals with call parameters, telemetry, oxygen as needed, I's and O's, daily weights, neutropenic precautions, cardiac diet. -add TSH, blood cultures X2, BNP, magnesium, phos, urine for legionella, UA , urine for strep pneumonia, mycoplasma serologies, troponin, CK now. see above HPI for other testing done and results from this stay. -non contrast CT chest now -check EKG now. -cbc and cmp in the AM. -start PO tamiflu, gentle IV hydration with normal saline, duonebs scheduled , tessalon perles scheduled. continue home calcium/vitamin D, multivitamin, losartan, Co-Q 10, flecainide, xarelto. -hold home fish oil and other over the counter supplaments. will have Dr. Snow of heme/onc review meds and other for other possible causes of neutropenia but influenza B likely the cause here. will restart PO amoxicillin he was finishing for his dental issues noted above and these are doing well right now. -further workup pending the above. patient not febrile and no indication from other testing of other infection on top of the influenza. no indication for further abx at this time. would consider cefipime as first line option should patient become febrile though and would need to d/c amoxicillin before. discussed this and rest of case with Dr. Snow who agrees. glaucoma dry eyes -continue home betopic, trusopot and refresh eye drops all other chronic medical issues stable and no other changes to plan of care at this time. ppx -continue home xarelto for DVT ppx if ok withi Dr. Snow. -PO diet as noted above for GI ppx. -DNR/DNI. patient consulted about indications for and details of cardiopulmonary rescuscitation including chest compressions, intubation, meds to restart heart/achieve appropriate rhythm , defibrillation. patient states he wants none of this. we will abide by his wishes in this regard. -dispo heavily dependent on that noted above. DVT Prophylaxis: Xarelto (continue home PO xarelto) - Time spent with patient Time with patient PN: 50 minutes Sepsis Assessment - Evaluation SIRS Criteria: WBC < 4,000 Severe Sepsis: none seen
[2017-07-05] MEDS ORDERED: REFRESH CLASSIC Eye Drops 0.4ml EACH EYE PRN (16:41)
[2017-07-05] MEDS: ALBUTEROL/IPRATROPIUM 2.5mg-0.5mg/3ml NEB AEROSOL SCH (19:51)
[2017-07-05] MEDS: BENZONATATE 200 MG CAPSULE PO SCH (22:19)
[2017-07-05] MEDS: BETAXOLOL 0.25% RIGHT EYE SCH (22:21)
[2017-07-05] MEDS: EYE RIGHT EYE SCH (22:21)
[2017-07-05] MEDS: DORZOLAMIDE 2% EYE DROPS 10ml RIGHT EYE SCH (22:23)
[2017-07-05] MEDS: CALCIUM 600 + VIT D 400 TABLET PO SCH (22:51)
[2017-07-05] MEDS: FLECAINIDE 50 MG TABLET PO SCH (22:52)
[2017-07-05] MEDS: AMOXICILLIN 875 MG TABLET PO SCH (22:52)
[2017-07-06] MEDS: ALBUTEROL/IPRATROPIUM 2.5mg-0.5mg/3ml NEB AEROSOL SCH ×4 (06:38→19:11)
--- NOTE | 2017-07-06 09:20 | History & Physical Report ---
Oncology HPI Chief complaint: Pancytopenia History of present illness: --Late June 2017: Cough, Fever. Seen by Dr. Ferrari 07/05/17 with finding of influence of the positivity, pancytopenia with decreasing WBC hemoglobin and platelets since May and chest x-ray showing lung nodules. CT scan shows multiple pleural-based peripheral infiltrates that have fluffy borders and some have more solid nodule appearance. His past medical history is remarkable for polio with postpolio syndrome, atrial fibrillation, hospitalized May 2017 with diarrhea and falls. At that time he had a normal CBC with WBC on admission on 05/13/17 of 11.4 it declined to 4.2 on discharge on 05/18/17. WBC was low at 1.7 on 07/05/17. Hemoglobin has been stable in the 11 5-12 3 range. Platelet count has been decreasing with a value of 94 on 07/06/17, 94 on 07/05/17 168 on 05/18/17 and 125 on 05/14/17. He also has significant arthritis and has visual decline with MRI of the orbits done on 06/10/17 without etiology being found. Review of Systems - Constitutional Constitutional: Present: chills, fever(s), weakness. Absent: night sweats - EENMT Eyes: Present: blurry vision, other (decreased vision being evaluated by [facility] has to use magnifying glass able to see) Ears: Present: other (hearing loss requiring hearing aids) Nose: Absent: pain, nosebleeds Mouth/Throat: Absent: sore throat, sores, ulcers - Cardiovascular Cardiovascular: Absent: chest pain, palpitations Rhythm: Present: abnormal rhythm - Respiratory Respiratory: Present: cough, hemoptysis (unknown as he does not pay attention to the production) - Gastrointestinal Gastrointestinal: Present: diarrhea (prior to admission. No diarrhea since). Absent: abdominal pain, nausea - Genitourinary Genitourinary: Absent: dysuria, hematuria - Musculoskeletal Musculoskeletal: Present: arthralgias, muscle weakness - Integumentary/Breasts Integumentary: Absent: alopecia, lesions - Neurological Neurological: Present: other (TIAs in the past). Absent: abnormal movements, convulsions, headache(s) - Hematologic/Lymphatic Hematologic/Lymphatic: Present: easy bleeding, easy bruising. Absent: lymphadenopathy [facility] Patient Stated Medical History Syncope Yes: when over worked or stressed Transient Ischemic Attacks ( Yes TIA) Cataracts Yes: Bilateral Glaucoma Yes Angina Yes Hypertension Yes Other Cardiology Yes: afib Constipation Yes Hiatal Hernia Yes Hx Incontinence Yes Hx Urinary Tract Infection Yes Other troubles urinating at times, enlarged prostate Other Hematologic Yes: Daily Xarelto Other Musculoskeletal Yes: Polio Chemotherapy Yes: skin cancer removed Other Yes: skin cancer removed Clinic Medical History (Last Reviewed 02/20/17 @ 12:24 by WESLEY [place]) Polio (Acute Medical) TIA (transient ischemic attack) (Acute Medical) Stroke (Acute Medical) Medical History Updates: -history of TIA's. -syncopeal spells of uncertain etiology. -atrial fibrillation. -hypertension. -post polio syndrome. - osteoarthritis. -glaucoma. 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 -right ankle ORIF 2015. -colonoscopy 2012. - hernia repair. -tonsillectomy Family History: Family History Father Father of lung cancer at age 89 Mother Stroke at age 92 Twins sisters still living at age approximately 84. 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) Medications Home Medications Medication Instructions Recorded Confirmed Type Arginine [l-Arginine] 500 mg PO DAILY 05/13/17 07/05/17 History Betaxolol 0.5% Eye Drops [Betoptic] 1 drop RIGHT EYE BID 05/13/17 07/05/17 History Calcium Carb/D3/Magnesium/Zinc 1 tab PO DAILY 05/13/17 07/05/17 History [Ozypvaj-Jqa-Xdsf-Vit D Tablet] Cholecalciferol (Vitamin D3) 1,000 unit PO DAILY 05/13/17 07/05/17 History [Vitamin D3] Dorzolamide Eye Drops [Trusopt] 1 drop RIGHT EYE BID 05/13/17 07/05/17 History Flecainide [Tambocor] 50 mg PO BID 05/13/17 07/05/17 History Losartan Potassium [Cozaar] 50 mg PO DAILY 05/13/17 07/05/17 History Multivitamin [One Daily] 1 tab PO DAILY 05/13/17 07/05/17 History [place]-3/Dha/Epa/Fish Oil [Fish Oil 1,360 mg PO DAILY 05/13/17 07/05/17 History 1,360 mg Softgel] Opti Gold 1 tab PO DAILY 05/13/17 06/12/17 History Polyvinyl Alcohol/Povidone O/S 1 drop LEFT EYE BID 05/13/17 07/05/17 History [Refresh Classic] Rivaroxaban [Xarelto] 20 mg PO WS 05/13/17 07/05/17 History [place] 160 mg PO DAILY 05/13/17 07/05/17 History Ubidecarenone [Co Q-10] 200 mg PO DAILY 05/13/17 07/05/17 History iron, carbonyl 25 mg tablet 25 mg PO DAILY tab 06/12/17 07/05/17 History Amoxicillin 07/05/17 History Betaxolol 0.5% Eye Drops [Betoptic] 1 drop EACH EYE BID 07/05/17 07/05/17 History Calcium Carb, Cit/Magnesium Ox 500 mg PO AM 07/05/17 07/05/17 History Carboxymethylcellulose O/S 1 drop LEFT EYE BID MDD as needed 07/05/17 07/05/17 History [Refresh Celluvisc] [place]-3/Dha/Epa/Fish Oil [Fish Oil 1,360 mg PO DAILY 07/05/17 07/05/17 History 1,360 mg Softgel] Trusopt 1 drop EACH EYE BID 07/05/17 07/05/17 History Allergies Allergy/AdvReac Type Severity Reaction Status Date / Time No Known Drug Allergies Allergy Unknown Verified 06/12/17 13:10 Exam Vital signs: Temperature 97.3 F 07/06/17 07:00 Pulse Rate 69 07/06/17 07:00 Respiratory Rate 16 07/06/17 07:00 Blood Pressure 156/88 H 07/06/17 07:00 Pulse Oximetry 93 07/06/17 07:00 - Constitutional no acute distress, cooperative - Routine HEENT Exam Head: Present: normocephalic Eye: Present: EOMI, PERRL ENT: Present: mucous membranes moist Throat: normal inspection - Routine Neck Exam Present: supple, lymphadenopathy (small 5 mm shotty lymph node right posterior cervical chain, couple of smaller 3 mm lymph nodes in this area that are probably not pathologic. No palpable axillary or supraclavicular lymph nodes) - Routine Chest/Breast/Axilla Exam Axillae: Absent: lymphadenopathy - Routine Respiratory Exam Present: decreased breath sounds, CTA bilaterally. Absent: accessory muscle use - Routine Cardiovascular Exam Present: no murmur, irregular rhythm - Routine Abdominal Exam Present: soft, non tender. Absent: non distended, organomegaly - Routine Extremities Exam Absent: cyanosis, clubbing - Routine Back/Spine/Pelvis Exam Comments: Significant arthritis of the PIP joints and of the metacarpal/phalangeal joints - Routine Skin Exam Present: dry, warm - Routine Neurological Exam Present: alert, CN II-XII intact - Routine Psychiatric Exam Present: normal affect Oncology Results - Labs CBC & Chem 7: 07/06/17 05:35 07/06/17 05:35 Labs: Short CBC 07/06/17 Range/Units 05:35 WBC 1.7 L* (4.5-11.0) T/MM3 Hgb 11.5 L (13.5-17.5) GM/DL Hct 34.5 L (41-53) % Plt Count 94 L (130-400) T/MM3 BMP 07/06/17 05:35 Sodium 142 Potassium 4.1 Chloride 107 Carbon Dioxide 26 BUN 18.0 Creatinine 0.6 L Glucose 95 Calcium 8.7 Cardiac Enzymes 07/05/17 Range/Units 16:03 Troponin I < 0.012 (0-0.12) ng/ml Liver Function 07/06/17 Range/Units 05:35 Total Bilirubin 0.40 (0.20-1.30) MG/DL AST 30 (17-59) U/L ALT 25 (21-72) U/L Alkaline Phosphatase 66 (38-126) U/L Albumin 3.4 L (3.5-5.0) G/DL Urine 07/05/17 Range/Units 15:29 Urine Color Yellow (YELLOW) Urine Clarity Clear Urine pH 7.0 (5.0-8.0) Ur Specific [place] 1.015 (1.015-1.025) Urine Protein Negative (NEGATIVE) Urine Glucose (UA) Negative (NEGATIVE) Laboratory Tests 05/18/17 05/20/17 05/21/17 03:51 16:36 04:23 WBC 4.2 L Hgb 11.5 L MCV Plt Count 168 D Neutrophils % (Manual) Lymphocytes % (Manual) Monocytes % (Manual) Neutrophils # (Manual) INR Fibrinogen D-Dimer Iron 43 L TIBC 216 L % Saturation 20 Ferritin 164 B-Natriuretic Peptide Stool Occult Blood Positive A Stool for White Cells Influenza Type B (PCR) 07/05/17 07/05/17 07/05/17 11:46 11:46 14:29 WBC 1.7 L* 1.6 L* Hgb 12.3 L 12.3 L MCV Plt Count 94 L 100 L Neutrophils % (Manual) Lymphocytes % (Manual) Monocytes % (Manual) Neutrophils # (Manual) INR 1.32 H Fibrinogen 319 D-Dimer 153 Iron TIBC % Saturation Ferritin B-Natriuretic Peptide Stool Occult Blood Stool for White Cells Influenza Type B (PCR) Detected A* 07/05/17 07/05/17 07/06/17 16:03 Unknown 05:35 WBC 1.7 L* Hgb 11.5 L MCV 98.0 Plt Count 94 L Neutrophils % (Manual) 62.0 Lymphocytes % (Manual) 32.0 Monocytes % (Manual) 6.0 Neutrophils # (Manual) 1.1 L INR Fibrinogen D-Dimer Iron TIBC % Saturation Ferritin B-Natriuretic Peptide 560 H Stool Occult Blood Stool for White Cells Positive Influenza Type B (PCR) - Imaging and Cardiology CT scan - chest Status: image reviewed by me Additional comments: Images reviewed by myself. Multiple small peripheral nodules. Some appear more solid and worrisome for metastatic disease others are more fluffy infiltrative worrisome for something such as histoplasmosis. Assessment and Plan Assessment and Plan: Pancytopenia with neutropenia associated with influenza. This could be pancytopenia secondary to viral decreased production. Will check LDH, peripheral smear is pending, B 12 studies have been ordered by Dr. Ferrari. Counts are stable for the last 24 hours. We'll continue to follow. 2. Indeterminate lung nodules, multiple. Some are pleural-based and would be accessible to biopsy. Will obtain serum and urine histoplasma antigens and antibody to evaluate for fungal etiology. Could possibly be related to rheumatoid arthritis and rheumatoid nodules. Do not appear to be related to his viral infection. 3. History of atrial fibrillation and anticoagulated with Xaralto. Would need to hold Xaralto 24 hours prior to and 24 hours after any biopsy. 4. Post polio syndrome 5. Guaiac positive stool of uncertain etiology. Colonoscopy in 2013. Will probably need repeat colonoscopy Recommendations: 1. Await peripheral smear 2. Await B-12 level 3. Supportive care 4. Evaluate lung nodules with serum and urine histoplasma antibodies 5. Consider biopsy. 6. I will see patient again on Saturday. Hospital Course Summary Disclaimer: The visit summary below is not to be considered part of the above Progress Note.
[2017-07-06] MEDS: BENZONATATE 200 MG CAPSULE PO SCH ×3 (10:08→20:37)
[2017-07-06] MEDS: MULTI-VITAMIN PLAIN TABLET PO SCH (10:08)
[2017-07-06] MEDS: DORZOLAMIDE 2% EYE DROPS 10ml RIGHT EYE SCH ×2 (10:08→16:15)
[2017-07-06] MEDS: BETAXOLOL 0.25% RIGHT EYE SCH ×2 (10:09→20:33)
[2017-07-06] MEDS: COENZYME Q-10 200mg TABLET PO SCH (10:09)
[2017-07-06] MEDS: AMOXICILLIN 875 MG TABLET PO SCH ×2 (10:09→20:33)
[2017-07-06] MEDS: EYE RIGHT EYE SCH ×2 (10:09→20:33)
[2017-07-06] MEDS: FLECAINIDE 50 MG TABLET PO SCH ×2 (10:09→20:33)
[2017-07-06] MEDS: CALCIUM 600 + VIT D 400 TABLET PO SCH ×2 (10:10→20:33)
[2017-07-06] MEDS: LOSARTAN 50 MG TABLET PO SCH (10:10)
--- NOTE | 2017-07-06 10:12 | Progress Note ---
- Date 07/06/17 Subjective: no acute events overnight. patient states he's doing remarkably better. no new issues. no headaches, stroke symptoms, syncope, dizziness, falls, trauma, injuries, ear pain, sinus pain, sore throat. has mild runny nose with clear rhinorrhea. no fevers, chills, body aches. generalized fatigue and weakness from yesterday improved a great deal. no photophobia, meningeal symptoms, altered mentation, obtundation, confusion, chest pain, SOA, orthopnea, PND, new edema, leg asymmetry. no changes in exertional tolerance. cough much improved and only mild now. occasional clear sputum. no hemoptysis. no palpitations. no issues called on telemetry. no abdominal pain, GERD symptoms, nausea, vomiting, diarrhea, constipation. patient states his bowel issues have resolved. X1 normal BM per patient since our last visit. no hematemesis, coffee ground emesis, melena, BRBPR, bloody/black stools. no dysuria, hematuria , urinary frequency, flank pain, nocturia, urinary/bowel incontinance, urinary retention, polyuria, oliguria, other urinary changes/symptoms. no mood changes or depression. Dr. Coleman has already spoken to patient about nodules in lungs and blood counts today he says. no new issues otherwise at this time. Objective Vital signs: Temperature 97.3 F 07/06/17 07:00 Pulse Rate 69 07/06/17 07:00 Respiratory Rate 16 07/06/17 07:00 Blood Pressure 156/88 H 07/06/17 07:00 Pulse Oximetry 93 07/06/17 07:00 Rhythm: Normal Sinus Rhythm Height/Weight/BMI: Height 1.78 m Weight 77.4 kg Body Mass Index 24.5 - Constitutional Present: no acute distress, thin, cooperative. Absent: cachectic, diaphoretic, disheveled, combative, agitated, somnolent, obtunded - Routine HEENT Exam Head: Present: normocephalic, atraumatic Eye: Absent: nystagmus, exophthalmos, proptosis ENT: Present: mucous membranes moist - Routine Respiratory Exam Present: CTA bilaterally. Absent: accessory muscle use, patient mechanically ventilated, dyspnea, decreased breath sounds, prolonged expiratory phase, rales , respiratory distress, rhonchi, stridor, wheezes, crackles, distant breath sounds, diminished air movement Comments: lung sounds heard in all lung serna b/l at this time. that which is noted above is bilateral unless otherwise noted. - Routine Cardiovascular Exam Present: RRR Comments: no changes in cardiac exam from previous. no new edema. legs symmetrical and compartments soft b/l in LE's at this time. clinically well perfused in all 4 extremities b/l at this time. - Routine Abdominal Exam Present: soft (X4.), normoactive bowel sounds (X4.), non distended (X4.), non tender (X4.). Absent: tenderness (X4.), distended (X4.), rebound, guarding, firm, rigid, organomegaly, mass Comments: no ascites or jaundice. - Routine Extremities Exam Comments: see the above. no boggy/inflammed/painful joints or focal muscle groups. - Routine Back/Spine/Pelvis Exam Comments: no clinical evidence of upper or lower UTI b/l at this time. - Routine Musculoskeletal Exam Musculoskeletal: Present: no joint swelling, no erythema, moving extremities well - Routine Skin Exam Present: intact Comments: no skin changes from previous to uncovered areas at this time. - Routine Neurological Exam Present: alert, oriented X3 no changes neurologically from previous baseline. no photophobia. no clinical evidence of meningitis or encephalopathy at this time. no clinical evidence of delerium, benja, depression, anxiety, altered mentation, confusion, obtundation. - Routine Lymphatic Exam Lymphatic: Absent: lymphedema - Routine Psychiatric Exam Present: normal affect, normal thought process, cooperative, good insight, good judgment. Absent: auditory hallucinations, visual hallucinations, tactile hallucinations, depressed, anxious, agitated, paranoid, manic Comments: see the above. Results - Labs CBC & Chem 7: 07/06/17 05:35 07/06/17 05:35 Microbiology Results: Microbiology 07/06/17 09:40 Sputum, Expectorated Sputum Culture - Preliminary Culture Initiated - Results Pending 07/05/17 16:03 Peripheral/Iv Start Blood Culture - Preliminary Culture Initiated - Results Pending 07/05/17 16:03 Peripheral/Iv Start Blood Culture - Preliminary Culture Initiated - Results Pending Assessment and Plan Assessment and Plan: acute pancytopenia and afebrile neutropenia, likely from influenza B chronic diarrhea over last 4 to 6 weeks with likely viral gastroenteritis, resolved acute bronchitis from influenza B non specific pulmonary nodules with considerations being metastatic disease versus fungal infection albeit significantly less likely. periapical abscesses, resolved. mild clinical dehydration, resolved atrial fibrillation, chronically anticoagulated HTN -continue inpatient, routine vitals with call parameters, telemetry, oxygen as needed, I's and O's, daily weights, neutropenic precautions, cardiac diet. -TSH, DIC panel, BNP, magnesium, phos, troponin, CK unremarkable. cbc from today with mild improvement in neutropenia and otherwise stable cytopenias and otherwise unremarkable. cmp's stable. UA unremarkable. CT chest with non specific pulmonary nodules which likely represent metastatic disease but otherwise see above for further description on this. EKG yesterday non- acute and NSR. patient's stool wbc came back positive but given resolution of diarrhea now this is unlikely of any clinical significance. see previous records for other testing and results from this stay. -blood cultures X2, histoplasma serologies, B12, folate, urine for legionells, urine for strep pneumonia, mycoplasma serologies, sputum culture and gram stain all pending. -cbc, cmp, CEA, CA 19-9, PSA in the AM. -continue PO tamiflu day 2, duonebs scheduled, tessalon perles scheduled, home calcium/vitamin D, multivitamin, losartan, Co-Q 10, flecainide, xarelto. -IV fluids discontinued as patient is euvolemic. d/c amoxicillin as he's finished course. previous dental issues resolved. -holding home fish oil and other over the counter supplaments. -Dr. Coleman of heme/onc consulted. see above. no indication for further antimicrobial coverage at this time. clinically patient stable. if patient changes clinically this may change so will continue to monitor. would consider cefipime and/or fungal coverage if things change but continue to monitor for now. -pulmonary and/or infectious disease consultation are considerations come next week but they're not here today. glaucoma dry eyes -continue home betopic, trusopot and refresh eye drops all other chronic medical issues stable and no other changes to plan of care at this time. ppx -continue home xarelto as noted above. -PO diet as noted above for GI ppx. -DNR/DNI. -dispo will likely be here throughout the into saturday. DVT Prophylaxis: Xarelto (continued from home. ) GI Prophylaxis: other (continue PO diet.) Resuscitation Status: Do Not Resuscitate (DNR/DNI per patient request.) - Time spent with patient Time with patient PN: 25 minutes Sepsis Assessment - Evaluation SIRS Criteria: WBC < 4,000
[2017-07-06] MEDS: RIVAROXABAN 20 MG TABLET PO SCH (17:57)
[2017-07-06] MEDS: DORZOLAMIDE 2% EYE DROPS 10ml LEFT EYE SCH (20:49)
[2017-07-07] MEDS: ALBUTEROL/IPRATROPIUM 2.5mg-0.5mg/3ml NEB AEROSOL SCH ×3 (07:35→15:10)
[2017-07-07] MEDS: MULTI-VITAMIN PLAIN TABLET PO SCH (08:40)
[2017-07-07] MEDS: CALCIUM 600 + VIT D 400 TABLET PO SCH (08:40)
[2017-07-07] MEDS: FLECAINIDE 50 MG TABLET PO SCH (08:40)
[2017-07-07] MEDS: COENZYME Q-10 200mg TABLET PO SCH (08:40)
[2017-07-07] MEDS: BENZONATATE 200 MG CAPSULE PO SCH ×2 (08:40→14:04)
[2017-07-07] MEDS: DORZOLAMIDE 2% EYE DROPS 10ml LEFT EYE SCH ×2 (08:41→14:05)
[2017-07-07] MEDS: EYE RIGHT EYE SCH (08:41)
[2017-07-07] MEDS: BETAXOLOL 0.25% RIGHT EYE SCH (08:41)
[2017-07-07] MEDS: LOSARTAN 50 MG TABLET PO SCH (08:47)
[2017-07-07 15:14] VITALS: RESP 14
[2017-07-07 15:20] VITALS: BP 137/73; TEMP 97.3; O2SAT 95
--- NOTE | 2017-07-07 16:09 | Progress Note ---
- Date 07/07/17 Subjective: no acute events overnight. patient doing well. nearly back to baseline. cough continues to improve. no production now. no headaches, stroke symptoms, syncope, dizziness, falls, trauma, injuries, ear pain, sinus pain, sore throat, URI symptoms, runny nose. feels strong and steady when he gets up and ambulates. no skin changes or new rashes. no acute vision changes. no fevers , chills, body aches, appetite changes. appetite is good. no diarrhea since admission. no boggy/inflammed/painful/swollen joints or focal muscle groups. no mood changes, depression symptoms, altered mentation, confusion, obtundation. cognition stable. no abdominal pain, GERD symptoms, hematemesis, coffee ground emesis, melena, BRBPR, constipation, bloody/black stools, dysuria , hematuria, urinary frequency, flank pain, nocturia, urinary/bowel incontinance , urinary retention, polyuria, oliguria, new edema, leg asymmetry. no photophobia, encephalopathic symptoms or meningeal symptoms. no events called on telemetry. he has been afebrile since admission and hasn't felt systemically ill at all today. no new issues otherwise at this time. Objective Vital signs: Temperature 97.3 F 07/07/17 15:18 Pulse Rate 75 07/07/17 15:18 Respiratory Rate 14 07/07/17 15:18 Blood Pressure 137/73 07/07/17 15:18 Pulse Oximetry 95 07/07/17 15:18 Rhythm: Normal Sinus Rhythm Height/Weight/BMI: Height 1.78 m Weight 76.5 kg Body Mass Index 24.5 - Constitutional Present: no acute distress, thin, cooperative Comments: not combative, somnolent, obtunded. - Routine HEENT Exam ENT: Present: mucous membranes moist - Routine Respiratory Exam Present: CTA bilaterally Comments: LCTAB. no CWR. lung sounds heard in all lung serna b/l at this time. moving air well. no respiratory distress, retractions, accessory muscle use, stridor, airway compromise b/l at this time. - Routine Cardiovascular Exam Present: RRR Comments: no new murmurs. cardiac exam unchanged from previous. no new edema. legs symmetrical and compartments soft b/l in LE's at this time. clinically well perfused in all 4 extremities b/l at this time. - Routine Abdominal Exam Present: soft (X4.), normoactive bowel sounds (X4.), non distended (X4.), non tender (X4.) Comments: no rebound, guarding, rigidity, ascites, jaundice, organomegally at this time. - Routine Exam Comments: no tenderness over bladder area. no clinical evidence of upper or lower UTI b/ l at this time. - Routine Extremities Exam Comments: no pallor or cyanosis. no boggy/inflammed/painful joints or focal muscle groups in extremities b/l X4. - Routine Back/Spine/Pelvis Exam Comments: see the above. - Routine Musculoskeletal Exam Musculoskeletal: Present: no joint swelling, no tenderness, no erythema, moving extremities well - Routine Skin Exam Present: intact Comments: no skin/soft tissue changes from previous. no clinical evidence of skin/soft tissue infection. unchanged from previous to uncovered areas b/l at this time. - Routine Neurological Exam Present: alert, oriented X3 no photophobia. no clinical evidence of encephalopathy or meningitis at this time. no clinical evidence of depression, benja, altered mentation, obtundation , confusion, psychosis, delerium at this time. no changes. - Routine Lymphatic Exam Comments: no changes. - Routine Psychiatric Exam Present: normal affect, normal thought process, cooperative, good insight, good judgment Comments: see the above also. Results - Labs CBC & Chem 7: 07/07/17 04:36 07/07/17 04:36 Microbiology Results: Microbiology 07/05/17 17:05 Urine Streptococcus pneumoniae Antigen (M - Final 07/05/17 17:05 Urine Legionella Urinary Antigen - Final 07/05/17 16:03 Peripheral/Iv Start Blood Culture - Preliminary No Growth After 1 Day 07/05/17 16:03 Peripheral/Iv Start Blood Culture - Preliminary No Growth After 1 Day 07/06/17 09:40 Sputum, Expectorated Gram Stain - Final 07/06/17 09:40 Sputum, Expectorated Sputum Culture - Preliminary Assessment and Plan Assessment and Plan: acute pancytopenia and afebrile neutropenia, likely from influenza B chronic diarrhea over last 4 to 6 weeks with likely viral gastroenteritis, resolved acute bronchitis from influenza B non specific pulmonary nodules with considerations being metastatic disease versus fungal infection albeit significantly less likely. periapical abscesses, resolved. mild clinical dehydration, resolved atrial fibrillation, chronically anticoagulated HTN -patient admitted as outpatient. continue routine vitals with call parameters, telemetry, oxygen as needed, I's and O's, daily weights, neutropenic precautions, cardiac diet while in hospital. see discharge summary and orders for further information. -cbc's with improving pancytopenia and neutropenia and thrombocytopenia and otherwise unremarakble. cmp's generally unremarkable. urine strep pneumonia and urine legionella unremarkable. see previous notes for other testing and results from this stay. -blood cultures X2, histoplasma serologies, B12, folate, mycoplasma serologies, sputum culture and gram stain, CEA, CA 19- 9, PSA pending. -continue PO tamiflu day 3, duonebs scheduled, tesemaon gerri scheduled, home calcium/vitamin D, multivitamin, losartan, Co-Q 10, flecainide, xarelto. -holding home fish oil and other over the counter supplaments while inpatient. -Dr. Coleman of heme/onc consulted. glaucoma dry eyes -continue home betopic, trusopot and refresh eye drops all other chronic medical issues stable and no other changes to plan of care at this time. ppx -continue home xarelto as noted above. -PO diet as noted above for GI ppx. -DNR/DNI. -dispo discharge to home today. see discharge summary and orders for details. DVT Prophylaxis: Xarelto (continue xarelto from home. ) GI Prophylaxis: other (continue PO diet. ) Resuscitation Status: Do Not Resuscitate (DNR/DNI.) - Time spent with patient Time with patient PN: 50 minutes (discharge.) Sepsis Assessment - Evaluation SIRS Criteria: WBC < 4,000 Severe Sepsis: none seen
[2017-07-07 16:41] VITALS: PULSE 68
[2017-07-07] MEDS: RIVAROXABAN 20 MG TABLET PO SCH (17:41)
--- NOTE | 2017-07-07 19:22 | CT Scan Report ---
Indication: Abnormal chest x-ray PROCEDURE: CT chest wo con: Encounter: Initial Comparison: Chest x-ray dated July 05, [address] angiogram of the chest dated August 12, 2015 Technique: Axial CT images were performed through the chest without intravenous contrast. Coronal and sagittal two-dimensional reformats. Automated Exposure Control and Iterative Reconstruction dose reducing techniques were utilized. Findings: There are numerous nodular opacities seen scattered throughout both lung. Caster Helper nodule in the right upper lobe on image #14 measures 1.2 cm in diameter. Caster Helper left lower lobe nodule on image #21 measures 1.6 cm in diameter. Right lower lobe nodule on image #36 measures 1.6 cm in diameter. These have a peripheral and subpleural predominance. No lobar consolidative pneumonia. No pleural effusion or pneumothorax. The central airways are patent. Some of the nodules appear "soft" with bronchi seen running through the central portion of the nodule. There is no axillary adenopathy. Prominent right paratracheal node on image #26 measuring 1.4 cm in short axis. This is new or larger from the comparison. Heart size is stable. No pericardial effusion. The upper abdomen shows no acute findings. Colonic interposition anterior to the liver. Diffuse arterial vascular calcifications. Bone windows show degenerative change in the spine with chronic mild wedging of a few mid to lower thoracic vertebra. No obvious lytic or blastic bony lesions. Multiple old healed left rib fractures. Impression: Numerous scattered bilateral pulmonary nodules. These could be infectious, inflammatory or metastatic. Differential considerations include metastatic disease, atypical infection, fungal infection and septic emboli. Lymphoma, sarcoidosis and pulmonary vasculitis such as Gabbie's are also within the differential. There is a preliminary report by [facility]. .
--- NOTE | 2017-07-09 07:53 | Discharge Summary ---
DATE OF ADMISSION: 07/05/2017 DATE OF DISCHARGE: 07/07/2017 MODE OF ADMISSION: Outpatient ATTENDING PHYSICIAN: Dr. Ferrari of [facility]. ADMITTING PHYSICIAN: Dr. Ferrari of [facility] CONSULTING PHYSICIAN: Dr. Cricket Snow of Hematology/Oncology. PATIENT'S USUAL PRIMARY CARE PROVIDER: Dr. Adam Vegas of Family Medicine at [facility]. . ANCILLARY SERVICES: There were none during the stay. DISCHARGE DIAGNOSES 1. Acute pancytopenia and afebrile neutropenia, likely from influenza B. 2. Chronic diarrhea over the preceding 4-6 weeks which likely represented a viral process. This has resolved. 3. Acute bronchitis from influenza B. 4. Nonspecific pulmonary nodules with considerations being metastatic disease versus fungal infection, albeit infection far less likely. 5. Periapical dental abscesses, resolved. 6. Mild clinical dehydration, resolved. 7. Atrial fibrillation and chronic anticoagulation. 8. Hypertension. 9. Elevated CA 19-9 level. 10. Stool positive for white blood cell on admission but diarrhea resolved and unlikely of any clinical significance. DISCHARGE MEDICATIONS 1. Ventolin inhaler 90 mcg, 2 puffs orally q.6h. p.r.n. shortness of air/ wheezing. 2. Tessalon Perles 200 mg p.o. q.8h. p.r.n. cough/congestion x 14 days. 3. Tamiflu 75 mg p.o. b.i.d. x 3 more days with no refills. 4. Vitamin D3 1000 units orally daily. 5. Arginine 500 mg p.o. daily. 6. CoQ10, 200 mg p.o. daily. 7. Saw palmetto 160 mg p.o. daily. 8. Multivitamin, one p.o. daily. 9. Fish Oil 1360 mg Softgel, one p.o. daily. 10. Calcium carbonate/D3/magnesium/zinc, one p.o. daily as a separate multivitamin. 11. Trusopt, 1 drop in eyes as per prehospitalization b.i.d. 12. Xarelto 20 mg p.o. daily. 13. Losartan 50 mg p.o. daily. 14. Flecainide 50 mg p.o. b.i.d. 15. Refresh eye drops, continue sig as per prehospitalization. 16. Betoptic 0.5%, Sig as per prehospitalization. 17. The patient's amoxicillin was discontinued as he finished a course of that for his periapical abscesses noted above. DISCHARGE DIET: Cardiac and low sodium. DISCHARGE ACTIVITY: No changes from prehospitalization. FOR PAIN MANAGEMENT: The patient was told if he has any new or changing pain or discomfort he will let us know right at that time. WOUND CARE: The patient was instructed that if any of his IV sites from this hospitalization become swollen, inflamed, painful or start weeping that he will let us know right at that time. ADDITIONAL INSTRUCTIONS 1. Orders given to nursing to discontinue all IVs, lines and telemetry the patient did not come in on before discharge. 2. If any issues worsen and/or new ones occur, the patient will be seen immediately. 3. If the patient cannot access his medications and/or make his follow-ups then he will let us know right away. EXPECTED SIGNS/SYMPTOMS The patient was instructed that his cough, congestion, fever, fatigue and weakness should continue to improve and eventually resolve. The patient was told that his diarrhea should continue to stay resolved as well. The patient was told to return to care immediately if his cough, congestion, fatigue, weakness turn around again and become worse. He was also told to return to care immediately if any fevers, shortness of air or diarrhea occur. Numbers were given for contact of Dr. Ferrari and Dr. Vegas for both during and after business hours. FOR PENDING LAB RESULTS: These will be followed up by primary care. KanQuit: This was not applicable as the patient does not use tobacco products. FOLLOWUP 1. The patient will follow up with Dr. Adam Vegas within the next week with a CBC and CMP done the day before and sent to him. 2. To the patient will follow up with Dr. Cricket Snow on 07/11/2017. PERTINENT VITAL SIGNS DURING THE STAY The patient was initially a little hypertensive when he came in, but this had resolved and his blood pressure was 137/73 by discharge. The patient was afebrile throughout. Heart rate, respiration rate, pulse rate, telemetry, oxygen saturations were all normal. The patient was on room air throughout. PERTINENT MICROBIOLOGY/LABS WHILE HERE The patient's sputum gram stain showed a great many number of organisms which was likely contaminant. A sputum culture was unremarkable. Urine Legionella and Streptococcal pneumoniae antigen were unremarkable. Blood cultures x 2 done on admission were negative to date. The patient's white blood cell count when he came in was 1.7 and it was 2.4 by discharge. Hemoglobin was in the mid-11s while here. Hematocrits were in the 34-35 range. Platelet counts were in the 90-thousands. The patient's neutrophils on admission were about 900 and these came up to 1400 by discharge. The patient's sodium, potassium, chloride, acid base status, anion gap, kidney function, blood sugars, calcium, phosphorus, magnesium, liver functions tests were all unremarkable while here. LDH on 07/06/2017 was normal. Creatinine kinase on admission was normal. Troponin during the stay on admission was normal. Brain natriuretic peptide was unremarkable as was the patient's CRP. Protein indices were generally normal while here. The patient's carcinoembryonic antigen was normal. The patient's CA 19-9 antigen was elevated at 258. The patient's prostate specific antigen was normal. The patient's TSH on admission was normal. The patient's UA on admission showed a trace amount of intact blood but was otherwise normal. THE PATIENT'S HISTOPLASMA SEROLOGIES ARE STILL PENDING ARE THE PATIENT'S MYCOPLASMA SEROLOGIES. The patient did have some white blood cells in his stool according to the testing, but given that his diarrhea resolved this doesn't appear clinically significant. The patient's respiratory PCR panel was positive for influenza B and otherwise negative on admission. A PERIPHERAL SMEAR, B12 AND FOLATE ARE STILL PENDING. The stool PCR was completely normal while here. Patient's DIC panel, lactic acid and procalcitonin were unremarkable on admission. PERTINENT PHYSICAL EXAM FINDINGS Please note that the patient's lung exam and cardiac exam were generally unremarkable while here. The patient's abdominal exam was unremarkable as well. IMAGING DONE DURING THIS STAY The patient's chest x-ray demonstrated nonspecific pulmonary nodularity. Subsequent CT scan was notable for these nodules as well. There was no real indication of any infection although this was mentioned in the differential. Clinically, the patient did not have any evidence of an atypical infection. EKGs were generally nonacute while here. HISTORY OF PRESENT ILLNESS AND HOSPITAL COURSE This is a pleasant 87-year-old male who usually follows with Dr. Vegas at [facility]. His most recent issues were noted to be 10 days of fevers as well as moderate body aches and fatigue. He also had a cough as well. He was seen in clinic on the day of admission for this. An extensive imaging and laboratory evaluation was undertaken and as is noted above. His influenza came back positive. He was admitted and started on Tamiflu. He was modestly dehydrated and started on IV fluids. The dehydration, resolved. By discharge the patient's cough, fevers and chills were essentially resolved. Part of the reason he was admitted was to monitor for fever and this never occurred. By discharge, his strength was back to baseline per the patient. He was discharged on the regimen as noted above. It was noted that the patient's white count was critically low, as were the patient's neutrophils. This was likely from the influenza B. There are several tests pending at this time as noted above. Dr. Snow of Hematology was consulted and will be following as noted above. These were improving by discharge and will be followed as noted above. The patient was on neutropenic precautions while here. The patient was noted to incidentally have nodules in his lungs as noted above. His CA 19-9 was elevated as noted. A CT of the abdomen and pelvis with IV contrast has been ordered as an outpatient already. This will be followed further as an outpatient as there is significant concern for metastatic cancer. Please see above for this. Patient was having some dental pain/infections before admission. He finished his course of amoxicillin that was started by his dentist as an outpatient here and history/physical exam both unremarkable for any acute issues here. this can be followed as an outpatient. In regards to the patient's acute bronchitis. He will be on the Tamiflu as noted above as well as the Tessalon Perles and albuterol. DuoNeb did seem to help quite a bit while here. The patient's stool white blood cells were positive as noted above. Patient had had normal appearing diarrhea without other abdominal complaints on and off for about 1 month previos to admission. The patient's diarrhea resolved upon admission and bowel movements were normal while here. Stool PCR was otherwise negative. It is unlikely the stool white blood cells are of any clinical significance, but the patient is under strict instructions to let us know right away if his diarrhea recurs and he verbalized understanding. [facility]
== END 2017-07-07 19:16 | disposition home or self-care (01) ==
LOC: MED 14:41 → INTOOBSV 14:41
PROVIDERS: ADMIT Internal Medicine; ATTEND Internal Medicine

== ENCOUNTER 2017-09-25 19:14 | Inpatient (IN) ==
[2017-09-25] MEDS ORDERED: CEFEPIME 1 GM in NS 100 ML IV ONE (19:34)
[2017-09-25] MEDS ORDERED: NS 1,000 ML IV ONE ×2 (19:34→20:49)
--- NOTE | 2017-09-25 19:38 | Emergency Department Report ---
Fever HPI - General Stated Complaint: Dr Sent him in 102 Temp Time Seen by Provider: 09/25/17 19:34 Source: patient, RN notes reviewed, old records reviewed Mode of arrival: ambulatory Limitations: no limitations - History of Present Illness HPI Narrative: 87yo man presents to the ER for evaluation of a fever. Pt has pancreatic cancer , but is still trying to 'fight it' with gemcitabine. Has had some b/l UE paresthesias since starting chemo. Denies CP. Pt was treated with GCSF 2 days ago for thrombocytopenia and neutropenia. - Related Data Home Medications Medication Instructions Recorded Confirmed Arginine [l-Arginine] 500 mg PO DAILY 05/13/17 09/25/17 Calcium Carb/D3/Magnesium/Zinc 1 tab PO DAILY 05/13/17 09/25/17 [Wbpzyte-Qiv-Hwtk-Vit D Tablet] Cholecalciferol (Vitamin D3) 1,000 unit PO DAILY 05/13/17 09/25/17 [Vitamin D3] Dorzolamide Eye Drops [Trusopt] 1 drop RIGHT EYE BID 05/13/17 09/25/17 Flecainide [Tambocor] 50 mg PO BID 05/13/17 09/25/17 Losartan Potassium [Cozaar] 50 mg PO DAILY 05/13/17 09/25/17 Multivitamin [One Daily] 1 tab PO DAILY 05/13/17 09/25/17 [place]-3/Dha/Epa/Fish Oil [Fish Oil 1,360 mg PO DAILY 05/13/17 09/25/17 1,360 mg Softgel] Rivaroxaban [Xarelto] 20 mg PO WS 05/13/17 09/25/17 Saw [place] 160 mg PO DAILY 05/13/17 09/25/17 Ubidecarenone [Co Q-10] 200 mg PO DAILY 05/13/17 09/25/17 Betaxolol 0.5% Eye Drops [Betoptic] 1 drop RIGHT EYE BID 07/05/17 09/25/17 Carboxymethylcellulose O/S 1 drop LEFT EYE 6XD PRN 07/05/17 09/25/17 [Refresh Celluvisc] Ferrous Sulfate [Iron] 325 mg PO DAILY 09/25/17 09/25/17 Vit A/C/E AC/Znox/Cupric Oxide 1 tab PO DAILY 09/25/17 09/25/17 [Eye Vitamin-Minerals Tablet] Allergies Allergy/AdvReac Type Severity Reaction Status Date / Time No Known Drug Allergies Allergy Unknown Verified 09/25/17 19:52 [facility] Patient Stated Medical History Syncope Yes: when over worked or stressed Transient Ischemic Attacks ( Yes TIA) Cataracts Yes: Bilateral Glaucoma Yes Angina Yes Hypertension Yes Other Cardiology Yes: afib Constipation Yes Hiatal Hernia Yes Hx Incontinence Yes Hx Urinary Tract Infection Yes Other troubles urinating at times, enlarged prostate Other Hematologic Yes: Daily Xarelto Other Musculoskeletal Yes: Polio Chemotherapy Yes: skin cancer removed Other Yes: skin cancer removed Clinic Medical History (Last Updated 09/18/17 @ 11:17 by Leslie Lucero APRN) Polio (Acute Medical) TIA (transient ischemic attack) (Acute Medical) Stroke (Acute Medical) 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 -syncopeal spells of uncertain etiology. -atrial fibrillation. -hypertension. -post polio syndrome. - osteoarthritis. -glaucoma. 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 -right ankle ORIF 2015. -colonoscopy 2012. - hernia repair. -tonsillectomy Family History: Family History (Last Updated 09/18/17 @ 11:19 by Leslie Lucero APRN) Father Cancer of lung Mother Stroke Sister Cancer of breast Family History Updates: -father had lung cancer. -mother had vericose veins, stroke. -paternal grandfather had CAD. -siblings have vericose veins - Social History Smoking status: Never smoker Substance use type: does not use Alcohol intake: never Alcohol intake frequency: does not drink Housing: other Household members: spouse Current occupational status: retired Current residence: Apartment/Private Home [place] - Consultations Consultation #1: Jb Telemed: Time: 20:59 Vital Signs Temperature 99.1 F 09/25/17 19:17 Pulse Rate 89 09/25/17 19:17 Respiratory Rate 18 09/25/17 19:17 Blood Pressure 160/82 H 09/25/17 19:17 Pulse Oximetry 93 09/25/17 19:17 Temperature 99.1 F 09/25/17 19:17 Pulse Rate 89 09/25/17 19:17 Respiratory Rate 18 05/16/18 19:17 Blood Pressure 160/82 H 09/25/17 19:17 Pulse Oximetry 93 09/25/17 19:17 Fever - MDM Narrative Medical decision making narrative: Pt with sepsis criteria. Will contact hospitalist for admission for further treatment. - Differential Diagnosis Likely: cellulitis, fever of unknown origin, community acquired pneumonia, pyelonephritis, sepsis (Neutropenic fever) - Medical Records Attestation: I reviewed the patient's medical records. - Lab Data Attestation: I reviewed the patient's lab results. Result diagrams: 09/25/17 19:46 09/25/17 19:46 Lab Results 09/25/17 09/25/17 09/25/17 Range/Units 19:46 19:46 20:42 WBC 15.4 H D (4.5-11.0) T/MM3 RBC 3.42 L (4.50-5.90) M/MM3 Hgb 11.6 L (13.5-17.5) GM/DL Hct 34.5 L (41-53) % MCV 100.9 H (80-100) UM3 MCH 33.9 (26-34) UUG MCHC 33.6 (31-37) GM/DL RDW Std Deviation 48.8 (36.9-50.2) FL Plt Count 102 L D (130-400) T/MM3 MPV 10.2 (9.4-12.4) UM3 Immature Gran % (Auto) Not performed Neut % (Auto) Not performed Lymph % (Auto) Not performed [place] % (Auto) Not performed Eos % (Auto) Not performed Baso % (Auto) Not performed Neut # (Auto) Not performed Lymph # (Auto) Not performed [place] # (Auto) Not performed Eos # (Auto) Not performed Baso # (Auto) Not performed Abs Immat Gran (auto) Not performed Neutrophils % (Manual) 77.0 H (33-66) % Band Neutrophils % 13.0 H (0-6) % Lymphocytes % (Manual) 3.0 L (23-45) % Monocytes % (Manual) 6.0 (0-9.0) % Metamyelocytes % 1.0 H (0-0) % Neutrophils # (Manual) 11.9 H (1.8-7.7) T/MM3 Band Neutrophils # 2.0 T/MM3 Lymphocytes # (Manual) 0.5 L (1-4.8) T/MM3 Monocytes # (Manual) 0.9 H (0-0.8) T/MM3 Metamyelocytes # 0.2 T/MM3 Poikilocytosis 1+ Anisocytosis 1+ RBC Morph Comment Abnormal Turbidity < 20 (0-20) Sodium 140 (134-144) MEQ/L Potassium 4.5 (3.6-5) MEQ/L Chloride 102 (98-107) MEQ/L Carbon Dioxide 26 (22-30) MEQ/L Anion Gap 12 (5-15) meq/L BUN 18.0 (9-20) MG/DL Creatinine 0.7 L (0.8-1.5) mg/dL GFR Calculation 107 BUN/Creatinine Ratio 26 (6-26) RATIO Glucose 151 H (75-110) MG/DL Calculated Osmolality 274 (261-280) MOSM/KG Calcium 9.2 (8.4-10.2) MG/DL Icterus Index < 2 (0-7) C-Reactive Protein 58.1 H (0-9) mg/L Plasma Lactate 1.4 (0.6-2.2) MMOL/L Specimen Hemolysis < 15 (0-25) Ur Collection Type Urine, void-cc/notcc Urine Color Yellow (YELLOW) Urine Clarity Clear Urine pH 7.0 (5.0-8.0) Ur Specific [place] 1.020 (1.015-1.025) Urine Protein Negative (NEGATIVE) Urine Glucose (UA) Negative (NEGATIVE) Urine Ketones Negative (NEGATIVE) Urine Occult Blood Trace-intact (NEGATIVE) Urine Nitrate Negative (NEGATIVE) Urine Bilirubin Negative (NEGATIVE) Urine Urobilinogen 0.2 (NORMAL) EU/DL Ur Leukocyte Esterase Negative (NEGATIVE) Urinalysis Comment Microscopic not ind. - Radiology Data Attestation: I reviewed the patient's radiology results. - EKG Data EKG #1 EKG attestation: Yes: I reviewed and interpreted this EKG. EKG shows normal: sinus rhythm Mason/QRS: IVCD Heart block present: 1st Degree When compared to previous EKG there are: no significant changes Interpretation: no acute changes, unchanged when compared to prior tracing (date ) (Jun 2017) Disposition Prescriptions: No Action Cholecalciferol (Vitamin D3) [Vitamin D3] 1,000 unit PO DAILY Arginine [l-Arginine] 500 mg PO DAILY Ubidecarenone [Co Q-10] 200 mg PO DAILY Saw [place] 160 mg PO DAILY Multivitamin [One Daily] 1 tab PO DAILY [place]-3/Dha/Epa/Fish Oil [Fish Oil 1,360 mg Softgel] 1,360 mg PO DAILY Calcium Carb/D3/Magnesium/Zinc [Uefhwra-Dst-Qizo-Vit D Tablet] 1 tab PO DAILY Dorzolamide Eye Drops [Trusopt] 1 drop RIGHT EYE BID Rivaroxaban [Xarelto] 20 mg PO WS Losartan Potassium [Cozaar] 50 mg PO DAILY Flecainide [Tambocor] 50 mg PO BID Carboxymethylcellulose O/S [Refresh Celluvisc] 1 drop LEFT EYE 6XD PRN PRN Reason: Prn Orders Vit A/C/E AC/Znox/Cupric Oxide [Eye Vitamin-Minerals Tablet] 1 tab PO DAILY Betaxolol 0.5% Eye Drops [Betoptic] 1 drop RIGHT EYE BID Ferrous Sulfate [Iron] 325 mg PO DAILY Referrals: Adam Vegas MD [Primary Care Provider] -
[2017-09-25] MEDS ORDERED: NS FLUSH BAG 500ml IV PRN (19:52)
[2017-09-25] MEDS: SALINE FLUSH 10ml SYRINGE IVF PRN (19:52)
[2017-09-25] MEDS ORDERED: HYDROCODONE/APAP 5mg/325mg TABLET PO PRN (21:39)
[2017-09-25] MEDS ORDERED: SENNA + DOCUSATE TABLET PO PRN (21:39)
[2017-09-25] MEDS ORDERED: ONDANSETRON 4 MG/2 ML INJECTION IVP PRN (21:39)
--- NOTE | 2017-09-25 22:03 | XRay Report ---
INDICATION: Fever PROCEDURE: CHEST 2-VIEWS UPRIGHT (PA & LAT) Encounter: Initial COMPARISON: Chest CT dated August 27, 2017 FINDINGS: Diffuse pulmonary metastatic disease is again noted. No definite focal pneumonia. No pneumothorax or pleural effusion. Cardiac silhouette remains enlarged. Mediastinal contours and pulmonary vascularity are grossly stable. Old bilateral rib deformities. Impression: No focal pneumonia or overt congestive failure. .
[2017-09-25] MEDS: CEFEPIME 1 GM in NS 100 ML IV SCH (22:24)
[2017-09-25 23:00] VITALS: BMI 24.7
--- NOTE | 2017-09-25 23:10 | History & Physical Report ---
History of Present Illness Date: 09/25/17 Chief complaint: fevers HPI: The pt is a 87 yo who is undergoing treatment for pancreatic cancer who presents to the ER c/o fevers at home which started today. 4 days ago he did have pain in his right arm, but resolved and today had pain in his left arm starting in his wrist radiating to his neck. He denies any SOB, cough, rash, N/ V/ diarrhea, STEVENS, dizziness, sore throat, Review of Systems All systems PM: 10-point ROS was reviewed, no additional remarkable complaints except - Constitutional Constitutional: Present: as per HPI, fever(s). Absent: fatigue, headache(s) - Cardiovascular Cardiovascular: Absent: chest pain - Respiratory Respiratory: Absent: cough, dyspnea - Gastrointestinal Gastrointestinal: Absent: abdominal pain Past Medical History Medical History: Medical History (Last Updated 09/18/17 @ 11:17 by Leslie Lucero APRN) Polio (Acute) TIA (transient ischemic attack) (Acute) Stroke (Acute) Atrial fibrillation assisted current use of anticoagulant Pancreatic cancer Medical History Updates: -history of TIA's. -syncopeal spells of uncertain etiology. -atrial fibrillation. -hypertension. -post polio syndrome. - osteoarthritis. -glaucoma. 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 -right ankle ORIF 2015. -colonoscopy 2012. - hernia repair. -tonsillectomy Family History: Family History (Last Updated 09/18/17 @ 11:19 by Leslie Lucero APRN) Father Cancer of lung Mother Stroke Sister Cancer of breast Family History: No Significant Family History - Social History Smoking status: Never smoker Medications Home Medications Medication Instructions Recorded Confirmed Type Arginine [l-Arginine] 500 mg PO DAILY 05/13/17 09/25/17 History Calcium Carb/D3/Magnesium/Zinc 1 tab PO DAILY 05/13/17 09/25/17 History [Ofvgdiq-Sfz-Igta-Vit D Tablet] Cholecalciferol (Vitamin D3) 1,000 unit PO DAILY 05/13/17 09/25/17 History [Vitamin D3] Dorzolamide Eye Drops [Trusopt] 1 drop RIGHT EYE BID 05/13/17 09/25/17 History Flecainide [Tambocor] 50 mg PO BID 05/13/17 09/25/17 History Losartan Potassium [Cozaar] 50 mg PO DAILY 05/13/17 09/25/17 History Multivitamin [One Daily] 1 tab PO DAILY 05/13/17 09/25/17 History [place]-3/Dha/Epa/Fish Oil [Fish Oil 1,360 mg PO DAILY 05/13/17 09/25/17 History 1,360 mg Softgel] Rivaroxaban [Xarelto] 20 mg PO WS 05/13/17 09/25/17 History Saw [place] 160 mg PO DAILY 05/13/17 09/25/17 History Ubidecarenone [Co Q-10] 200 mg PO DAILY 05/13/17 09/25/17 History Betaxolol 0.5% Eye Drops [Betoptic] 1 drop RIGHT EYE BID 07/05/17 09/25/17 History Carboxymethylcellulose O/S 1 drop LEFT EYE 6XD PRN 07/05/17 09/25/17 History [Refresh Celluvisc] Ferrous Sulfate [Iron] 325 mg PO DAILY 09/25/17 09/25/17 History Vit A/C/E AC/Znox/Cupric Oxide 1 tab PO DAILY 09/25/17 09/25/17 History [Eye Vitamin-Minerals Tablet] Allergies Allergy/AdvReac Type Severity Reaction Status Date / Time No Known Drug Allergies Allergy Unknown Verified 09/25/17 19:52 Exam Vital Signs: Temperature 99.3 F 09/25/17 22:03 Pulse Rate 88 09/25/17 22:03 Respiratory Rate 20 09/25/17 22:03 Blood Pressure 165/93 H 09/25/17 22:03 Pulse Oximetry 96 09/25/17 22:03 Height/Weight/BMI: Height 1.78 m Weight 78.1 kg Body Mass Index 24.7 - Constitutional Present: no acute distress - Routine HEENT Exam Eye: Present: EOMI, PERRL - Routine Respiratory Exam Present: CTA bilaterally - Routine Cardiovascular Exam Present: RRR, no murmur - Routine Abdominal Exam Present: soft, normoactive bowel sounds, non tender - Routine Extremities Exam Present: no edema, non tender Results - Labs CBC & Chem 7: 09/25/17 19:46 09/25/17 19:46 Assessment and Plan (1) Fever and neutropenia Current visit: Yes Status: Acute (2) 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 Oncology Edy recommended admission. No source of infection at this time, repeat labs in am. GI Prophylaxis: Protonix - Physician Narrative Narrative: Date: 09/25/17 Time: 2304 Hospital Course Summary Disclaimer: The visit summary below is not to be considered part of the above Progress Note.
[2017-09-26] MEDS: FLECAINIDE 50 MG TABLET PO SCH ×2 (08:40→20:26)
[2017-09-26] MEDS: CEFEPIME 1 GM in NS 100 ML IV SCH ×2 (08:41→20:38)
[2017-09-26] MEDS ORDERED: ENOXAPARIN 40 MG/0.4 ML INJECTION SQ SCH (09:00)
[2017-09-26] MEDS: LOSARTAN 50 MG TABLET PO SCH (10:14)
--- NOTE | 2017-09-26 10:34 | XRay Report ---
Indication: elbow pain PROCEDURE: XR elbow LT min 3V: Encounter: Initial Comparison: None Findings: No definite acute fracture or dislocation. There is evidence of old trauma and degenerative change with mild deformity of the radial head and ring osteophytes present. There are also osteophytes arising from the olecranon process and coronoid process of the proximal ulna. There is adjacent soft tissue swelling surrounding the elbow joint without definite elbow joint effusion. Impression: No acute fracture. Advanced degenerative changes. .
--- NOTE | 2017-09-26 12:19 | Consult Note ---
<Katiuska Skinner - Last Filed: 09/26/17 14:52> Oncology HPI - Data of Consult Patient: known to practice within the last 3 years Consult date: 09/26/17 Requesting Physician: Romina Hernandez MD Primary Care Provider: Adam Vegas MD - Consult Narrative Reason for consult: Pancreatic CA History of present illness: 87-year-old male, well-known to Dr. Snow with recent diagnosis pancreatic cancer with lung metastasis 07/2017 presented to [facility] emergency room 09/25 with complaint of fever, night sweats and intermittent right arm pain, relieved with Tylenol. He was admitted and empiric antibiotics started. Has had chemotherapy-induced neutropenia; has been receiving G-CSF/ Zarxio, last given 09/19/17. Patient with history atrial fibrillation, was on Xarelto. This is being held secondary to thrombocytopenia. In past 24 hours he complains of pain and swelling left elbow. No acute injury. Consult with orthopaedics done today. At time of intake, or reclining in hospital bed, at bedside. Denies fever in past 24 hours. Denies headache, vision changes. Denies sore throat or earache. Has had shortness of air with exertion, intermittent cough for the past week, productive of sputum; unsure of the color because he swallows it. Feels cough is improving. No nausea/vomiting, no diarrhea or constipation. Ate 75% of offered lunch today. Reports normal stool today. Arm pain as noted previously, no other aches or pains. History of present illness 06/10/17: Fall with closed head injury 07/05/17: Hospitalized with leukopenia. Found to have lung nodules. Positive for influenza. CA 19 9 elevated at 258 07/10/17: CT scan with mass within pancreatic body 07/12/17: PET scan with abnormality in the pancreas, mediastinal lymph nodes, multiple lung nodules 08/02/17: Upper EUS with biopsy showing adenocarcinoma compatible with pancreatic adenocarcinoma 09/09/17: Neutropenia from chemotherapy with ANC of 900. Added G-CSF. 09/16/17: Thrombocytopenia. Platelets today 74K. Reduce dose of gemcitabine for this visit to 75% or 750 mg/m. Review of Systems - Constitutional Constitutional: Present: fatigue, fever(s), weakness - EENT Eyes: Absent: change in vision Ears: Absent: ear pain Mouth/Throat: Absent: pain, sore throat - Cardiovascular Cardiovascular: Present: dyspnea on exertion. Absent: chest pain, palpitations - Respiratory Respiratory: Present: cough, dyspnea on exertion. Absent: wheezing - Gastrointestinal Gastrointestinal: Absent: nausea, vomiting - Genitourinary Genitourinary: Absent: dysuria, hematuria - Musculoskeletal Musculoskeletal: Present: as per HPI (intermittent left arm pain. Now with right elbow pain/swelling) - Neurological Neurological: Absent: headache(s), loss of vision - Psychiatric Psychiatric: Absent: depression - Hematologic/Lymphatic Hematologic/Lymphatic: Present: as per HPI [facility] Patient Stated Medical History Syncope Yes: when over worked or stressed Transient Ischemic Attacks ( Yes TIA) Cataracts Yes: Bilateral Glaucoma Yes Angina Yes Hypertension Yes Other Cardiology Yes: afib Hiatal Hernia Yes Hx Incontinence Yes Hx Urinary Tract Infection Yes Other troubles urinating at times, enlarged prostate Other Hematologic Yes: Daily Xarelto Other Musculoskeletal Yes: Polio Other Yes: skin cancer removed Clinic Medical History (Last Updated 09/18/17 @ 11:17 by Leslie Lucero APRN) Polio (Acute Medical) TIA (transient ischemic attack) (Acute Medical) Stroke (Acute Medical) 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 -syncopeal spells of uncertain etiology. -atrial fibrillation. -hypertension. -post polio syndrome. - osteoarthritis. -glaucoma. 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 -right ankle ORIF 2015. -colonoscopy 2012. - hernia repair. -tonsillectomy Family History: Family History (Last Updated 09/18/17 @ 11:19 by Leslie Lucero APRN) Father Cancer of lung Mother Stroke Sister Cancer of breast Family History Updates: -father had lung cancer. -mother had vericose veins, stroke. -paternal grandfather had CAD. -siblings have vericose veins - Social History Smoking status: Never smoker Substance use type: does not use Alcohol intake: never Alcohol intake frequency: does not drink Housing: other Household members: spouse Current occupational status: retired Current residence: Apartment/Private Home Medications Home Medications Medication Instructions Recorded Confirmed Type Arginine [l-Arginine] 500 mg PO DAILY 05/13/17 09/25/17 History Calcium Carb/D3/Magnesium/Zinc 1 tab PO DAILY 05/13/17 09/25/17 History [Byzpcdf-Znx-Yshf-Vit D Tablet] Cholecalciferol (Vitamin D3) 1,000 unit PO DAILY 05/13/17 09/25/17 History [Vitamin D3] Dorzolamide Eye Drops [Trusopt] 1 drop RIGHT EYE BID 05/13/17 09/25/17 History Flecainide [Tambocor] 50 mg PO BID 05/13/17 09/25/17 History Losartan Potassium [Cozaar] 50 mg PO DAILY 05/13/17 09/25/17 History Multivitamin [One Daily] 1 tab PO DAILY 05/13/17 09/25/17 History [place]-3/Dha/Epa/Fish Oil [Fish Oil 1,360 mg PO DAILY 05/13/17 09/25/17 History 1,360 mg Softgel] Rivaroxaban [Xarelto] 20 mg PO WS 05/13/17 09/25/17 History Saw [place] 160 mg PO DAILY 05/13/17 09/25/17 History Ubidecarenone [Co Q-10] 200 mg PO DAILY 05/13/17 09/25/17 History Betaxolol 0.5% Eye Drops [Betoptic] 1 drop RIGHT EYE BID 07/05/17 09/25/17 History Carboxymethylcellulose O/S 1 drop LEFT EYE 6XD PRN 07/05/17 09/25/17 History [Refresh Celluvisc] Ferrous Sulfate [Iron] 325 mg PO DAILY 09/25/17 09/25/17 History Vit A/C/E AC/Znox/Cupric Oxide 1 tab PO DAILY 09/25/17 09/25/17 History [Eye Vitamin-Minerals Tablet] Allergies Allergy/AdvReac Type Severity Reaction Status Date / Time No Known Drug Allergies Allergy Unknown Verified 09/25/17 19:52 Exam Vital signs: Temperature 99.3 F 09/26/17 07:51 Pulse Rate 68 09/26/17 10:24 Respiratory Rate 18 09/26/17 07:51 Blood Pressure 139/76 09/26/17 07:51 Pulse Oximetry 97 09/26/17 07:51 Narrative: Generic Name Dose Route Start Last Admin Trade Name Freq PRN Reason Stop Dose Admin Acetaminophen 650 mg 09/25/17 21:39 09/26/17 13:09 Tylenol PO 650 mg Q5H PRN Administration Discomfort Hydrocodone Bitart/Acetaminophen 1 tab 09/25/17 21:39 [place] 5/325 PO Q6H PRN Pain Artificial Tears 1 drop 09/26/17 09:58 Refresh Celluvisc LEFT EYE 6XD PRN PRN orders Betaxolol HCl 1 drops 09/26/17 21:00 Betoptic RIGHT EYE BID ROSALINO Dorzolamide HCl 1 drops 09/26/17 21:00 Trusopt RIGHT EYE BID ROSALINO Ferrous Sulfate 324 mg 09/27/17 08:00 Feosol PO WB ROSALINO Flecainide Acetate 50 mg 09/26/17 09:00 09/26/17 08:40 Tambocor PO 50 mg BID ROSALINO Administration Cefepime HCl 1 gm/ Sodium 100 mls @ 200 mls/hr 09/25/17 21:39 09/26/17 08:41 Chloride IV 200 mls/hr Q12H ROSALINO Administration Losartan Potassium 50 mg 09/26/17 10:00 09/26/17 10:14 Cozaar PO 50 mg DAILY ROSALINO Administration Ondansetron HCl 4 mg 09/25/17 21:39 Zofran IVP Q6H PRN Nausea &/or vomiting Senna/Docusate Sodium 1 tab 09/25/17 21:39 Senna Plus Tablet PO BID PRN Constipation Sodium Chloride 10 - 80 ml 09/25/17 19:34 09/26/17 14:19 Iv Flush IVF 10 ml PRN PRN Administration [place] Sodium Chloride 500 ml 09/25/17 19:52 09/25/17 19:53 Normal Saline IV 500 ml PRN PRN Administration Discontinued Medications Generic Name Dose Route Start Last Admin Trade Name Freq PRN Reason Stop Dose Admin Enoxaparin Sodium 40 mg 09/26/17 09:00 Lovenox SQ DAILY ROSALINO Cefepime HCl 1 gm/ Sodium 100 mls @ 200 mls/hr 09/25/17 19:34 09/25/17 20:57 Chloride IV 09/25/17 20:03 Infused O ONE Infusion Sodium Chloride 1,000 mls @ 1,000 mls/hr 09/25/17 19:34 09/25/17 20:58 Normal Saline IV 09/25/17 20:33 Infused .Q1H ONE Infusion Sodium Chloride 1,000 mls @ 999.9 mls/hr 09/25/17 20:49 09/25/17 21:55 Normal Saline IV 09/25/17 21:48 Infused .Q1H ONE Infusion Lidocaine HCl 1 ml 09/26/17 13:52 Xylocaine-Mpf 1% INJ 09/26/17 13:53 O ONE Rivaroxaban 20 mg 09/26/17 17:30 Xarelto PO WS ROSALINO - Constitutional no acute distress, cooperative - Routine HEENT Exam Head: Present: normocephalic Eye: Present: EOMI ENT: Present: mucous membranes moist - Routine Neck Exam Present: supple. Absent: lymphadenopathy - Routine Respiratory Exam Present: crackles (mild, bibasilar). Absent: wheezes - Routine Cardiovascular Exam Present: RRR, no murmur - Routine Abdominal Exam Present: soft, normoactive bowel sounds. Absent: mass - Routine Extremities Exam Present: no edema - Routine Back/Spine/Pelvis Exam Back/Spine: Present: kyphosis. Absent: vertebral tenderness - Routine Skin Exam Present: intact, dry. Absent: petechiae - Routine Neurological Exam Present: alert, oriented X3 - Routine Psychiatric Exam Present: normal affect, cooperative Oncology Results - Labs CBC & Chem 7: 09/26/17 04:54 09/26/17 04:54 Labs: Short CBC 09/26/17 Range/Units 04:54 WBC 14.1 H (4.5-11.0) T/MM3 Hgb 11.7 L (13.5-17.5) GM/DL Hct 34.7 L (41-53) % Plt Count 101 L (130-400) T/MM3 BMP 09/26/17 04:54 Sodium 139 Potassium 4.3 Chloride 105 Carbon Dioxide 25 BUN 13.0 Creatinine 0.6 L Glucose 119 H Calcium 8.8 Cardiac Enzymes 09/26/17 Range/Units 04:54 Troponin I < 0.012 (0-0.12) ng/ml - Impressions Date of Exam: 09/26/17 Ordering Provider: Tevin Lorenzo Type of Exam(s): XR elbow LT min 3V Reason for Exam(s): elbow pain Indication: elbow pain PROCEDURE: XR elbow LT min 3V: Encounter: Initial Comparison: None Findings: No definite acute fracture or dislocation. There is evidence of old trauma and degenerative change with mild deformity of the radial head and ring osteophytes present. There are also osteophytes arising from the olecranon process and coronoid process of the proximal ulna. There is adjacent soft tissue swelling surrounding the elbow joint without definite elbow joint effusion. Impression: No acute fracture. Advanced degenerative changes. . Date of Exam: 09/26/17 Ordering Provider: Romina Hernandez MD Type of Exam(s): CT head/brain wo con Reason for Exam(s): arm weakness, hx of tia Indication: arm weakness, hx of tia PROCEDURE: CT head/brain wo con: Encounter: Initial Comparison: Head CT dated August 06, 2015 and brain MRI dated June 10, 2017 Technique: Axial CT images through the head were performed without contrast. Iterative Reconstruction dose reducing technique was utilized. FINDINGS: The ventricles are stable. There are scattered areas of low attenuation in the white matter which most likely represent changes from chronic microvascular ischemia. The brainstem, cerebellum, and cerebral hemispheres otherwise have a normal morphology and CT attenuation. There is no evidence of midline displacement. No hemorrhage, signs of acute territorial stroke, mass effect, mass lesions, or edema is evident. The visualized portions of the skull base, midface, and calvarium demonstrate no abnormality. The paranasal sinuses are well aerated and free of significant disease. The tympanic and mastoid cavities appear normal. IMPRESSION: No acute intracranial abnormality or hemorrhage. Date of Exam: 09/25/17 Ordering Provider: Mynor Miller DO Type of Exam(s): XR chest 2V Reason for Exam(s): Fever INDICATION: Fever PROCEDURE: CHEST 2-VIEWS UPRIGHT (PA & LAT) Encounter: Initial COMPARISON: Chest CT dated August 27, 2017 FINDINGS: Diffuse pulmonary metastatic disease is again noted. No definite focal pneumonia. No pneumothorax or pleural effusion. Cardiac silhouette remains enlarged. Mediastinal contours and pulmonary vascularity are grossly stable. Old bilateral rib deformities. Impression: No focal pneumonia or overt congestive failure. . Assessment and Plan Assessment and Plan: 1. 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 Current palliative treatment Gemzar, last given 09/16/17, cycle 1 day 15. Chemotherapy-induced neutropenia/thrombocytopenia. On G-CSF, last dose 09/19/17. 2. Fever/immunosuppressed patient. He is on empiric antibiotics. Blood cultures drawn, results pending 3. Acute pain/swelling/ erythema left elbow. Consultation with Dr. Tevin Lorenzo done; planning left elbow aspiration tomorrow, nothing by mouth after midnight. 4. Multiple comorbidities, paroxysmal atrial fibrillation/previous anticoagulation was a relative, on hold secondary to thrombocytopenia. Osteoarthritis, history total knee replacement 2 Plan Continue empiric antibiotics, supportive care, follow counts. Add LDH, magnesium today's labs. Dr. Snow to see later today. <Sudheer Snow - Last Filed: 09/26/17 20:38> Oncology HPI - Data of Consult Requesting Physician: Romina Hernandez MD Primary Care Provider: Adam Vegas MD - Consult Narrative History of present illness: Last G-CSF was 09/23/14 when his white count was 4100. Xarelto is been held since 09/16/16 secondary to thrombocytopenia [facility] Patient Stated Medical History Syncope Yes: when over worked or stressed Transient Ischemic Attacks ( Yes TIA) Cataracts Yes: Bilateral Glaucoma Yes Angina Yes Hypertension Yes Other Cardiology Yes: afib Hiatal Hernia Yes Hx Incontinence Yes Hx Urinary Tract Infection Yes Other troubles urinating at times, enlarged prostate Other Hematologic Yes: Daily Xarelto Other Musculoskeletal Yes: Polio Other Yes: skin cancer removed Clinic Medical History (Last Updated 09/18/17 @ 11:17 by Leslie Lucero APRN) Polio (Acute Medical) TIA (transient ischemic attack) (Acute Medical) Stroke (Acute Medical) Atrial fibrillation (Acute Medical) skilled nursing current use of anticoagulant (Acute Medical) Pancreatic cancer (Acute Medical) Family History: Family History (Last Updated 09/18/17 @ 11:19 by Leslie Lucero APRN) Father Cancer of lung Mother Stroke Sister Cancer of breast Exam Vital signs: Temperature 99.3 F 09/26/17 15:19 Pulse Rate 68 09/26/17 17:26 Respiratory Rate 18 09/26/17 15:19 Blood Pressure 140/75 H 09/26/17 15:19 Pulse Oximetry 94 09/26/17 15:19 - Routine Extremities Exam Comments: Left elbow is swollen and red. It is painful for motion. Oncology Results - Labs CBC & Chem 7: 09/26/17 04:54 09/26/17 04:54 Labs: Short CBC 09/26/17 Range/Units 04:54 WBC 14.1 H (4.5-11.0) T/MM3 Hgb 11.7 L (13.5-17.5) GM/DL Hct 34.7 L (41-53) % Plt Count 101 L (130-400) T/MM3 BMP 09/26/17 04:54 Sodium 139 Potassium 4.3 Chloride 105 Carbon Dioxide 25 BUN 13.0 Creatinine 0.6 L Glucose 119 H Calcium 8.8 Cardiac Enzymes 09/26/17 09/26/17 Range/Units 04:54 15:57 Troponin I < 0.012 0.014 (0-0.12) ng/ml Assessment and Plan Assessment and Plan: Patient examined, chart reviewed, I participate in the development of the plan of care this patient. Cancer of the pancreas on gemcitabine weekly. Treatments are given day 1 8 and 15 with the day 15 treatment being given on 09/16 with dose being reduced secondary to thrombocytopenia. G-CSF was added with day 8 therapy and Gemzar dose was reduced by 25% on day 15 secondary to thrombocytopenia. Currently doing well with therapy. Last G CSF was given on when WBC 4.1 2. Febrile illness with swelling of the left elbow worrisome for septic arthritis. Joint tap earlier today by orthopedics. Will provide supportive care follow Jyoti and add G-CSF if counts are low.
--- NOTE | 2017-09-26 12:23 | CT Scan Report ---
Indication: arm weakness, hx of tia PROCEDURE: CT head/brain wo con: Encounter: Initial Comparison: Head CT dated August 06, 2015 and brain MRI dated June 10, 2017 Technique: Axial CT images through the head were performed without contrast. Iterative Reconstruction dose reducing technique was utilized. FINDINGS: The ventricles are stable. There are scattered areas of low attenuation in the white matter which most likely represent changes from chronic microvascular ischemia. The brainstem, cerebellum, and cerebral hemispheres otherwise have a normal morphology and CT attenuation. There is no evidence of midline displacement. No hemorrhage, signs of acute territorial stroke, mass effect, mass lesions, or edema is evident. The visualized portions of the skull base, midface, and calvarium demonstrate no abnormality. The paranasal sinuses are well aerated and free of significant disease. The tympanic and mastoid cavities appear normal. IMPRESSION: No acute intracranial abnormality or hemorrhage. .
--- NOTE | 2017-09-26 12:51 | Orthopedic Consult Note ---
Orthopedic Consultation HPI - Consultation Info Consult Date: 09/26/17 Attending Physician: Romina Hernandez MD Attending Orthopaedic surgeon: Nam Plasencia MD. Consult Reason: joint pain (left elbow) - History of Present Illness Toi Mejias is an 87 year old male who presented to the ER yesterday with chief complaint of fever. He is currently undergoing chemotherapy for pancreatic cancer under the care of Dr. Snow. Labs have been reviewed and show leukocytosis 14.1 with a left shift, elevated CRP of 73, normal UA, no evidence of pneumonia on CXR (diffuse pulmonary metastatic disease noted) , normal uric acid level at 5.1, and a most recent temp of 99.3 F with stable vital signs. He was admitted under the care of the hospitalist team who has started him on Cefepime. He is known to have A-fib, thrombocytopenia, CAD with new chest pain, and being worked up for a stroke. Troponin has been normal thus far, CT head has been completed. His indicates he has had a fever over 100 degrees at home. ER notes indicated that he was treated with Granix, ( GCSF) two days prior to admission for neutropenia. Orthopaedics was consulted for chief complaint of left elbow pain. Onset was with no known injury. He locates pain generally over the elbow. Pain seems a little worse with ROM. It's been better with rest. Their is associated mild erythema and edema of the elbow. He does not recall previous injuries or surgeries to the elbow. He has been noted to be a questionable historian. His does aid in the history. He is known to have severe generalized OA. X-rays of the elbow have been reviewed which show no acute fracture and severe degenerative changes. No obvious effusion or fat pad signs were seen. He denies any previous history of gout. He did note a similar presentation of Right elbow pain last Saturday which resolved on it's own. He did self treat the right side with Tylenol. Review of Systems - Constitutional Constitutional: Present: fatigue, fever(s). Absent: headache(s) - EENT Eyes: Absent: change in vision Ears, nose, mouth, throat: Absent: ear pain - Cardiovascular Cardiovascular: Present: chest pain (hospitalist service aware) Vascular: Absent: pallor of an extermity - Respiratory Respiratory: Absent: wheezing - Gastrointestinal Gastrointestinal: Absent: diarrhea - Genitourinary Genitourinary General: Present: other (possible dysuria) - Musculoskeletal Musculoskeletal: Present: as per HPI, tenderness, joint pain - Integumentary/Breasts Integumentary: Absent: wounds - Neurological Neurological: Present: change in strength [facility] Patient Stated Medical History Syncope Yes: when over worked or stressed Transient Ischemic Attacks ( Yes TIA) Cataracts Yes: Bilateral Glaucoma Yes Angina Yes Hypertension Yes Other Cardiology Yes: afib Hiatal Hernia Yes Hx Incontinence Yes Hx Urinary Tract Infection Yes Other troubles urinating at times, enlarged prostate Other Hematologic Yes: Daily Xarelto Other Musculoskeletal Yes: Polio Other Yes: skin cancer removed Clinic Medical History (Last Updated 09/18/17 @ 11:17 by Leslie Lucero APRN) Polio (Acute Medical) TIA (transient ischemic attack) (Acute Medical) Stroke (Acute Medical) Atrial fibrillation (Acute Medical) retirement current use of anticoagulant (Acute Medical) Pancreatic cancer (Acute Medical) Medical History Updates: -history of TIA's. -syncopeal spells of uncertain etiology. -atrial fibrillation. -hypertension. -post polio syndrome. - osteoarthritis. -glaucoma. 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 -right ankle ORIF 2015. -colonoscopy 2012. - hernia repair. -tonsillectomy Family History: Family History (Last Updated 09/18/17 @ 11:19 by Leslie Lucero APRN) Father Cancer of lung Mother Stroke Sister Cancer of breast Family History Updates: -father had lung cancer. -mother had vericose veins, stroke. -paternal grandfather had CAD. -siblings have vericose veins - Social History Smoking status: Never smoker Substance use type: does not use Alcohol intake: never Alcohol intake frequency: does not drink Housing: other Household members: spouse Current occupational status: retired Current residence: Apartment/Private Home Medications Home Medications Medication Instructions Recorded Confirmed Type Arginine [l-Arginine] 500 mg PO DAILY 05/13/17 09/25/17 History Calcium Carb/D3/Magnesium/Zinc 1 tab PO DAILY 05/13/17 09/25/17 History [Qtthlci-Mpj-Vdvk-Vit D Tablet] Cholecalciferol (Vitamin D3) 1,000 unit PO DAILY 05/13/17 09/25/17 History [Vitamin D3] Dorzolamide Eye Drops [Trusopt] 1 drop RIGHT EYE BID 05/13/17 09/25/17 History Flecainide [Tambocor] 50 mg PO BID 05/13/17 09/25/17 History Losartan Potassium [Cozaar] 50 mg PO DAILY 05/13/17 09/25/17 History Multivitamin [One Daily] 1 tab PO DAILY 05/13/17 09/25/17 History Jackson-3/Dha/Epa/Fish Oil [Fish Oil 1,360 mg PO DAILY 05/13/17 09/25/17 History 1,360 mg Softgel] Rivaroxaban [Xarelto] 20 mg PO WS 05/13/17 09/25/17 History [place] 160 mg PO DAILY 05/13/17 09/25/17 History Ubidecarenone [Co Q-10] 200 mg PO DAILY 05/13/17 09/25/17 History Betaxolol 0.5% Eye Drops [Betoptic] 1 drop RIGHT EYE BID 07/05/17 09/25/17 History Carboxymethylcellulose O/S 1 drop LEFT EYE 6XD PRN 07/05/17 09/25/17 History [Refresh Celluvisc] Ferrous Sulfate [Iron] 325 mg PO DAILY 09/25/17 09/25/17 History Vit A/C/E AC/Znox/Cupric Oxide 1 tab PO DAILY 09/25/17 09/25/17 History [Eye Vitamin-Minerals Tablet] Allergies Allergy/AdvReac Type Severity Reaction Status Date / Time No Known Drug Allergies Allergy Unknown Verified 09/25/17 19:52 Exam - Constitutional Vital Signs: Temperature 99.3 F 09/26/17 07:51 Pulse Rate 68 09/26/17 10:24 Respiratory Rate 18 09/26/17 07:51 Blood Pressure 139/76 09/26/17 07:51 Pulse Oximetry 97 09/26/17 07:51 General: cooperative, healthy appearing, no acute distress Nutritional Appearance: average body habitus Orientation: alert - Psych Mood: normal Affect: normal Attitude: cooperative - LUE Postoperative Appearance: extremity compartments are soft and nontender Skin: no rashes or lesions noted, erythema, other (generalized left elbow swelling, warm to touch) Range of Motion: left elbow extends to 30 degrees and flexes to approximately 120. Neurological: no deficits, normal to light touch Vascular: radial pulse within normal limits, ulnar pulse within normal limits, capillary refill <2 seconds - RLE Postoperative Appearance: surgical incision well healed Skin: no lesions - Respiratory Respiratory Exam: non-labored - Cardiac Cardiovascular exam: pedal pulses intact - Labs Result Diagrams: 09/26/17 04:54 09/26/17 04:54 Abnormal lab results 09/26/17 09/26/17 Range/Units 04:54 04:54 WBC 14.1 H (4.5-11.0) T/MM3 RBC 3.47 L (4.50-5.90) M/MM3 Hgb 11.7 L (13.5-17.5) GM/DL Hct 34.7 L (41-53) % Plt Count 101 L (130-400) T/MM3 Neutrophils % (Manual) 87.0 H (33-66) % Lymphocytes % (Manual) 5.0 L (23-45) % Neutrophils # (Manual) 12.3 H (1.8-7.7) T/MM3 Lymphocytes # (Manual) 0.7 L (1-4.8) T/MM3 Creatinine 0.6 L (0.8-1.5) mg/dL Glucose 119 H (75-110) MG/DL C-Reactive Protein 73.2 H (0-9) mg/L H & H 09/26/17 Range/Units 04:54 Hgb 11.7 L (13.5-17.5) GM/DL Hct 34.7 L (41-53) % - Diagnostic results Elbow x-ray: report reviewed, image reviewed (significant degenerative changes with loss of joint space and osteophtes present. ) Impression and Recommendation (1) Osteoarthritis of left elbow Current visit: Yes Status: Acute (2) Pain and swelling of left elbow Current visit: Yes Status: Acute 1. Left elbow joint aspiration to evaluate for septic joint. We will allow him to eat today, but will make him NPO after midnight just in case he needs to have the elbow washed out. Other thoughts for differential diagnosis: severe OA, drug reaction to GCSF, gout, crystalline arthropathy. Fracture has been ruled out with X-ray. Procedure: Using strict sterile technique the left elbow was prepped with Chlorhexidine and sterily draped. Using a lateral approach, 10 ml of 1% Lidocaine was injected into the soft tissue and joint. Then, using an 18 gauge needle on a 20ml syringe the joint was aspirated. 5ml of bloody, serosanguineous fluid was obtained. Approximately 1ml was placed in a purple top lab tube. The syringe and tube were labeled and sent to the lab. Hospital Course Summary Disclaimer: The visit summary below is not to be considered part of the above Progress Note.
[2017-09-26] MEDS: ACETAMINOPHEN 325 MG TABLET PO PRN (13:09)
[2017-09-26] MEDS ORDERED: LIDOCAINE 1% (10mg/ml) 30ml SDV INJ INJ ONE (13:52)
[2017-09-26] MEDS: SALINE FLUSH 10ml SYRINGE IVF PRN (14:19)
[2017-09-26] MEDS ORDERED: RIVAROXABAN 20 MG TABLET PO SCH (17:30)
[2017-09-26] MEDS: BETAXOLOL 0.5% RIGHT EYE SCH (20:24)
[2017-09-26] MEDS: DORZOLAMIDE 2% EYE DROPS 10ml RIGHT EYE SCH (20:35)
[2017-09-27] MEDS ORDERED: LIDOCAINE 1% (10mg/ml) 30ml SDV INJ INJ PRN (08:00)
--- NOTE | 2017-09-27 08:14 | Orthopedic Progress Note ---
Date: Date: 09/27/17 Time: 809 Subjective/Severity of Illness: Mr. Mejias states his elbow feels better today. He has been NPO in case I & D was needed. Dr. Plasencia and myself have reviewed the synovial fluid cell counts and cultures. Cultures are negative thus far, cell counts show 3,035 nucleated cells. Keeping in mind his immunocompromise status and his present improvement Dr. Plasencia would like to observe him one more day on antibiotics and reconsider options. Orthopedic Exam Vital signs: Temperature 99.0 F 09/27/17 07:31 Pulse Rate 70 09/27/17 07:31 Respiratory Rate 16 09/27/17 07:31 Blood Pressure 128/69 09/27/17 07:31 Pulse Oximetry 93 09/27/17 07:31 - Constitutional General Appearance: Present: alert, orientated x3 (he does tell me the same stories multiple times, but does know who I am.), no acute distress - Respiratory Exam Present: non-labored - Cardiovascular Exam Present: pedal pulses intact Capillary Refill: < 2-3 Seconds - Extremities Exam Present: no edema. Absent: joint swelling Comments: Left elbow: Less erythemic today, less swollen and he demonstrates more AROM. End range of flexion is still painful. - Integumentary Exam Present: pink, warm, dry - Lymphatic Lymphatic: Absent: lymphedema - Neurological Exam Present: intact to light touch - Psychiatric Exam Present: alert, oriented, normal affect - Labs Result Diagrams: 09/27/17 04:33 09/27/17 04:33 Abnormal lab results 09/27/17 09/27/17 Range/Units 04:33 04:33 RBC 3.60 L (4.50-5.90) M/MM3 Hgb 12.0 L (13.5-17.5) GM/DL Hct 35.5 L (41-53) % Plt Count 116 L (130-400) T/MM3 Neutrophils % (Manual) 74.0 H (33-66) % Lymphocytes % (Manual) 13.0 L (23-45) % Creatinine 0.7 L (0.8-1.5) mg/dL H & H 09/26/17 09/27/17 Range/Units 04:54 04:33 Hgb 11.7 L 12.0 L (13.5-17.5) GM/DL Hct 34.7 L 35.5 L (41-53) % Orthopedic Assessment and Plan (1) Osteoarthritis of left elbow Status: Acute (2) Pain and swelling of left elbow Status: Acute Assessment and Plan: We will let Toi eat today. Continue antibiotics Follow cultures May used elbow as tolerated Follow up tomorrow to reassess. We will make him NPO after midnight again. Hospital Course Summary Disclaimer: The visit summary below is not to be considered part of the above Progress Note.
[2017-09-27] MEDS: SALINE FLUSH 10ml SYRINGE IVF PRN ×2 (08:57→22:00)
[2017-09-27] MEDS: FLECAINIDE 50 MG TABLET PO SCH ×2 (08:57→22:11)
[2017-09-27] MEDS: CEFEPIME 1 GM in NS 100 ML IV SCH ×2 (08:57→21:59)
[2017-09-27] MEDS: LOSARTAN 50 MG TABLET PO SCH (08:57)
[2017-09-27] MEDS: FERROUS SULFATE 324 MG TABLET PO SCH (08:57)
[2017-09-27] MEDS: BETAXOLOL 0.5% RIGHT EYE SCH ×2 (08:57→22:08)
[2017-09-27] MEDS: REFRESH CELLUVISC 1% Eye Drops 0.4ml LEFT EYE PRN (08:58)
[2017-09-27] MEDS: DORZOLAMIDE 2% EYE DROPS 10ml RIGHT EYE SCH ×2 (08:58→22:10)
--- NOTE | 2017-09-27 11:33 | Progress Note ---
- Date 09/27/17 Subjective: F/U: left elbow pain/swelling, r/o septic joint. Toi is seen this morning while resting in bed, watching TV. He reports that he is doing well and states that his left elbow pain is slightly better today. He denies any chest pain, abdominal pain, nausea, vomiting or dysuria. He does admit to mild shortness of breath when speaking "emphatically" but denies any shortness of breath or dyspnea at rest. He states that he is able to move his left arm a little better today as the pain is improved. Leukocytosis resolved ( WBC 9.0) and hemoglobin stable as are platelets. Dr. Plasencia (ortho) wants to continue to monitor as his cultures remain negative and he is showing some improvement. Persistent low grade temperature at 99.0 today. Objective Vital signs: Temperature 99.0 F 09/27/17 07:31 Pulse Rate 70 09/27/17 08:09 Respiratory Rate 16 09/27/17 07:31 Blood Pressure 128/69 09/27/17 07:31 Pulse Oximetry 93 09/27/17 07:31 Rhythm: Normal Sinus Rhythm Height/Weight/BMI: Height 5 ft 10 in Weight 169 lb 5.04 oz Body Mass Index 24.7 Comments: Resting in bed, watching TV. - Constitutional Present: no acute distress, well nourished, well developed, cooperative - Routine HEENT Exam Head: Present: normocephalic, atraumatic Eye: Present: PERRL. Absent: conjunctival icterus ENT: Present: mucous membranes moist - Routine Respiratory Exam Present: CTA bilaterally. Absent: respiratory distress, wheezes - Routine Cardiovascular Exam Present: RRR, S1, S2 - Routine Abdominal Exam Present: soft, normoactive bowel sounds, non tender - Routine Extremities Exam Present: edema (trace, L>R.), pulses intact Comments: Limited ROM to left arm due to elbow pain and swelling; mild erythema to left elbow noted. - Routine Back/Spine/Pelvis Exam Back/Spine: Absent: vertebral tenderness - Routine Musculoskeletal Exam Musculoskeletal: Present: no clubbing or cyanosis, moving extremities well - Routine Skin Exam Present: dry, warm Comments: Low grade temperature at 99.0. - Routine Neurological Exam Present: alert, oriented X3, moving all extremities, hearing grossly intact, normal speech - Routine Lymphatic Exam Lymphatic: Absent: lymphedema - Routine Psychiatric Exam Present: cooperative Results - Labs CBC & Chem 7: 09/27/17 04:33 09/27/17 04:33 Microbiology Results: Microbiology 09/26/17 16:49 Synovial Fluid, Left Elbow Gram Stain - Final 09/26/17 16:49 Synovial Fluid, Left Elbow Body Fluid Culture - Preliminary Culture Initiated - Results Pending Assessment and Plan (1) Fever and neutropenia Current visit: Yes Status: Acute (2) Pancreatic cancer metastasized to intra-abdominal lymph node Current visit: Yes Status: Acute Assessment and Plan: Impression Left elbow pain, swelling, erythema - rule out septic joint versus gout versus other Fever - possibly secondary to septic left elbow Leukocytosis (POA) - resolved Chest pain of undetermined etiology - requiring further workup Questionable left arm weakness - difficult to assess secondary to left elbow pain Recent right arm weakness which resolved - possible TIA History of TIA 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 The patient is not neutropenic Pancreatic cancer on chemotherapy Mild thrombocytopenia Anemia Chronic anticoagulation with Xarelto for paroxysmal A. fib Patient states he has been off of Xarelto for 10 days because of "low platelets" as recommended by Dr. Snow Plan Left elbow pain, swelling and erythema slowly improving. Dr. Plasencia was consulted and wants to continue to monitor. Cultures remain negative. Will continue to hold xarelto as patient may still require surgical intervention. Continue Cefepime 1g Q12 for empiric antimicrobial coverage - Day 2. Procalcitonin 0.09 on 09/26. Patient with persistent low grade temperature of 99.0. Continue to monitor closely. Labs stable. Patient IS NOT neutropenic. Uric acid stable. Serial troponins negative. CT head revealed no acute changes. Recheck labs in AM to monitor blood counts, electrolytes and renal function. DVT Prophylaxis: SCD's Resuscitation Status: Full Code - Time spent with patient Time with patient PN: 25 minutes - Physician Narrative Physician: Byron Benavides MD Narrative: Date: 09/27/17 Time: 1630 Have independently interviewed & examined pt. Chart reviewed. Case discussed with RICKY, fidelia, Dr Snow, and my PA. Care plan developed with my supervision; agree with above. Doing okay. Pain to left elbow decreased, but still hurts with movements. Breathing well-not congested or SOA. Appetite stable. No nausea or ab pain. No diarrhea (stools feel low). Lungs: clear bilaterally, no distress CV: regular AB: soft nt/nd +BS EXT: left elbow with erythema and warmth MSE: awake alert appropriate Plan: Continue with antibiotic for coverage of suspected septic elbow-ortho wants to reassess tomorrow for possible surgical debridement. Will continue to hold on Xarelto due to potential for Sx. Recheck lab in am. Continue with supportive care. Hospital Course Summary Disclaimer: The visit summary below is not to be considered part of the above Progress Note. Hospital Course: 09/25/17 Place in inpatient admission due to suspected septic left elbow. Cultures taken in the ER are pending. Will empirically place on Cefepime, monitor for changes. Recently had a dose of GCS-F 2 days ago prior to that he was neutropenic. Oncology Edy recommended admission. No source of infection at this time, repeat labs in am. 09/26/[address] Plasencia for possible septic left elbow. We may need to alter antibiotics based on findings. Check pro-calcitonin. Blood cultures were drawn on admission and are pending. Check uric acid level regarding swollen left elbow. Serial troponin and repeat EKG regarding chest pain. Telemetry. CT head regarding recent right arm weakness which has resolved. Patient has history of TIA and is on anticoagulation. Await findings from orthopedic evaluation, consider restarting Xarelto if no surgical procedures are needed and if CT of the head shows no signs of bleeding. Discussed with Dr. Snow. Okay to resume Xarelto from his standpoint with platelets of 101. Will consult Dr. Snow regarding the patient's pancreatic cancer on chemotherapy. SCDs for DVT prophylaxis. 09/27/17 Left elbow pain, swelling and erythema slowly improving. Dr. Plasencia was consulted and wants to continue to monitor. Cultures remain negative. Will continue to hold Xarelto as patient may still require surgical intervention. Continue Cefepime 1g Q12 for empiric antimicrobial coverage - Day 2. Procalcitonin 0.09 on 09/26. Patient with persistent low grade temperature of 99.0. Continue to monitor closely. Labs stable. Patient IS NOT neutropenic. Uric acid stable. Serial troponins negative. CT head revealed no acute changes.
--- NOTE | 2017-09-27 12:42 | Progress Note ---
<Katiuska Skinner L - Last Filed: 09/27/17 14:19> Oncology Subjective Reclining in hospital bed. at bedside. He is alert and oriented. Denies fever, chills, night sweats. He is eating and drinking well. Denies cough or shortness of air. Continues to have swelling/discomfort left elbow. Also complains of limited function in left hand. No diarrhea or constipation. Voiding normally General: No fever, no night sweats Eyes: No redness, no pain, no diplopia ENT: No mouth sores, no trouble swallowing Cardiac: No chest pain no palpitations Pulmonary: No cough, no shortness of breath, no wheezing Abdomen: No pain, no nausea vomiting, no diarrhea or constipation : No urgency, frequency, dysuria, or hematuria Musculoskeletal: left elbow pain/limited function of left arm Neurological: No headaches, no focal weakness Skin: No rash, no sores Psychiatric: No anxiety, no depression Exam Vital signs: Temperature 99.0 F 09/27/17 07:31 Pulse Rate 70 09/27/17 08:09 Respiratory Rate 16 09/27/17 07:31 Blood Pressure 128/69 09/27/17 07:31 Pulse Oximetry 93 09/27/17 07:31 Narrative: Generic Name Dose Route Start Last Admin Trade Name Freq PRN Reason Stop Dose Admin Acetaminophen 650 mg 09/25/17 21:39 09/26/17 13:09 Tylenol PO 650 mg Q5H PRN Administration Discomfort Hydrocodone Bitart/Acetaminophen 1 tab 09/25/17 21:39 [place] 5/325 PO Q6H PRN Pain Artificial Tears 1 drop 09/26/17 09:58 09/27/17 08:58 Refresh Celluvisc LEFT EYE 1 drop 6XD PRN Administration PRN orders Betaxolol HCl 1 drops 09/26/17 21:00 09/27/17 08:57 Betoptic RIGHT EYE 1 drops BID ROSALINO Administration Dorzolamide HCl 1 drops 09/26/17 21:00 09/27/17 08:58 Trusopt RIGHT EYE 1 drops BID ROSALINO Administration Ferrous Sulfate 324 mg 09/27/17 08:00 09/27/17 08:57 Feosol PO 324 mg WB ROSALINO Administration Flecainide Acetate 50 mg 09/26/17 09:00 09/27/17 08:57 Tambocor PO 50 mg BID ROSALINO Administration Cefepime HCl 1 gm/ Sodium 100 mls @ 200 mls/hr 09/25/17 21:39 09/27/17 08:57 Chloride IV 200 mls/hr Q12H ROSALINO Administration Losartan Potassium 50 mg 09/26/17 10:00 09/27/17 08:57 Cozaar PO 50 mg DAILY ROSALINO Administration Ondansetron HCl 4 mg 09/25/17 21:39 Zofran IVP Q6H PRN Nausea &/or vomiting Senna/Docusate Sodium 1 tab 09/25/17 21:39 09/27/17 08:57 Senna Plus Tablet PO 1 tab BID PRN Administration Constipation Sodium Chloride 10 - 80 ml 09/25/17 19:34 09/27/17 08:57 Iv Flush IVF 10 ml PRN PRN Administration [place] Sodium Chloride 500 ml 09/25/17 19:52 09/25/17 19:53 Normal Saline IV 500 ml PRN PRN Administration Discontinued Medications Generic Name Dose Route Start Last Admin Trade Name Freq PRN Reason Stop Dose Admin Enoxaparin Sodium 40 mg 09/26/17 09:00 Lovenox SQ DAILY ROSALINO Cefepime HCl 1 gm/ Sodium 100 mls @ 200 mls/hr 09/25/17 19:34 09/25/17 20:57 Chloride IV 09/25/17 20:03 Infused O ONE Infusion Sodium Chloride 1,000 mls @ 1,000 mls/hr 09/25/17 19:34 09/25/17 20:58 Normal Saline IV 09/25/17 20:33 Infused .Q1H ONE Infusion Sodium Chloride 1,000 mls @ 999.9 mls/hr 09/25/17 20:49 09/25/17 21:55 Normal Saline IV 09/25/17 21:48 Infused .Q1H ONE Infusion Lidocaine HCl 30 ml 09/27/17 08:00 Xylocaine-Mpf 1% INJ 09/27/17 14:00 PRN PRN Rivaroxaban 20 mg 09/26/17 17:30 Xarelto PO WS ROSALINO - Constitutional no acute distress, well developed, cooperative - Routine HEENT Exam Head: Present: normocephalic Eye: Present: EOMI ENT: Present: mucous membranes moist - Routine Neck Exam Present: supple. Absent: lymphadenopathy - Routine Respiratory Exam Present: CTA bilaterally - Routine Cardiovascular Exam Present: RRR, no murmur - Routine Abdominal Exam Present: soft, normoactive bowel sounds, non tender. Absent: mass - Routine Extremities Exam Present: pulses intact, tenderness, joint swelling (left elbow) - Routine Skin Exam Present: intact, dry, pallor - Routine Neurological Exam Present: alert, oriented X3 - Routine Psychiatric Exam Present: normal affect, cooperative Oncology Results - Labs CBC & Chem 7: 09/27/17 04:33 09/27/17 04:33 Labs: Short CBC 09/27/17 Range/Units 04:33 WBC 9.0 (4.5-11.0) T/MM3 Hgb 12.0 L (13.5-17.5) GM/DL Hct 35.5 L (41-53) % Plt Count 116 L (130-400) T/MM3 BMP 09/27/17 04:33 Sodium 137 Potassium 4.4 Chloride 101 Carbon Dioxide 27 BUN 12.0 Creatinine 0.7 L Glucose 102 Calcium 9.0 Cardiac Enzymes 09/26/17 09/26/17 Range/Units 15:57 21:43 Troponin I 0.014 0.013 (0-0.12) ng/ml Liver Function 09/27/17 Range/Units 04:33 Total Bilirubin 0.60 (0.20-1.30) MG/DL AST 21 (17-59) U/L ALT 12 (1-50) U/L Alkaline Phosphatase 93 (38-126) U/L Albumin 3.7 (3.5-5.0) g/dL Assessment and Plan Assessment and Plan: 1. 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 Current palliative treatment Gemzar, last given 09/16/17, cycle 1 day 15. Chemotherapy-induced neutropenia/thrombocytopenia. On G-CSF. 2. Fever/immunosuppressed patient, on empiric antibiotics. Blood cultures drawn ; neg. after one day. Highest temperature last 24 hours 99.6 3. Acute pain/swelling/ erythema left elbow. Consultation with orthopaedic done. c/o decreased functioning of left arm. 4. Multiple comorbidities, paroxysmal atrial fibrillation/anticoagulation is Xarelto/on hold secondary to thrombocytopenia. Thrombocytopenia slowly improving. 5. Osteoarthritis, history total knee replacement 2 Plan Continue empiric antibiotics, supportive care, follow counts. - Time Spent With Patient Total time spent is greater than 50% in coordination of care (as documented) at patient's floor/unit and/or counseling patient: less than 15 minutes <Sudheer Snow - Last Filed: 09/27/17 17:17> Exam Vital signs: Temperature 99.9 F 09/27/17 15:52 Pulse Rate 78 09/27/17 15:52 Respiratory Rate 18 09/27/17 15:52 Blood Pressure 117/69 09/27/17 15:52 Pulse Oximetry 93 09/27/17 15:52 - Routine Extremities Exam Comments: Left hand jack spinner and extention of fingers limited. Oncology Results - Labs CBC & Chem 7: 09/27/17 04:33 09/27/17 04:33 Labs: Short CBC 09/27/17 Range/Units 04:33 WBC 9.0 (4.5-11.0) T/MM3 Hgb 12.0 L (13.5-17.5) GM/DL Hct 35.5 L (41-53) % Plt Count 116 L (130-400) T/MM3 BMP 09/27/17 04:33 Sodium 137 Potassium 4.4 Chloride 101 Carbon Dioxide 27 BUN 12.0 Creatinine 0.7 L Glucose 102 Calcium 9.0 Cardiac Enzymes 09/26/17 Range/Units 21:43 Troponin I 0.013 (0-0.12) ng/ml Liver Function 09/27/17 Range/Units 04:33 Total Bilirubin 0.60 (0.20-1.30) MG/DL AST 21 (17-59) U/L ALT 12 (1-50) U/L Alkaline Phosphatase 93 (38-126) U/L Albumin 3.7 (3.5-5.0) g/dL Selected Entries 09/26/17 15:19 09/27/17 00:00 09/27/17 07:31 Temperature 99.3 F 99.6 F 99.0 F Laboratory Tests 09/26/17 04:54 WBC 14.1 H Hgb 11.7 L Plt Count 101 L Assessment and Plan Assessment and Plan: Patient examined Chart reviewed. I participated in the development of the plan of care of this patient. Left arm more swollen at the elbow. Dysfunction of hand with decreased jack spinner and loss of function of hand. Unsure if related to swelling , pain or nerve compromise. 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 Xarelto was on hold prior to admission secondary to thrombocytopenia but held by Dr. Hernandez for orthopedic procedures. Would consider imaging of brain and evaluation by ortho or neurology for etiology of decreased jack spinner on left. Will plan on him cancelling appointment for chemotherapy on Saturday. - Time Spent With Patient Total time spent is greater than 50% in coordination of care (as documented) at patient's floor/unit and/or counseling patient:
[2017-09-27] MEDS: ACETAMINOPHEN 325 MG TABLET PO PRN ×2 (16:12→22:07)
--- NOTE | 2017-09-28 09:32 | Orthopedic Progress Note ---
Date: Date: 09/28/17 Time: 925 Subjective/Severity of Illness: Mr. Mejias states his elbow feels better today, just stiff. Notes chronic neck pain and issues especially when laying in bed as he has thoracic kyphosis. His is bringing in his pillow to aid in his head/neck positioning. We let him eat last night as we plan to await culture finals before ruling out I&D, but at this time does not appear septic. Cultures remain negative thus far, cell counts show 3,[address] Benavides notes that the patient is not considered neutropenic so would have expected a higher cell count on aspirate if truly a septic elbow. Will to observe him on antibiotics and reconsider options. Orthopedic Exam Vital signs: Vital Signs Temp Pulse Resp BP Pulse Ox 09/28/17 07:25 97.7 F 68 18 138/70 94 09/28/17 00:20 97.9 F 64 16 107/63 92 09/28/17 00:00 70 09/27/17 18:16 99.4 F 09/27/17 16:13 78 09/27/17 15:52 99.9 F 78 18 117/69 93 Intake and Output 09/27/17 09/28/17 09/28/17 22:59 06:59 14:59 Intake Total 840 / 840 300 / 300 410 / 410 Output Total 400 / 400 Balance 840 / 840 -100 / -100 410 / 410 Intake: IV 100 / 100 Cefepime 1 gm In Ns 100 ml @ 100 / 100 200 mls/hr IV Q12H [facility] Rx#: [id number] Oral 740 / 740 300 / 300 410 / 410 Output: Urine 400 / 400 Other: Urine Appearance Clear Clear Clear Urine Color Yellow Yellow Yellow Urine Odor Normal Stool Color Brown Brown Brown Stool Consistency Soft Soft Soft Formed Loose Size of Bowel Movement Small Small # Voids 1 1 1 # Bowel Movements 1 1 1 Weight 163 lb 5.8 oz Patient Weight 09/29/17 06:59 Weight 163 lb 5.8 oz - Constitutional General Appearance: Present: alert, orientated x3 (he does tell me the same stories multiple times, but does know who I am.), no acute distress - Respiratory Exam Present: non-labored - Cardiovascular Exam Present: pedal pulses intact Capillary Refill: < 2-3 Seconds - Abdominal Exam Absent: tenderness, distended - Extremities Exam Present: edema (trace, L>R.), pulses intact - Detailed Upper Extremity Exam Elbow: Left erythema (improved), Left swelling (improved), Left tenderness (mild ), Left pain with active ROM (mild), Left pain with passive ROM (mild), Bilateral decreased ROM Hand/Fingers: Bilateral normal inspection - Integumentary Exam Present: pink, warm, dry - Lymphatic Lymphatic: Absent: lymphedema - Neurological Exam Present: intact to light touch - Psychiatric Exam Present: alert, oriented, normal affect - Labs Result Diagrams: 09/28/17 04:21 09/28/17 04:21 Abnormal lab results 09/26/17 09/28/17 09/28/17 Range/Units 16:49 04:21 04:21 RBC 3.44 L (4.50-5.90) M/MM3 Hgb 11.6 L (13.5-17.5) GM/DL Hct 34.2 L (41-53) % Immature Gran % (Auto) 2.1 H (0.0-0.5) % Neut % (Auto) 73.1 H (33-66) % Lymph % (Auto) 12.1 L (23-45) % [place] % (Auto) 11.6 H (0-9.0) % Lymph # (Auto) 0.7 L (1-4.8) T/MM3 Abs Immat Gran (auto) 0.12 H (0.00-0.03) T/MM3 Creatinine 0.7 L (0.8-1.5) mg/dL Fluid Crystal Appear Bloody A Fluid Crystal Color Red A H & H 09/26/17 09/27/17 09/28/17 Range/Units 04:54 04:33 04:21 Hgb 11.7 L 12.0 L 11.6 L (13.5-17.5) GM/DL Hct 34.7 L 35.5 L 34.2 L (41-53) % Orthopedic Assessment and Plan (1) Osteoarthritis of left elbow Status: Acute (2) Pain and swelling of left elbow Status: Acute Assessment and Plan: We let him eat last night as we plan to await culture finals before ruling out I &D, but at this time does not appear septic. Cultures remain negative thus far , cell counts show 3,[address] Benavides notes that the patient is not considered neutropenic so would have expected a higher cell count on aspirate if truly a septic elbow. Will to observe him on antibiotics and reconsider options. Recommend trying an NSAID if ok with medicine. Recommend Mobic 7.5 po bid. Follow cultures May use elbow as tolerated and recommend PT/OT for ROM Follow up tomorrow to reassess. Hospital Course Summary Disclaimer: The visit summary below is not to be considered part of the above Progress Note. Hospital Course: 09/25/17 Place in inpatient admission due to suspected septic left elbow. Cultures taken in the ER are pending. Will empirically place on Cefepime, monitor for changes. Recently had a dose of GCS-F 2 days ago prior to that he was neutropenic. Oncology Edy recommended admission. No source of infection at this time, repeat labs in am. 09/26/[address] Plasencia for possible septic left elbow. We may need to alter antibiotics based on findings. Check pro-calcitonin. Blood cultures were drawn on admission and are pending. Check uric acid level regarding swollen left elbow. Serial troponin and repeat EKG regarding chest pain. Telemetry. CT head regarding recent right arm weakness which has resolved. Patient has history of TIA and is on anticoagulation. Await findings from orthopedic evaluation, consider restarting Xarelto if no surgical procedures are needed and if CT of the head shows no signs of bleeding. Discussed with Dr. Snow. Okay to resume Xarelto from his standpoint with platelets of 101. Will consult Dr. Snow regarding the patient's pancreatic cancer on chemotherapy. SCDs for DVT prophylaxis. 09/27/17 Left elbow pain, swelling and erythema slowly improving. Dr. Plasencia was consulted and wants to continue to monitor. Cultures remain negative. Will continue to hold Xarelto as patient may still require surgical intervention. Continue Cefepime 1g Q12 for empiric antimicrobial coverage - Day 2. Procalcitonin 0.09 on 09/26. Patient with persistent low grade temperature of 99.0. Continue to monitor closely. Labs stable. Patient IS NOT neutropenic. Uric acid stable. Serial troponins negative. CT head revealed no acute changes.
--- NOTE | 2017-09-28 09:38 | Progress Note ---
- Date 09/28/17 Subjective: F/U: left elbow pain/swelling, r/o septic joint. Toi is seen this morning, resting in bed, watching TV. He reports that he is feeling "no different" but denies any current pain or concerns. He is afebrile and denies any recent fevers, chills, chest pain, shortness of breath, abdominal pain, nausea, vomiting or dysuria. His appetite is stable "for a mary just laying around" and his bowels are moving. Labs are stable with resolution of thrombocytopenia. WBC stable. Blood cultures and elbow culture remain negative x 2 days. Objective Vital signs: Temperature 97.7 F 09/28/17 07:25 Pulse Rate 68 09/28/17 07:25 Respiratory Rate 18 09/28/17 07:25 Blood Pressure 138/70 09/28/17 07:25 Pulse Oximetry 94 09/28/17 07:25 Rhythm: Normal Sinus Rhythm Height/Weight/BMI: Height 5 ft 10 in Weight 163 lb 5.8 oz Body Mass Index 24.7 Comments: Resting in bed, watching TV. - Constitutional Present: no acute distress, well nourished, well developed, cooperative - Routine HEENT Exam Head: Present: normocephalic, atraumatic Eye: Present: PERRL. Absent: conjunctival icterus ENT: Present: mucous membranes moist, oropharynx clear - Routine Respiratory Exam Present: CTA bilaterally. Absent: respiratory distress, wheezes - Routine Cardiovascular Exam Present: RRR, S1, S2 - Routine Abdominal Exam Present: soft, normoactive bowel sounds, non distended, non tender - Routine Extremities Exam Present: pulses intact Comments: No pedal edema. Persistent mild swelling noted to left arm as compared to right. Persistent left hand contracture. Erythema to left elbow improving. - Routine Back/Spine/Pelvis Exam Back/Spine: Present: full ROM. Absent: vertebral tenderness Comments: Chronic cervical pain with ROM; no midline tenderness. - Routine Musculoskeletal Exam Musculoskeletal: Present: no clubbing or cyanosis, contractures, joint swelling (left elbow) - Routine Skin Exam Present: intact, dry, warm Comments: Afebrile. - Routine Neurological Exam Present: alert, oriented X3, moving all extremities, hearing grossly intact, normal speech - Routine Lymphatic Exam Lymphatic: Absent: lymphedema - Routine Psychiatric Exam Present: normal affect, cooperative Results - Labs CBC & Chem 7: 09/28/17 04:21 09/28/17 04:21 Microbiology Results: Microbiology 09/26/17 16:49 Synovial Fluid, Left Elbow Gram Stain - Final 09/26/17 16:49 Synovial Fluid, Left Elbow Body Fluid Culture - Preliminary No Growth After 1 Day Assessment and Plan (1) Pain and swelling of left elbow Current visit: Yes Status: Acute (2) Pancreatic cancer metastasized to intra-abdominal lymph node Current visit: Yes Status: Acute Assessment and Plan: Impression Left elbow pain, swelling, erythema - rule out septic joint versus gout versus other Fever - possibly secondary to septic left elbow Leukocytosis (POA) - resolved Chest pain of undetermined etiology - requiring further workup Questionable left arm weakness - difficult to assess secondary to left elbow pain Recent right arm weakness which resolved - possible TIA History of TIA 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 The patient is not neutropenic Pancreatic cancer on chemotherapy Mild thrombocytopenia Anemia Chronic anticoagulation with Xarelto for paroxysmal A. fib Patient states he has been off of Xarelto for 10 days because of "low platelets" as recommended by Dr. Snow Plan Pain controlled and erythema improving. Cultures remain negative x 2 days. Continue Cefepime (day 3) for empiric antimicrobial coverage. Thrombocytopenia resolved (Plt 153). Will continue to hold Xarelto as patient may still require surgical intervention. Labs stable. Patient IS NOT neutropenic. Fever resolved. Recheck labs in AM to monitor blood counts, electrolytes and renal function. DVT Prophylaxis: SCD's Resuscitation Status: Full Code - Time spent with patient Time with patient PN: 30 minutes - Physician Narrative Physician: Byron Benavides MD Narrative: Date: 09/28/17 Time: 1556 Have independently interviewed and examined pt. Chart reviewed. Case discussed with Dr Plasencia, my PA, and patient's . Care plan developed with my supervision; agree with above. Doing okay. Worked with therapy today. Notes some decreasing pain to left elbow- able to have more range of motion. Left wrist more swollen. Reports intermittent right ear pain-no ringing in ear or dizziness. Breathing stable. Urinating well. Appetite stable. No n/v. Bowels stable. Did have temp elevation this afternoon to 100.8. Lungs: clear CV: regular AB: soft nt/nt +BS HEENT: right ear without erythema of TM or canal. EXT: decrease swelling to left elbow. Plan: Will continue with IV antibiotics. Dr Plasencia recommends Mobic to help pain/inflammation. Will start. As can restart Xarelto, will add Protonix daily for GI protection. Encourage ROM activities. Monitor lab. Hospital Course Summary Disclaimer: The visit summary below is not to be considered part of the above Progress Note. Hospital Course: 09/25/17 Place in inpatient admission due to suspected septic left elbow. Cultures taken in the ER are pending. Will empirically place on Cefepime, monitor for changes. Recently had a dose of GCS-F 2 days ago prior to that he was neutropenic. Oncology Edy recommended admission. No source of infection at this time, repeat labs in am. 09/26/[address] Plasencia for possible septic left elbow. We may need to alter antibiotics based on findings. Check pro-calcitonin. Blood cultures were drawn on admission and are pending. Check uric acid level regarding swollen left elbow. Serial troponin and repeat EKG regarding chest pain. Telemetry. CT head regarding recent right arm weakness which has resolved. Patient has history of TIA and is on anticoagulation. Await findings from orthopedic evaluation, consider restarting Xarelto if no surgical procedures are needed and if CT of the head shows no signs of bleeding. Discussed with Dr. Snow. Okay to resume Xarelto from his standpoint with platelets of 101. Will consult Dr. Snow regarding the patient's pancreatic cancer on chemotherapy. SCDs for DVT prophylaxis. 09/27/17 Left elbow pain, swelling and erythema slowly improving. Dr. Plasencia was consulted and wants to continue to monitor. Cultures remain negative. Will continue to hold Xarelto as patient may still require surgical intervention. Continue Cefepime 1g Q12 for empiric antimicrobial coverage - Day 2. Procalcitonin 0.09 on 09/26. Patient with persistent low grade temperature of 99.0. Continue to monitor closely. Labs stable. Patient IS NOT neutropenic. Uric acid stable. Serial troponins negative. CT head revealed no acute changes. 09/28/17 Pain controlled and erythema improving. Cultures remain negative x 2 days. Continue Cefepime (day 3) for empiric antimicrobial coverage. PT consulted to help with ROM. Ortho recommends Mobic 7.5mg BID to help decrease pain and inflammation. Will start. As can restart Xarelto as not ortho not feeling surgery is imminent, will add Protonix for GI protection with Mobic. Thrombocytopenia resolved (Plt 153).
[2017-09-28] MEDS: LOSARTAN 50 MG TABLET PO SCH (09:45)
[2017-09-28] MEDS: BETAXOLOL 0.5% RIGHT EYE SCH ×2 (09:45→21:05)
[2017-09-28] MEDS: CEFEPIME 1 GM in NS 100 ML IV SCH ×2 (09:45→21:05)
[2017-09-28] MEDS ORDERED: MELOXICAM 7.5 MG TABLET PO ONE (09:45)
[2017-09-28] MEDS: DORZOLAMIDE 2% EYE DROPS 10ml RIGHT EYE SCH ×2 (09:45→21:05)
[2017-09-28] MEDS: FERROUS SULFATE 324 MG TABLET PO SCH (09:45)
[2017-09-28] MEDS: FLECAINIDE 50 MG TABLET PO SCH ×2 (09:45→21:06)
[2017-09-28] MEDS: REFRESH CELLUVISC 1% Eye Drops 0.4ml LEFT EYE PRN (09:54)
--- NOTE | 2017-09-28 12:08 | Progress Note ---
Oncology Subjective Resting in bed. Complains of earache and left elbow pain. He is on pain medicine. He denies fever. CT scan of the brain showed no stroke. ROS: Gen: he denies fever. Respiratory: No shortness of breath no hemoptysis. Cardiovascular no chest pain. GI no nausea or vomiting. Musculoskeletal: left elbow pain. Exam Vital signs: Temperature 97.7 F 09/28/17 07:25 Pulse Rate 68 09/28/17 07:25 Respiratory Rate 18 09/28/17 07:25 Blood Pressure 138/70 09/28/17 07:25 Pulse Oximetry 94 09/28/17 07:25 - Constitutional no acute distress, cooperative - Routine Chest/Breast/Axilla Exam Chest wall: Absent: mass Axillae: Absent: rashes - Routine Respiratory Exam Absent: rales, rhonchi, wheezes, crackles - Routine Cardiovascular Exam Present: RRR, no murmur. Absent: JVD - Routine Abdominal Exam Present: soft, non tender - Routine Extremities Exam Comments: Swelling of the left elbow slightly tender. Oncology Results - Labs CBC & Chem 7: 09/28/17 04:21 09/28/17 04:21 Labs: Short CBC 09/28/17 Range/Units 04:21 WBC 5.8 (4.5-11.0) T/MM3 Hgb 11.6 L (13.5-17.5) GM/DL Hct 34.2 L (41-53) % Plt Count 153 (130-400) T/MM3 BMP 09/28/17 04:21 Sodium 139 Potassium 4.3 Chloride 102 Carbon Dioxide 29 BUN 18.0 D Creatinine 0.7 L Glucose 96 Calcium 8.5 Assessment and Plan Assessment and Plan: 1- metastatic pancreatic cancer with lung metastases on gemcitabine. Last dose on 09/16/17. 2- chemotherapy-induced myelosuppression, resolved. Fever: On antibiotics cefepime. 3- history of arthritis. Left elbow pain, followed by orthopedics. 4- history of A. fib was on Xeralto. 5- earache, no obvious cause. - Time Spent With Patient Total time spent is greater than 50% in coordination of care (as documented) at patient's floor/unit and/or counseling patient: less than 15 minutes
[2017-09-28] MEDS: ACETAMINOPHEN 325 MG TABLET PO PRN (16:20)
[2017-09-28] MEDS: RIVAROXABAN 20 MG TABLET PO SCH (17:42)
[2017-09-28] MEDS: MELOXICAM 7.5 MG TABLET PO SCH (21:06)
[2017-09-29] MEDS: BETAXOLOL 0.5% RIGHT EYE SCH ×2 (08:59→20:40)
[2017-09-29] MEDS: LOSARTAN 50 MG TABLET PO SCH (09:00)
[2017-09-29] MEDS: FERROUS SULFATE 324 MG TABLET PO SCH (09:00)
[2017-09-29] MEDS: MELOXICAM 7.5 MG TABLET PO SCH ×2 (09:00→20:40)
[2017-09-29] MEDS: FLECAINIDE 50 MG TABLET PO SCH ×2 (09:01→20:40)
[2017-09-29] MEDS: CEFEPIME 1 GM in NS 100 ML IV SCH ×2 (09:02→20:39)
[2017-09-29] MEDS: DORZOLAMIDE 2% EYE DROPS 10ml RIGHT EYE SCH ×2 (09:05→20:40)
--- NOTE | 2017-09-29 10:22 | Orthopedic Progress Note ---
Date: Date: 09/29/17 Time: 102 Subjective/Severity of Illness: Mr. Mejias states his elbow feels much better today. Motion is improved of both the elbow and the hand. OT worked with him yesterday and he has been doing elbow, wrist, and hand exercises in bed. Swelling is improved. We also started Mobic yesterday. Cultures remain negative thus far, cell counts show 3, 035 nucleated cells. Will to continue to observe him on antibiotics until cultures are final. Exam - Constitutional Vital Signs: Temperature 98.2 F 09/29/17 07:27 Pulse Rate 69 09/29/17 08:00 Respiratory Rate 15 09/29/17 07:27 Blood Pressure 119/66 09/29/17 07:27 Pulse Oximetry 93 09/29/17 07:27 General: cooperative, healthy appearing, no acute distress Nutritional Appearance: average body habitus Orientation: alert, oriented x3 - Psych Mood: normal Affect: normal Attitude: cooperative - RUE General: normal to inspection, no obvious deformity Skin: no rashes or lesions noted Shoulder Range of Motion: within normal limits Elbow Range of Motion: within normal limits Wrist Range of Motion: within normal limits Neurological: normal to light touch, strength 5/5 throughout - LUE General: normal to inspection, no obvious deformity Skin: no rashes or lesions noted, ecchymosis (antecubital fossa from prior phlebotomy site) Neurological: no deficits, normal to light touch, no muscle atrophy Special Tests: Tinel's Sign at Elbow: Negative Vascular: radial pulse within normal limits, capillary refill <2 seconds - RLE Postoperative Appearance: surgical incision well healed - Respiratory Respiratory Exam: non-labored - Cardiac Cardiovascular exam: pedal pulses intact - Labs Result Diagrams: 09/29/17 04:22 09/29/17 04:22 Abnormal lab results 09/29/17 09/29/17 Range/Units 04:22 04:22 RBC 3.21 L (4.50-5.90) M/MM3 Hgb 10.8 L (13.5-17.5) GM/DL Hct 32.1 L (41-53) % Immature Gran % (Auto) 2.8 H (0.0-0.5) % Neut % (Auto) 68.0 H (33-66) % Lymph % (Auto) 14.1 L (23-45) % [place] % (Auto) 13.4 H (0-9.0) % Lymph # (Auto) 0.7 L (1-4.8) T/MM3 Abs Immat Gran (auto) 0.13 H (0.00-0.03) T/MM3 BUN 21.0 H (9-20) MG/DL Creatinine 0.7 L (0.8-1.5) mg/dL BUN/Creatinine Ratio 30 H (6-26) RATIO C-Reactive Protein 72.3 H (0-9) mg/L H & H 09/26/17 09/27/17 09/28/17 Range/Units 04:54 04:33 04:21 Hgb 11.7 L 12.0 L 11.6 L (13.5-17.5) GM/DL Hct 34.7 L 35.5 L 34.2 L (41-53) % 09/29/17 Range/Units 04:22 Hgb 10.8 L (13.5-17.5) GM/DL Hct 32.1 L (41-53) % Orthopedic Assessment and Plan (1) Osteoarthritis of left elbow Status: Acute (2) Pain and swelling of left elbow Status: Acute Assessment and Plan: We let him eat last night as we plan to await culture finals before ruling out I &D, but at this time does not appear septic. Cultures remain negative thus far , cell counts show 3,[address] Benavides notes that the patient is not considered neutropenic so would have expected a higher cell count on aspirate if truly a septic elbow. Will to observe him on antibiotics and reconsider options. Recommend trying an NSAID if ok with medicine. Recommend Mobic 7.5 po bid. Follow cultures May use elbow as tolerated and recommend PT/OT for ROM Follow up tomorrow to reassess. Hospital Course Summary Disclaimer: The visit summary below is not to be considered part of the above Progress Note. Hospital Course: 09/25/17 Place in inpatient admission due to suspected septic left elbow. Cultures taken in the ER are pending. Will empirically place on Cefepime, monitor for changes. Recently had a dose of GCS-F 2 days ago prior to that he was neutropenic. Oncology Edy recommended admission. No source of infection at this time, repeat labs in am. 09/26/[address] Plasencia for possible septic left elbow. We may need to alter antibiotics based on findings. Check pro-calcitonin. Blood cultures were drawn on admission and are pending. Check uric acid level regarding swollen left elbow. Serial troponin and repeat EKG regarding chest pain. Telemetry. CT head regarding recent right arm weakness which has resolved. Patient has history of TIA and is on anticoagulation. Await findings from orthopedic evaluation, consider restarting Xarelto if no surgical procedures are needed and if CT of the head shows no signs of bleeding. Discussed with Dr. Snow. Okay to resume Xarelto from his standpoint with platelets of 101. Will consult Dr. Snow regarding the patient's pancreatic cancer on chemotherapy. SCDs for DVT prophylaxis. 09/27/17 Left elbow pain, swelling and erythema slowly improving. Dr. Plasencia was consulted and wants to continue to monitor. Cultures remain negative. Will continue to hold Xarelto as patient may still require surgical intervention. Continue Cefepime 1g Q12 for empiric antimicrobial coverage - Day 2. Procalcitonin 0.09 on 09/26. Patient with persistent low grade temperature of 99.0. Continue to monitor closely. Labs stable. Patient IS NOT neutropenic. Uric acid stable. Serial troponins negative. CT head revealed no acute changes. 09/28/17 Pain controlled and erythema improving. Cultures remain negative x 2 days. Continue Cefepime (day 3) for empiric antimicrobial coverage. PT consulted to help with ROM. Ortho recommends Mobic 7.5mg BID to help decrease pain and inflammation. Will start. As can restart Xarelto as not ortho not feeling surgery is imminent, will add Protonix for GI protection with Mobic. Thrombocytopenia resolved (Plt 153).
--- NOTE | 2017-09-29 10:47 | Orthopedic Progress Note ---
Date: Date: 09/29/17 Time: 1043 Subjective/Severity of Illness: Mr. Mejias states his left elbow, forearm, wrist, and hand feel much better today. Motion is improved of both the elbow and the hand. OT worked with him yesterday and he has been doing elbow, wrist, and hand exercises in bed. Swelling is improved. We also started Mobic yesterday. Cultures remain negative thus far, cell counts show 3,035 nucleated cells. Will to continue to observe him on antibiotics until cultures are final. Orthopedic Exam Vital signs: Vital Signs Temp Pulse Resp BP Pulse Ox 09/28/17 07:25 97.7 F 68 18 138/70 94 09/28/17 00:20 97.9 F 64 16 107/63 92 09/28/17 00:00 70 09/27/17 18:16 99.4 F 09/27/17 16:13 78 09/27/17 15:52 99.9 F 78 18 117/69 93 Intake and Output 09/27/17 09/28/17 09/28/17 22:59 06:59 14:59 Intake Total 840 / 840 300 / 300 410 / 410 Output Total 400 / 400 Balance 840 / 840 -100 / -100 410 / 410 Intake: IV 100 / 100 Cefepime 1 gm In Ns 100 ml @ 100 / 100 200 mls/hr IV Q12H [facility] Rx#: [id number] Oral 740 / 740 300 / 300 410 / 410 Output: Urine 400 / 400 Other: Urine Appearance Clear Clear Clear Urine Color Yellow Yellow Yellow Urine Odor Normal Stool Color Brown Brown Brown Stool Consistency Soft Soft Soft Formed Loose Size of Bowel Movement Small Small # Voids 1 1 1 # Bowel Movements 1 1 1 Weight 163 lb 5.8 oz Patient Weight 09/29/17 06:59 Weight 163 lb 5.8 oz - Constitutional General Appearance: Present: alert, orientated x3 (he does tell me the same stories multiple times, but does know who I am.), no acute distress - Respiratory Exam Present: non-labored - Cardiovascular Exam Present: pedal pulses intact - Abdominal Exam Absent: tenderness, distended - Extremities Exam Present: pulses intact - Detailed Upper Extremity Exam Elbow: Left erythema (NONE), Left swelling (Markedly improved), Left pain with passive ROM (NONE), Bilateral tenderness (NTTP), Bilateral decreased ROM, Bilateral pain with active ROM (NONE) Forearm: Left normal inspection, Left swelling (NONE), Left tenderness (NONE), Left wound (NONE), Left erythema (NONE) Wrist: Left normal inspection, Left deformity (NONE), Left erythema (NONE), Left swelling (NONE), Left tenderness (NONE) Hand/Fingers: Bilateral normal inspection - Integumentary Exam Present: pink, warm, dry - Lymphatic Lymphatic: Absent: lymphedema - Neurological Exam Present: intact to light touch - Psychiatric Exam Present: alert, oriented, normal affect - Labs Result Diagrams: 09/29/17 04:22 09/29/17 04:22 Abnormal lab results 09/29/17 09/29/17 Range/Units 04:22 04:22 RBC 3.21 L (4.50-5.90) M/MM3 Hgb 10.8 L (13.5-17.5) GM/DL Hct 32.1 L (41-53) % Immature Gran % (Auto) 2.8 H (0.0-0.5) % Neut % (Auto) 68.0 H (33-66) % Lymph % (Auto) 14.1 L (23-45) % [place] % (Auto) 13.4 H (0-9.0) % Lymph # (Auto) 0.7 L (1-4.8) T/MM3 Abs Immat Gran (auto) 0.13 H (0.00-0.03) T/MM3 BUN 21.0 H (9-20) MG/DL Creatinine 0.7 L (0.8-1.5) mg/dL BUN/Creatinine Ratio 30 H (6-26) RATIO C-Reactive Protein 72.3 H (0-9) mg/L H & H 09/26/17 09/27/17 09/28/17 Range/Units 04:54 04:33 04:21 Hgb 11.7 L 12.0 L 11.6 L (13.5-17.5) GM/DL Hct 34.7 L 35.5 L 34.2 L (41-53) % 09/29/17 Range/Units 04:22 Hgb 10.8 L (13.5-17.5) GM/DL Hct 32.1 L (41-53) % Orthopedic Assessment and Plan (1) Osteoarthritis of left elbow Status: Acute Assessment and Plan: Responding well to therapy and Mobic (2) Pain and swelling of left elbow Status: Acute Assessment and Plan: Doing much better after initiation of therapy and addition of Mobic. Continue stretches and exercsise. Will to observe him on antibiotics until final Cx. May use elbow as tolerated. Follow up tomorrow to reassess. Hospital Course Summary Disclaimer: The visit summary below is not to be considered part of the above Progress Note.
--- NOTE | 2017-09-29 14:19 | Progress Note ---
- Date 09/29/17 Subjective: F/U: Left elbow pain, swelling, erythema - rule out septic joint versus other Doing better today. Pain to left elbow much decreased. Able to move elbow more- note some discomfort when fully extended but pain manageable. Less left wrist swelling-improvement in ROM of wrist. Tolerating Mobic without upset stomach. Up and ambulating with nursing in halls. Breathing stable. No f/c. Eating well. Not having ab pain. Objective Vital signs: Temperature 98.2 F 09/29/17 07:27 Pulse Rate 69 09/29/17 08:00 Respiratory Rate 15 09/29/17 07:27 Blood Pressure 119/66 09/29/17 07:27 Pulse Oximetry 93 09/29/17 07:27 Rhythm: Normal Sinus Rhythm Height/Weight/BMI: Height 1.78 m Weight 76.2 kg Body Mass Index 24.7 - Constitutional Present: well nourished, well developed, average body habitus, cooperative - Routine HEENT Exam Head: Present: normocephalic, atraumatic Eye: Present: EOMI, PERRL ENT: Present: mucous membranes moist - Routine Respiratory Exam Present: CTA bilaterally. Absent: respiratory distress, wheezes, crackles - Routine Cardiovascular Exam Present: RRR, no murmur - Routine Abdominal Exam Present: soft, normoactive bowel sounds, non distended, non tender. Absent: guarding - Routine Extremities Exam Present: no edema. Absent: cyanosis, clubbing Comments: Left shoulder with decreased edema/erythema and marked improved ROM. - Routine Musculoskeletal Exam Musculoskeletal: Present: no clubbing or cyanosis - Routine Skin Exam Present: dry, warm - Routine Neurological Exam Present: alert, oriented X3, CN II-XII intact, moving all extremities, vision grossly intact, hearing grossly intact, normal speech. Absent: motor deficit, altered mental status - Routine Psychiatric Exam Present: normal affect, normal thought process, cooperative, good insight, good judgment Results - Labs CBC & Chem 7: 09/29/17 04:22 09/29/17 04:22 Microbiology Results: Microbiology 09/26/17 16:49 Synovial Fluid, Left Elbow Gram Stain - Final 09/26/17 16:49 Synovial Fluid, Left Elbow Body Fluid Culture - Preliminary No Growth After 2 Days Assessment and Plan (1) Pain and swelling of left elbow Current visit: Yes Status: Acute (2) Pancreatic cancer metastasized to intra-abdominal lymph node Current visit: Yes Status: Acute Assessment and Plan: Impression Left elbow pain, swelling, erythema - rule out septic joint versus other Fever - possibly secondary to septic left elbow Leukocytosis (POA) - resolved Chest pain of undetermined etiology Questionable left arm weakness - difficult to assess secondary to left elbow pain Recent right arm weakness which resolved - possible TIA 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 fib Patient states he has been off of Xarelto for 10 days because of "low platelets" as recommended by Dr. Snow Plan Clinically improving. Much less swelling/pain to left elbow and ROM improving. Cultures negative to date. Tolerating Mobic to help pain and inflammation. Will continue with Cefepime (Day #4). Recheck CBC in am to monitor leukocytosis (and hemoglobin with Mobic and Xarelto use). Likely home in near future if continues to do well and cultures negative. DVT Prophylaxis: Xarelto Resuscitation Status: Full Code - Time spent with patient Time with patient PN: 25 minutes - Physician Narrative Physician: Byron Benavides MD Narrative: Date: 09/29/17 Time: 1416 Hospital Course Summary Disclaimer: The visit summary below is not to be considered part of the above Progress Note. Hospital Course: 09/25/17 Place in inpatient admission due to suspected septic left elbow. Cultures taken in the ER are pending. Will empirically place on Cefepime, monitor for changes. Recently had a dose of GCS-F 2 days ago prior to that he was neutropenic. Oncology Edy recommended admission. No source of infection at this time, repeat labs in am. 09/26/[address] Plasencia for possible septic left elbow. We may need to alter antibiotics based on findings. Check pro-calcitonin. Blood cultures were drawn on admission and are pending. Check uric acid level regarding swollen left elbow. Serial troponin and repeat EKG regarding chest pain. Telemetry. CT head regarding recent right arm weakness which has resolved. Patient has history of TIA and is on anticoagulation. Await findings from orthopedic evaluation, consider restarting Xarelto if no surgical procedures are needed and if CT of the head shows no signs of bleeding. Discussed with Dr. Snow. Okay to resume Xarelto from his standpoint with platelets of 101. Will consult Dr. Snow regarding the patient's pancreatic cancer on chemotherapy. SCDs for DVT prophylaxis. 09/27/17 Left elbow pain, swelling and erythema slowly improving. Dr. Plasencia was consulted and wants to continue to monitor. Cultures remain negative. Will continue to hold Xarelto as patient may still require surgical intervention. Continue Cefepime 1g Q12 for empiric antimicrobial coverage - Day 2. Procalcitonin 0.09 on 09/26. Patient with persistent low grade temperature of 99.0. Continue to monitor closely. Labs stable. Patient IS NOT neutropenic. Uric acid stable. Serial troponins negative. CT head revealed no acute changes. 09/28/17 Pain controlled and erythema improving. Cultures remain negative x 2 days. Continue Cefepime (day 3) for empiric antimicrobial coverage. PT consulted to help with ROM. Ortho recommends Mobic 7.5mg BID to help decrease pain and inflammation. Will start. As can restart Xarelto as not ortho not feeling surgery is imminent, will add Protonix for GI protection with Mobic. Thrombocytopenia resolved (Plt 153). WBC normal at 5.8. 09/29/17 Clinically improving. Much less swelling/pain to left elbow and ROM improving. Cultures negative to date. Tolerating Mobic to help pain and inflammation. Will continue with Cefepime (Day #4). Recheck CBC in am to monitor leukocytosis (and hemoglobin with Mobic and Xarelto use). Likely home in near future if continues to do well and cultures negative.
[2017-09-29] MEDS: PANTOPRAZOLE 40 MG TABLET PO SCH (17:17)
[2017-09-29] MEDS: RIVAROXABAN 20 MG TABLET PO SCH (17:27)
[2017-09-30] MEDS: PANTOPRAZOLE 40 MG TABLET PO SCH (06:30)
[2017-09-30] MEDS: FERROUS SULFATE 324 MG TABLET PO SCH (09:01)
[2017-09-30] MEDS: LOSARTAN 50 MG TABLET PO SCH (09:02)
[2017-09-30] MEDS: DORZOLAMIDE 2% EYE DROPS 10ml RIGHT EYE SCH (09:02)
[2017-09-30] MEDS: MELOXICAM 7.5 MG TABLET PO SCH (09:02)
[2017-09-30] MEDS: BETAXOLOL 0.5% RIGHT EYE SCH (09:02)
[2017-09-30] MEDS: FLECAINIDE 50 MG TABLET PO SCH (09:02)
[2017-09-30] MEDS: CEFEPIME 1 GM in NS 100 ML IV SCH (09:06)
--- NOTE | 2017-09-30 12:46 | Progress Note ---
<Katiuska Skinner L - Last Filed: 09/30/17 16:40> Oncology Subjective Ambulating in room with standby assistance. Alert and oriented. Reports decreased swelling and decreased pain in left elbow Denies fever, chills, night sweats. He is eating and drinking normally. Normal voiding and stooling. General: No fever, no night sweats Eyes: No redness, no pain, no diplopia ENT: No mouth sores, no trouble swallowing Cardiac: No chest pain no palpitations Pulmonary: No cough, no shortness of breath, no wheezing Abdomen: No pain, no nausea vomiting, no diarrhea or constipation : No urgency, frequency, dysuria, or hematuria Musculoskeletal: less swelling/less pain left elbow Neurological: No headaches, no focal weakness Skin: No rash, no sores Psychiatric: No anxiety, no depression Exam Vital signs: Temperature 97.4 F 09/30/17 07:18 Pulse Rate 63 09/30/17 08:00 Respiratory Rate 13 09/30/17 07:18 Blood Pressure 125/67 09/30/17 07:18 Pulse Oximetry 96 09/30/17 07:18 Narrative: Acetaminophen (Tylenol) 650 mg PO Q5H PRN PRN Reason: Discomfort Last Admin: 09/28/17 16:20 Dose: 650 mg Hydrocodone Bitart/Acetaminophen ([place] 5/325) 1 tab PO Q6H PRN PRN Reason: Pain Artificial Tears (Refresh Celluvisc) 1 drop LEFT EYE 6XD PRN PRN Reason: PRN orders Last Admin: 09/28/17 09:54 Dose: 1 drop Betaxolol HCl (Betoptic) 1 drops RIGHT EYE BID [facility] Last Admin: 09/30/17 09:02 Dose: 1 drops Dorzolamide HCl (Trusopt) 1 drops RIGHT EYE BID [facility] Last Admin: 09/30/17 09:02 Dose: 1 drops Ferrous Sulfate (Feosol) 324 mg PO WB [facility] Last Admin: 09/30/17 09:01 Dose: 324 mg Flecainide Acetate (Tambocor) 50 mg PO BID [facility] Last Admin: 09/30/17 09:02 Dose: 50 mg Cefepime HCl 1 gm/ Sodium (Chloride) 100 mls @ 200 mls/hr IV Q12H [facility] Last Admin: 09/30/17 09:06 Dose: 200 mls/hr Losartan Potassium (Cozaar) 50 mg PO DAILY [facility] Last Admin: 09/30/17 09:02 Dose: 50 mg Meloxicam (Mobic) 7.5 mg PO BIDWM [facility] Ondansetron HCl (Zofran) 4 mg IVP Q6H PRN PRN Reason: Nausea &/or vomiting Pantoprazole Sodium (Protonix Tab) 40 mg PO ACB [facility] Last Admin: 09/30/17 06:30 Dose: 40 mg Rivaroxaban (Xarelto) 20 mg PO WS [facility] Last Admin: 09/29/17 17:27 Dose: 20 mg Senna/Docusate Sodium (Senna Plus Tablet) 1 tab PO BID PRN PRN Reason: Constipation Last Admin: 09/27/17 08:57 Dose: 1 tab Sodium Chloride (Iv Flush) 10 - 80 ml IVF PRN PRN PRN Reason: Flushing Last Admin: 09/27/17 22:00 Dose: 10 ml Sodium Chloride (Normal Saline) 500 ml IV PRN PRN Last Admin: 09/25/17 19:53 Dose: 500 ml - Constitutional no acute distress, well developed, cooperative - Routine HEENT Exam Head: Present: normocephalic Eye: Present: EOMI ENT: Present: mucous membranes moist - Routine Neck Exam Present: supple. Absent: lymphadenopathy - Routine Respiratory Exam Present: CTA bilaterally. Absent: wheezes - Routine Cardiovascular Exam Present: RRR, no murmur - Routine Abdominal Exam Present: soft, non distended, non tender - Routine Extremities Exam Present: edema (swelling left elbow present, but lessened) - Routine Neurological Exam Present: alert, oriented X3, moving all extremities - Routine Psychiatric Exam Present: normal affect, cooperative Oncology Results - Labs CBC & Chem 7: 09/30/17 04:12 09/30/17 04:12 Labs: Short CBC 09/30/17 Range/Units 04:12 WBC 4.3 L (4.5-11.0) T/MM3 Hgb 11.4 L (13.5-17.5) GM/DL Hct 33.6 L (41-53) % Plt Count 262 (130-400) T/MM3 [facility] 09/30/17 04:12 Sodium 140 Potassium 4.7 Chloride 104 Carbon Dioxide 26 BUN 20.0 Creatinine 0.7 L Glucose 98 Calcium 8.8 Assessment and Plan Assessment and Plan: 1- metastatic pancreatic cancer with lung metastases on gemcitabine. Last dose on 09/16/17. 2- chemotherapy-induced myelosuppression, resolved. Fever: On antibiotics cefepime. 3- history of arthritis. Left elbow pain, followed by orthopedics. 4- history of A. fib was on Xeralto. 5- earache; denies earache today. Plan Continue supportive care, PT/OT. Follow counts. - Time Spent With Patient Total time spent is greater than 50% in coordination of care (as documented) at patient's floor/unit and/or counseling patient: less than 15 minutes <Sudheer Snow - Last Filed: 09/30/17 18:05> Exam Vital signs: Temperature 96.6 F L 09/30/17 16:12 Pulse Rate 58 L 09/30/17 16:12 Respiratory Rate 16 09/30/17 16:12 Blood Pressure 135/71 09/30/17 16:12 Pulse Oximetry 94 09/30/17 16:12 Oncology Results - Labs CBC & Chem 7: 09/30/17 04:12 09/30/17 04:12 Labs: Short CBC 09/30/17 Range/Units 04:12 WBC 4.3 L (4.5-11.0) T/MM3 Hgb 11.4 L (13.5-17.5) GM/DL Hct 33.6 L (41-53) % Plt Count 262 (130-400) T/MM3 [facility] 09/30/17 04:12 Sodium 140 Potassium 4.7 Chloride 104 Carbon Dioxide 26 BUN 20.0 Creatinine 0.7 L Glucose 98 Calcium 8.8 Assessment and Plan Assessment and Plan: Patient examined Chart reviewed. Agree with documentation of Corinna Skinner. Plan of care development was participated by myself. Hand function much better. Swelling better. Will see back in one week and hold chemotherapy. Probably resume on 10/15/17. - Time Spent With Patient Total time spent is greater than 50% in coordination of care (as documented) at patient's floor/unit and/or counseling patient:
--- NOTE | 2017-09-30 13:57 | Progress Note ---
- Date 09/30/17 Subjective: F/U: Left elbow pain, swelling, erythema - rule out septic joint versus other Doing very well this afternoon. Left elbow pain and swelling resolved. Range of motion almost completely to normal (notes some discomfort with twisting motion) . Left hand working well. No f/c. Appetite stable. No ab pain. Breathing well. Ambulating well. Objective Vital signs: Temperature 97.4 F 09/30/17 07:18 Pulse Rate 63 09/30/17 08:00 Respiratory Rate 13 09/30/17 07:18 Blood Pressure 125/67 09/30/17 07:18 Pulse Oximetry 96 09/30/17 07:18 Rhythm: Normal Sinus Rhythm Height/Weight/BMI: Height 1.78 m Weight 76.8 kg Body Mass Index 24.7 - Constitutional Present: well nourished, well developed, average body habitus - Routine HEENT Exam Head: Present: normocephalic, atraumatic Eye: Present: EOMI, PERRL ENT: Present: mucous membranes moist - Routine Respiratory Exam Present: CTA bilaterally. Absent: rales, respiratory distress, rhonchi, wheezes , crackles - Routine Cardiovascular Exam Present: RRR, no murmur - Routine Abdominal Exam Present: soft, normoactive bowel sounds, non distended, non tender. Absent: guarding - Routine Extremities Exam Present: no edema, pulses intact. Absent: cyanosis, clubbing - Routine Musculoskeletal Exam Musculoskeletal: Present: no clubbing or cyanosis, other (Erythema/edema to left elbow resovled) - Routine Skin Exam Present: intact, dry, warm - Routine Neurological Exam Present: alert, oriented X3, CN II-XII intact, moving all extremities, vision grossly intact, hearing grossly intact, normal speech. Absent: motor deficit, altered mental status - Routine Psychiatric Exam Present: normal affect, normal thought process, cooperative Results - Labs CBC & Chem 7: 09/30/17 04:12 09/30/17 04:12 Microbiology Results: Microbiology 09/26/17 16:49 Synovial Fluid, Left Elbow Gram Stain - Final 09/26/17 16:49 Synovial Fluid, Left Elbow Body Fluid Culture - Final No Growth After 3 Days Assessment and Plan (1) Pain and swelling of left elbow Current visit: Yes Status: Acute (2) Pancreatic cancer metastasized to intra-abdominal lymph node Current visit: Yes Status: Acute Assessment and Plan: Impression Left elbow pain, swelling, erythema - rule out septic joint versus other Fever - possibly secondary to septic left elbow Leukocytosis (POA) - resolved Chest pain of undetermined etiology Questionable left arm weakness - difficult to assess secondary to left elbow pain Recent right arm weakness which resolved - possible TIA 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 fib Patient states he has been off of Xarelto for 10 days because of "low platelets" as recommended by Dr. Snow Plan Clinically improved. Fever and leukocytosis resolved. Left elbow pain, swelling , and erythema resolved. Cultures negative. Have ruled out septic joint. Can discharge to home for continuation of care. Will continue Mobic 7.5mg BID for 10 day. Omeprazole (or OTC Prilosec) 20mg daily while on Mobic for GI protection in light of Xarelto use. F/U with [facility] in 1 week for evaluation. Will continue chemo with Dr Snow in October. See orders for details. Case discussed with CM and Dr Snow. Time spent with patient's care and discharger greater than 30 minutes. DVT Prophylaxis: SCD's, Xarelto Resuscitation Status: Full Code - Physician Narrative Physician: Byron Benavides MD Narrative: Date: 09/30/17 Time: 1354 Hospital Course Summary Disclaimer: The visit summary below is not to be considered part of the above Progress Note. Hospital Course: 09/25/17 Place in inpatient admission due to suspected septic left elbow. Cultures taken in the ER are pending. Will empirically place on Cefepime, monitor for changes. Recently had a dose of GCS-F 2 days ago prior to that he was neutropenic. Oncology Edy recommended admission. No source of infection at this time, repeat labs in am. 09/26/[address] Plasencia for possible septic left elbow. We may need to alter antibiotics based on findings. Check pro-calcitonin. Blood cultures were drawn on admission and are pending. Check uric acid level regarding swollen left elbow. Serial troponin and repeat EKG regarding chest pain. Telemetry. CT head regarding recent right arm weakness which has resolved. Patient has history of TIA and is on anticoagulation. Await findings from orthopedic evaluation, consider restarting Xarelto if no surgical procedures are needed and if CT of the head shows no signs of bleeding. Discussed with Dr. Snow. Okay to resume Xarelto from his standpoint with platelets of 101. Will consult Dr. Snow regarding the patient's pancreatic cancer on chemotherapy. SCDs for DVT prophylaxis. 09/27/17 Left elbow pain, swelling and erythema slowly improving. Dr. Plasencia was consulted and wants to continue to monitor. Cultures remain negative. Will continue to hold Xarelto as patient may still require surgical intervention. Continue Cefepime 1g Q12 for empiric antimicrobial coverage - Day 2. Procalcitonin 0.09 on 09/26. Patient with persistent low grade temperature of 99.0. Continue to monitor closely. Labs stable. Patient IS NOT neutropenic. Uric acid stable. Serial troponins negative. CT head revealed no acute changes. 09/28/17 Pain controlled and erythema improving. Cultures remain negative x 2 days. Continue Cefepime (day 3) for empiric antimicrobial coverage. PT consulted to help with ROM. Ortho recommends Mobic 7.5mg BID to help decrease pain and inflammation. Will start. As can restart Xarelto as not ortho not feeling surgery is imminent, will add Protonix for GI protection with Mobic. Thrombocytopenia resolved (Plt 153). WBC normal at 5.8. 09/29/17 Clinically improving. Much less swelling/pain to left elbow and ROM improving. Cultures negative to date. Tolerating Mobic to help pain and inflammation. Will continue with Cefepime (Day #4). Recheck CBC in am to monitor leukocytosis (and hemoglobin with Mobic and Xarelto use). Likely home in near future if continues to do well and cultures negative. 09/30/17 Clinically improved. Fever and leukocytosis resolved. Left elbow pain, swelling , and erythema resolved. Cultures negative. Have ruled out septic joint. Can discharge to home for continuation of care. Will continue Mobic 7.5mg BID for 10 day. Omeprazole (or OTC Prilosec) 20mg daily while on Mobic for GI protection in light of Xarelto use. F/U with [facility] in 1 week for evaluation. Will continue chemo with Dr Snow in October. See orders for details.
--- NOTE | 2017-09-30 15:41 | Discharge Summary ---
Discharge Information Date of admission: 09/25/17 21:39 Anticipated date of discharge: 09/30/17 Attending Physician: Byron Benavides MD Primary care physician: Adam Vegas MD Consults: Physician Consult: Nam Plasencia Reason For Exam: left elbow pain/redness/swelling Physician Consult: Sudheer Snow Reason For Exam: pancreatic ca - Discharge Diagnosis (1) Pain and swelling of left elbow Status: Acute (2) Pancreatic cancer metastasized to intra-abdominal lymph node Status: Acute Discharge diagnosis Left elbow pain, swelling, erythema - rule out septic joint versus other Treated for septic joint - septic joint ruled out Associated conditions and complications Fever - Leukocytosis (POA) - resolved Chest pain of undetermined etiology Questionable left arm weakness - difficult to assess secondary to left elbow pain Recent right arm weakness which resolved - possible TIA 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 fib - Laboratory Labs: Admit Lab 09/25/17 19:46 WBC 15.4 H D Hgb 11.6 L Hct 34.5 L MCV 100.9 H Plt Count 102 L D Neutrophils % (Manual) 77.0 H Band Neutrophils % 13.0 H Lymphocytes % (Manual) 3.0 L Monocytes % (Manual) 6.0 Metamyelocytes % 1.0 H Admit Lab 09/25/17 19:46 Sodium 140 Potassium 4.5 Chloride 102 Carbon Dioxide 26 Anion Gap 12 BUN 18.0 Creatinine 0.7 L GFR Calculation 107 BUN/Creatinine Ratio 26 Glucose 151 H Calculated Osmolality 274 Calcium 9.2 C-Reactive Protein 58.1 H Plasma Lactate 1.4 09/30/17 04:12 09/30/17 04:12 - Microbiology Microbiology 09/26/17 16:49 Synovial Fluid, Left Elbow Gram Stain - Final 09/26/17 16:49 Synovial Fluid, Left Elbow Body Fluid Culture - Final No Growth After 3 Days - Radiology Radiology: Date of Exam: 09/25/17 Type of Exam: XR chest 2V FINDINGS: Diffuse pulmonary metastatic disease is again noted. No definite focal pneumonia. No pneumothorax or pleural effusion. Cardiac silhouette remains enlarged. Mediastinal contours and pulmonary vascularity are grossly stable. Old bilateral rib deformities. Impression: No focal pneumonia or overt congestive failure. Date of Exam: 09/26/17 Type of Exam: XR elbow LT min 3V Findings: No definite acute fracture or dislocation. There is evidence of old trauma and degenerative change with mild deformity of the radial head and ring osteophytes present. There are also osteophytes arising from the olecranon process and coronoid process of the proximal ulna. There is adjacent soft tissue swelling surrounding the elbow joint without definite elbow joint effusion. Impression: No acute fracture. Advanced degenerative changes. Date of Exam: 09/26/17 Type of Exam: CT head/brain wo con FINDINGS: The ventricles are stable. There are scattered areas of low attenuation in the white matter which most likely represent changes from chronic microvascular ischemia. The brainstem, cerebellum, and cerebral hemispheres otherwise have a normal morphology and CT attenuation. There is no evidence of midline displacement. No hemorrhage, signs of acute territorial stroke, mass effect, mass lesions, or edema is evident. The visualized portions of the skull base, midface, and calvarium demonstrate no abnormality. The paranasal sinuses are well aerated and free of significant disease. The tympanic and mastoid cavities appear normal. IMPRESSION: No acute intracranial abnormality or hemorrhage. History of Present Illness HPI: The pt is a 87 yo who is undergoing treatment for pancreatic cancer who presents to the ER c/o fevers at home which started today. 4 days ago he did have pain in his right arm, but resolved and today had pain in his left arm starting in his wrist radiating to his neck. He denies any SOB, cough, rash, N/ V/ diarrhea, STEVENS, dizziness, sore throat. For complete details of the H&P refer to that document. Objective Vital signs: Temperature 97.4 F 09/30/17 07:18 Pulse Rate 63 09/30/17 08:00 Respiratory Rate 13 09/30/17 07:18 Blood Pressure 125/67 09/30/17 07:18 Pulse Oximetry 96 09/30/17 07:18 Rhythm: Normal Sinus Rhythm Height/Weight/BMI: Height 1.78 m Weight 76.8 kg Body Mass Index 24.7 Hospital Course This is a general summary of the patient's hospital course. For more details refer to the complete medical record. Hospital course: 09/25/17 Place in inpatient admission due to suspected septic left elbow. Cultures taken in the ER are pending. Will empirically place on Cefepime, monitor for changes. Recently had a dose of GCS-F 2 days ago prior to that he was neutropenic. Oncology Edy recommended admission. No source of infection at this time, repeat labs in am. 09/26/[address] Plasencia for possible septic left elbow. We may need to alter antibiotics based on findings. Check pro-calcitonin. Blood cultures were drawn on admission and are pending. Check uric acid level regarding swollen left elbow. Serial troponin and repeat EKG regarding chest pain. Telemetry. CT head regarding recent right arm weakness which has resolved. Patient has history of TIA and is on anticoagulation. Await findings from orthopedic evaluation, consider restarting Xarelto if no surgical procedures are needed and if CT of the head shows no signs of bleeding. Discussed with Dr. Snow. Okay to resume Xarelto from his standpoint with platelets of 101. Will consult Dr. Snow regarding the patient's pancreatic cancer on chemotherapy. SCDs for DVT prophylaxis. 09/27/17 Left elbow pain, swelling and erythema slowly improving. Dr. Plasencia was consulted and wants to continue to monitor. Cultures remain negative. Will continue to hold Xarelto as patient may still require surgical intervention. Continue Cefepime 1g Q12 for empiric antimicrobial coverage - Day 2. Procalcitonin 0.09 on 09/26. Patient with persistent low grade temperature of 99.0. Continue to monitor closely. Labs stable. Patient IS NOT neutropenic. Uric acid stable. Serial troponins negative. CT head revealed no acute changes. 09/28/17 Pain controlled and erythema improving. Cultures remain negative x 2 days. Continue Cefepime (day 3) for empiric antimicrobial coverage. PT consulted to help with ROM. Ortho recommends Mobic 7.5mg BID to help decrease pain and inflammation. Will start. As can restart Xarelto as not ortho not feeling surgery is imminent, will add Protonix for GI protection with Mobic. Thrombocytopenia resolved (Plt 153). WBC normal at 5.8. 09/29/17 Clinically improving. Much less swelling/pain to left elbow and ROM improving. Cultures negative to date. Tolerating Mobic to help pain and inflammation. Will continue with Cefepime (Day #4). Recheck CBC in am to monitor leukocytosis (and hemoglobin with Mobic and Xarelto use). Likely home in near future if continues to do well and cultures negative. 09/30/17 Clinically improved. Fever and leukocytosis resolved. Left elbow pain, swelling , and erythema resolved. Cultures negative. Have ruled out septic joint. Can discharge to home for continuation of care. Will continue Mobic 7.5mg BID for 10 day. Omeprazole (or OTC Prilosec) 20mg daily while on Mobic for GI protection in light of Xarelto use. F/U with [facility] in 1 week for evaluation. Will continue chemo with Dr Snow in October. See orders for details. Time spent with patient: discharge greater than 30 minutes Resuscitation Status: Full Code Discharge Plan - Discharge Disposition Discharge Date: 09/30/17 Disposition: 01 Discharged Home, Self-Care *Condition: Stable for Transport Reason For Visit (Visit label in EMR): fever, pancreatitic cancer - Discharge Medications *Discharge Medications: New Meloxicam [Mobic] 7.5 mg PO BIDWM #20 tab Omeprazole 20 mg PO ACB #10 tab Continue Cholecalciferol (Vitamin D3) [Vitamin D3] 1,000 unit PO DAILY Arginine [l-Arginine] 500 mg PO DAILY Ubidecarenone [Co Q-10] 200 mg PO DAILY [place] 160 mg PO DAILY Multivitamin [One Daily] 1 tab PO DAILY [place]-3/Dha/Epa/Fish Oil [Fish Oil 1,360 mg Softgel] 1,360 mg PO DAILY Calcium Carb/D3/Magnesium/Zinc [Tozdlfg-Voq-Hzoa-Vit D Tablet] 1 tab PO DAILY Dorzolamide Eye Drops [Trusopt] 1 drop RIGHT EYE BID Rivaroxaban [Xarelto] 20 mg PO WS Losartan Potassium [Cozaar] 50 mg PO DAILY Flecainide [Tambocor] 50 mg PO BID Carboxymethylcellulose O/S [Refresh Celluvisc] 1 drop LEFT EYE 6XD PRN PRN Reason: Prn Orders Vit A/C/E AC/Znox/Cupric Oxide [Eye Vitamin-Minerals Tablet] 1 tab PO DAILY Betaxolol 0.5% Eye Drops [Betoptic] 1 drop RIGHT EYE BID Ferrous Sulfate [Iron] 325 mg PO DAILY - Discharge Packet/Instructions *Diet: Regular *Activity: As tolerated. Continue range of motion activities of left elbow and wrist. *Pain Management/Treatment: Mobic (meloxicam) 7.5mg twice a day with food. Tylenol (acetaminophen) okay to use. Avoid any other over the counter pain medications. *Wound Care: n/a Additional Instructions: Ompeprazole (Prilosec) can help protect your stomach from Mobic. Use 20mg once a day before breakfast. May use either prescription or over the counter, which ever is less expensive. *Expected Signs/Symptoms: Continued improvement of left shoulder pain and swelling. *Notify Physician if: Temp > 100.4. Increased pain/swelling to elbow. *During Business Hours Contact: Dr Vegas *After Business Hours Contact: [place] [facility] [place]. *Pending Lab/Results: No Pending Lab - Referrals/Follow Up *Referrals/Follow Up: Sudheer Snow MD [Physician] - (Continue to follow with Dr Snow for oncological care - anticipate next chemotherapy in October. ) Adam Vegas MD [Primary Care Provider] - 1 Week (Hopsital follow up for fever/leukocytosis - concern for septic left elbow, symptoms resovled. ) - Patient Handouts - Dismissal Complete Discharge Instructions are:: Complete Physician Narrative - Narrative Physician: Byron Benavides MD Attestation Narrative: Date: 09/30/17 Time: 1534 I have independently interviewed and examined patient prior to discharge. See my progress note for details. Medically stable for discharge to home.
[2017-09-30 16:12] VITALS: BP 135/71; PULSE 58; RESP 16; TEMP 96.6; O2SAT 94
[2017-09-30] MEDS ORDERED: MELOXICAM 7.5 MG TABLET PO SCH (17:30)
== END 2017-09-30 16:47 | disposition home or self-care (01) | DRG 556 ==
LOC: EDHOLD 19:14 → ED 19:14 → SUATTDRO 21:39 → MED 21:55
PROVIDERS: ADMIT Internal Medicine; ATTEND Hospitalist

== ENCOUNTER 2017-12-12 20:59 | Inpatient (IN) ==
[2017-12-12] MEDS ORDERED: SALINE FLUSH 10ml SYRINGE IVF PRN (21:58)
--- NOTE | 2017-12-12 22:02 | Emergency Department Report ---
Fever HPI - General Chief Complaint: Fever Stated Complaint: temp/ weak with chemo Source: patient, family Mode of arrival: wheelchair Limitations: no limitations - History of Present Illness HPI Narrative: Pt presents from home after his noted pt had fever with weakness about 1800. states pt had difficulty getting to the dinner table, taking his medications, and eating. PT states he is just a bit "lazy" and denies any physical complaint. reports once pt ate he seemed to be better but it took her about an hour to get pt to the care. Pt denies nausea, vomiting, diarrhea, cough, chest pain, or SOA. MD complaint: fever, weakness Onset (ago): hour(s) Maximum Temperature: 100.4 F - Related Data Home Medications Medication Instructions Recorded Confirmed Arginine [l-Arginine] 500 mg PO DAILY 05/13/17 11/04/17 Calcium Carb/D3/Magnesium/Zinc 1 tab PO DAILY 05/13/17 11/04/17 [Ptqfbkg-Jdq-Utyv-Vit D Tablet] Cholecalciferol (Vitamin D3) 1,000 unit PO DAILY 05/13/17 11/04/17 [Vitamin D3] Dorzolamide Eye Drops [Trusopt] 1 drop RIGHT EYE BID 05/13/17 11/04/17 Flecainide [Tambocor] 50 mg PO BID 05/13/17 11/04/17 Losartan Potassium [Cozaar] 50 mg PO DAILY 05/13/17 11/04/17 Multivitamin [One Daily] 1 tab PO DAILY 05/13/17 11/04/17 [place]-3/Dha/Epa/Fish Oil [Fish Oil 1,360 mg PO DAILY 05/13/17 11/04/17 1,360 mg Softgel] Rivaroxaban [Xarelto] 20 mg PO WS 05/13/17 11/04/17 Saw [place] 160 mg PO DAILY 05/13/17 11/04/17 Ubidecarenone [Co Q-10] 200 mg PO DAILY 05/13/17 11/04/17 Betaxolol 0.5% Eye Drops [Betoptic] 1 drop RIGHT EYE BID 07/05/17 11/04/17 Carboxymethylcellulose O/S 1 drop LEFT EYE 6XD PRN 07/05/17 11/04/17 [Refresh Celluvisc] Ferrous Sulfate [Iron] 325 mg PO DAILY 09/25/17 11/04/17 Vit A/C/E AC/Znox/Cupric Oxide 1 tab PO DAILY 09/25/17 11/04/17 [Eye Vitamin-Minerals Tablet] Previous Rx's Medication Instructions Recorded Meloxicam [Mobic] 7.5 mg PO BIDWM #20 tab 09/30/17 Omeprazole 20 mg PO ACB #10 tab 09/30/17 Allergies Allergy/AdvReac Type Severity Reaction Status Date / Time No Known Drug Allergies Allergy Unknown Verified 12/12/17 21:43 Review of Systems All systems: reviewed and negative except as stated Constitutional: Reports: as per HPI Respiratory: Reports: as per HPI Gastrointestinal: Reports: as per HPI Neurological: Reports: as per HPI [facility] Patient Stated Medical History Syncope Yes: when over worked or stressed Transient Ischemic Attacks ( Yes TIA) Cataracts Yes: Bilateral Glaucoma Yes Angina Yes Hypertension Yes Other Cardiology Yes: afib Constipation Yes Hiatal Hernia Yes Hx Incontinence Yes Hx Urinary Tract Infection Yes Other troubles urinating at times, enlarged prostate Other Hematologic Yes: Daily Xarelto Other Musculoskeletal Yes: Polio Chemotherapy Yes: skin cancer removed Other Yes: skin cancer removed Clinic Medical History (Last Reviewed 11/04/17 @ 11:54 by Shayne Muniz MD) Polio (Acute Medical) TIA (transient ischemic attack) (Acute Medical) Stroke (Acute Medical) Atrial fibrillation (Acute Medical) [facility] current use of anticoagulant (Acute Medical) Pancreatic cancer (Acute Medical) Medical History Updates: -history of TIA's. -syncopeal spells of uncertain etiology. -atrial fibrillation. -hypertension. -post polio syndrome. - osteoarthritis. -glaucoma. 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 -right ankle ORIF 2015. -colonoscopy 2012. - hernia repair. -tonsillectomy Family History: Family History (Last Reviewed 11/04/17 @ 11:54 by Shayne Muniz MD) Father Cancer of lung Mother Stroke Sister Cancer of breast Family History Updates: -father had lung cancer. -mother had vericose veins, stroke. -paternal grandfather had CAD. -siblings have vericose veins - Social History Smoking status: Never smoker Substance use type: does not use Alcohol intake: never Alcohol intake frequency: does not drink Housing: other Household members: spouse Current occupational status: retired Current residence: Apartment/Private Home Physical Exam - Limitations Limitations: no limitations - General General appearance: alert, in no apparent distress - Normal Exams: Head:: Normocephalic without trauma Eyes:: Pupils are PERRLA w/ EOMI Neck:: Full range of motion Chest/Respirations:: Clear all serna, with good airflow, and symmetry bilaterally Cardiovascular:: Regular rate and rhythm, without murmur or gallop, Pulses 2+ all extremities, capillary refill, <2 seconds all extremities Abdomen:: Bowel sounds positive, soft, non-tender, non-distended Musculoskeletal:: No tenderness, or deformity noted, good range of motion, all extremities Integumentary:: No rashes Neurological:: Patient is alert, and oriented, cranial nerves, motor/sensory/ cerebellar, exams w/o gross deficits, to observation Psychiatric:: Patient exhibits, appropriate attention, emotion and affect Course Vital Signs Temperature 101.6 F H 12/12/17 21:15 Pulse Rate 85 12/12/17 21:15 Respiratory Rate 20 12/12/17 21:15 Blood Pressure 135/67 12/12/17 21:15 Pulse Oximetry 88 L 12/12/17 21:15 Temperature 101.6 F H 12/12/17 21:15 Pulse Rate 81 12/12/17 23:51 Respiratory Rate 20 12/12/17 23:51 Blood Pressure 122/63 12/12/17 23:51 Pulse Oximetry 92 12/12/17 23:51 Fever - MDM Narrative Medical decision making narrative: Labs and Xray results reviewed, still waiting on urine results. PT provided Tylenol and IVF. Hospitalist notified of diagnostic findings. Cultures obtained and Antibiotics initiated. Hospitalist will admit Discussed DNR status with pt and . Pt wishes to be a DNR at this time - Differential Diagnosis Likely: fever of unknown origin, gastroenteritis, community acquired pneumonia, viral infection, sepsis - Lab Data Attestation: I reviewed the patient's lab results. Result diagrams: 12/12/17 22:12 12/12/17 22:12 Lab Results 12/12/17 12/12/17 12/12/17 Range/Units 22:12 22:12 23:43 WBC 30.7 H* (4.5-11.0) T/MM3 RBC 2.92 L (4.50-5.90) M/MM3 Hgb 10.1 L (13.5-17.5) GM/DL Hct 30.8 L (41-53) % MCV 105.5 H (80-100) UM3 MCH 34.6 H (26-34) UUG MCHC 32.8 (31-37) GM/DL RDW Std Deviation 59.7 H (36.9-50.2) FL Plt Count 339 (130-400) T/MM3 MPV 10.4 (9.4-12.4) UM3 Immature Gran % (Auto) Not performed Neut % (Auto) Not performed Lymph % (Auto) Not performed [place] % (Auto) Not performed Eos % (Auto) Not performed Baso % (Auto) Not performed Neut # (Auto) Not performed Lymph # (Auto) Not performed [place] # (Auto) Not performed Eos # (Auto) Not performed Baso # (Auto) Not performed Abs Immat Gran (auto) Not performed Neutrophils % (Manual) 95.0 H (33-66) % Band Neutrophils % 3.0 (0-6) % Lymphocytes % (Manual) 1.0 L (23-45) % Eosinophils % (Manual) 1.0 (0-4) % Neutrophils # (Manual) 29.2 H (1.8-7.7) T/MM3 Band Neutrophils # 0.9 T/MM3 Lymphocytes # (Manual) 0.3 L (1-4.8) T/MM3 Eosinophils # (Manual) 0.3 (0-0.5) T/MM3 RBC Morph Comment Normal Turbidity < 20 (0-20) Sodium 141 (136-146) MEQ/L Potassium 4.7 (3.6-5) MEQ/L Chloride 107 (98-107) MEQ/L Carbon Dioxide 26 (22-30) MEQ/L Anion Gap 8 (5-15) meq/L BUN 27.0 H (9-20) MG/DL Creatinine 0.9 (0.8-1.5) mg/dL Estimated Creat Clear 53 (>50) mL/min GFR Calculation 80 (>60) mL/min BUN/Creatinine Ratio 30 H (6-26) RATIO Glucose 124 H (75-110) MG/DL Calculated Osmolality 277 (261-280) MOSM/KG Calcium 9.5 (8.4-10.2) MG/DL Total Bilirubin 0.50 (0.20-1.30) MG/DL Icterus Index < 2 (0-7) AST 26 (17-59) U/L ALT 16 (1-50) U/L Alkaline Phosphatase 96 (38-126) U/L Total Protein 6.6 (6.3-8.2) g/dL Albumin 3.8 (3.5-5.0) g/dL Globulin 2.8 (2.4-3.6) G/DL Albumin/Globulin Ratio 1.4 (1.1-2.2) RATIO Specimen Hemolysis < 15 (0-25) Ur Collection Type Urine, void-cc/notcc Urine Color Yellow (YELLOW) Urine Clarity Clear Urine pH 6.0 (5.0-8.0) Ur Specific [place] 1.020 (1.015-1.025) Urine Protein Negative (NEGATIVE) Urine Glucose (UA) Negative (NEGATIVE) Urine Ketones Negative (NEGATIVE) Urine Occult Blood Negative (NEGATIVE) Urine Nitrate Negative (NEGATIVE) Urine Bilirubin Negative (NEGATIVE) Urine Urobilinogen 0.2 (NORMAL) EU/DL Ur Leukocyte Esterase Negative (NEGATIVE) Urinalysis Comment Microscopic not ind. - Radiology Data Attestation: I reviewed the patient's radiology results. (diffuse patchy infiltrates per September) Disposition Clinical Impression: HCAP (healthcare-associated pneumonia) Fever Qualifiers: Fever type: unspecified Qualified Code(s): R50.9 - Fever, unspecified Pancreatic cancer Qualifiers: Pancreatic malignancy location: unspecified Qualified Code(s): C25.9 - Malignant neoplasm of pancreas, unspecified Disposition: 02 To [facility] [place] Care Condition: Improved Prescriptions: No Action Cholecalciferol (Vitamin D3) [Vitamin D3] 1,000 unit PO DAILY Arginine [l-Arginine] 500 mg PO DAILY Ubidecarenone [Co Q-10] 200 mg PO DAILY Saw [place] 160 mg PO DAILY Multivitamin [One Daily] 1 tab PO DAILY [place]-3/Dha/Epa/Fish Oil [Fish Oil 1,360 mg Softgel] 1,360 mg PO DAILY Calcium Carb/D3/Magnesium/Zinc [Liapbfq-Ods-Vbtn-Vit D Tablet] 1 tab PO DAILY Dorzolamide Eye Drops [Trusopt] 1 drop RIGHT EYE BID Rivaroxaban [Xarelto] 20 mg PO WS Losartan Potassium [Cozaar] 50 mg PO DAILY Flecainide [Tambocor] 50 mg PO BID Carboxymethylcellulose O/S [Refresh Celluvisc] 1 drop LEFT EYE 6XD PRN PRN Reason: Prn Orders Vit A/C/E AC/Znox/Cupric Oxide [Eye Vitamin-Minerals Tablet] 1 tab PO DAILY Meloxicam [Mobic] 7.5 mg PO BIDWM #20 tab Betaxolol 0.5% Eye Drops [Betoptic] 1 drop RIGHT EYE BID Ferrous Sulfate [Iron] 325 mg PO DAILY Omeprazole 20 mg PO ACB #10 tab Referrals: Adam Vegas MD [Primary Care Provider] - Time of Disposition: 23:59 - Seen By: brittny
[2017-12-12] MEDS ORDERED: ACETAMINOPHEN 500 MG TABLET PO PRN (22:04)
[2017-12-12] MEDS ORDERED: NS 1,000 ML IV ONE (22:04)
[2017-12-12] MEDS ORDERED: LEVOFLOXACIN PB 500 MG/100 ML BAG IV SCH (23:45)
[2017-12-13] MEDS ORDERED: ONDANSETRON 4 MG/2 ML INJECTION IVP PRN (00:16)
--- NOTE | 2017-12-13 00:59 | History & Physical Report ---
History of Present Illness Date: 12/13/17 Chief complaint: weakness HPI: Patient seen via telemedicine with nursing assistance. Mr. Mejias is a pleasant 87yo man with h/o pancreatic cancer with known pulmonary mets with ongoing chemotherapy. He felt acutely weak around 1800 8/2 with T 101.6 at home. Cough mildly productive but with cancer often has cough. No nausea, vomiting, stool change. No urine change. Anorexia but able to eat. No ENT symptoms or pain. No headache. Not sob now but needed 2L NC O2 in ED for hypoxia. Blood cultures and antibiotic dosed in ED. 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 -syncopeal spells of uncertain etiology. -atrial fibrillation. -hypertension. -post polio syndrome. - osteoarthritis. -glaucoma. 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 -right ankle ORIF 2015. -colonoscopy 2012. - hernia repair. 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) Medications Home Medications Medication Instructions Recorded Confirmed Type Arginine [l-Arginine] 500 mg PO DAILY 05/13/17 11/04/17 History Calcium Carb/D3/Magnesium/Zinc 1 tab PO DAILY 05/13/17 11/04/17 History [[place]-Bup-Kgil-Vit D Tablet] Cholecalciferol (Vitamin D3) 1,000 unit PO DAILY 05/13/17 11/04/17 History [Vitamin D3] Dorzolamide Eye Drops [Trusopt] 1 drop RIGHT EYE BID 05/13/17 11/04/17 History Flecainide [Tambocor] 50 mg PO BID 05/13/17 11/04/17 History Losartan Potassium [Cozaar] 50 mg PO DAILY 05/13/17 11/04/17 History Multivitamin [One Daily] 1 tab PO DAILY 05/13/17 11/04/17 History [place]-3/Dha/Epa/Fish Oil [Fish Oil 1,360 mg PO DAILY 05/13/17 11/04/17 History 1,360 mg Softgel] Rivaroxaban [Xarelto] 20 mg PO WS 05/13/17 11/04/17 History Saw [place] 160 mg PO DAILY 05/13/17 11/04/17 History Ubidecarenone [Co Q-10] 200 mg PO DAILY 05/13/17 11/04/17 History Betaxolol 0.5% Eye Drops [Betoptic] 1 drop RIGHT EYE BID 07/05/17 11/04/17 History Carboxymethylcellulose O/S 1 drop LEFT EYE 6XD PRN 07/05/17 11/04/17 History [Refresh Celluvisc] Ferrous Sulfate [Iron] 325 mg PO DAILY 09/25/17 11/04/17 History Vit A/C/E AC/Znox/Cupric Oxide 1 tab PO DAILY 09/25/17 11/04/17 History [Eye Vitamin-Minerals Tablet] Meloxicam [Mobic] 7.5 mg PO BIDWM #20 tab 09/30/17 11/04/17 Rx Omeprazole 20 mg PO ACB #10 tab 09/30/17 11/04/17 Rx Allergies Allergy/AdvReac Type Severity Reaction Status Date / Time No Known Drug Allergies Allergy Unknown Verified 12/12/17 21:43 Exam Vital Signs: Temperature 99.2 F 12/13/17 00:33 Pulse Rate 81 12/13/17 00:33 Respiratory Rate 20 12/13/17 00:33 Blood Pressure 135/67 12/13/17 00:33 Pulse Oximetry 94 12/13/17 00:33 Telemetry Rhythm: Sinus Rhythm Height/Weight/BMI: Height 1.78 m Weight 67.1 kg - Constitutional Present: no acute distress - Routine HEENT Exam Head: Present: normocephalic, atraumatic Eye: Present: EOMI - Routine Respiratory Exam Absent: accessory muscle use Comments: diffuse rales bilaterally with no rosario wheezing currently. - Routine Cardiovascular Exam Present: RRR, S1, S2, no murmur - Routine Abdominal Exam Present: soft, normoactive bowel sounds - Routine Extremities Exam Absent: clubbing, edema - Routine Skin Exam Present: intact. Absent: cyanosis - Routine Neurological Exam Present: alert, oriented X3, CN II-XII intact. Absent: altered mental status Results - Labs CBC & Chem 7: 12/12/17 22:12 12/12/17 22:12 Assessment and Plan (1) HCAP (healthcare-associated pneumonia) Current visit: Yes Status: Acute (2) Hypoxia Current visit: Yes Status: Acute (3) Anemia Current visit: Yes Status: Acute (4) Pancreatic cancer Current visit: Yes Status: Acute Assessment and Plan: 1. Fever and weakness likely HCAP with final read of CXR pending but impressive exam with rales throughout along with hypoxia. Admit to inpatient with vanco once, and scheduled Zosyn and levaquin. Nebs, O2, monitor with supportive care. 2. Hypoxia POA--supplement to keep 90% or greater 3. Pancreatic cancer with mets to long on chemo. Oncologist not yet notified. 4. Xarelto for ?, continue and confirm with oncology and pharmacy. 5. Anemia associated with malignancy, chemo DVT prophylaxis addressed DNR DVT Prophylaxis: SCD's, Xarelto - Physician Narrative Narrative: Date: 12/13/17 Time: 55 Hospital Course Summary Disclaimer: The visit summary below is not to be considered part of the above Progress Note. Addendum entered and electronically signed by Blair Ortega MD 12/13/17 01: 04: HTN as well on losartan, continue and monitor with renal function fine. Check AM lactate also with no definite sepsis, but consider (likely on CSF injection with prior WBC 4.5 in the last week). Addendum entered and electronically signed by Lauren Naranjo MD 12/13/17 11:32: Dr. Ortega's note reviewed. Mr. Mejias interviewed and examined. CC: Fever HPI: Mr. Mejias is an 87-year-old male currently undergoing treatment for pancreatic cancer with metastatic disease to the lungs. He received last chemotherapy on Saturday of this week or 4 days ago with subsequent G-CSF 3 days. Yesterday he was advised he would not need to come in for G-CSF today because his white count had rebounded. He otherwise has felt normal until about 6 PM yesterday when his noticed he had a fever with temperature of 101.6 at home. She additionally reported that he seemed weak and had difficulty getting to the dinner table, taking medications, and eating although he was improved after eating. The patient denied cough, dyspnea, sputum production, sore throat, nausea/vomiting, diarrhea, abdominal pain, rash, joint pain or swelling, dysuria, or urinary frequency. He presented to the emergency room where initial temperature was 101.6 and oxygen saturation was 88% on room air. Chest x-ray revealed multiple pulmonary nodules and patient was admitted after blood cultures were drawn. Leukocytosis was present with WBC 30.7. PH/SH/FH: agree with that recorded above by Dr. Ortega. Dr. Edward Parham patient's primary care physician and Dr. Snow is his oncologist. Patient has a DO NOT RESUSCITATE order. ROS: 10 point review positive for minor chronic cough, poor dentition, decreasing vision; remainder as per HPI or negative EXAM: General-NAD, alert, cooperative; 98.5, 66, 18, 153/80, 92% on 1 L HEENT-PERRL, EOMI without nystagmus, conjunctiva clear, sclera anicteric, conjugate gaze, facial structures symmetric, oropharynx clear but multiple dental caries/eroded teeth present, neck supple and without adenopathy Lungs-respirations nonlabored, good airflow, crackles at the left base Cardiac-regular rhythm, S1-S2 Abd-soft, nontender, mildly distended, bowel sounds present Ext-MARZENA hose on, without edema; extensive degenerative changes in the small joints of the hands Skin-no generalized rash or areas of erythema on exposed skin surfaces arms, abdomen, back; no evidence of cellulitis distal thighs or proximal calves Neuro-cranial nerves 3 through 12 intact, motor tone/power within normal limits- generalized weakness, sensation intact 4 extremities Psych-calm, cooperative, pleasant DATA: WBC 30.7-24.9 (WBC 28.1 yesterday morning) left shift present; electrolytes unremarkable, liver enzymes normal; lactic acid 1.1. Chest x-ray reviewed by myself demonstrating multiple pulmonary nodules-no clear pulmonary infiltrate; unchanged from prior chest x-ray. A/P: Fever Leukocytosis Weakness Metastatic pancreatic cancer Anemia associated with malignancy/chemotherapy Paroxysmal atrial fibrillation Continue triple antibiotics initiated overnight. Exam is nonrevealing for source of infection other than poor dentition which may act as a source of transient bacteremia. Continue current care pending blood cultures at 48 hours; QuantiFERON to be obtained due to cavitary nature of pulmonary nodules per request of oncology. If blood cultures negative at 48 hours I believe patient can be converted to oral antibiotics. PT/OT, continue ambulation. Continue home medications for underlying chronic medical problems. Old records reviewed, discussed with Dr. Snow.
[2017-12-13] MEDS: NS 1,000 ML IV SCH ×3 (01:14→20:50)
[2017-12-13] MEDS: PIPERACILLIN/TAZOBACTAM 3.375 GM in NS 100 ML IV SCH ×4 (01:46→19:52)
[2017-12-13] MEDS ORDERED: ACETAMINOPHEN 325 MG TABLET PO PRN (06:29)
[2017-12-13 07:27] VITALS: BMI 24.3
--- NOTE | 2017-12-13 08:07 | XRay Report ---
Indication: fever, chemo PROCEDURE: XR chest 1V: Encounter: Initial Comparison: Chest CT dated December 10, 2017 Findings: Scattered bilateral nodules are again noted. The cavitary component of these lesions is not well seen radiographically. No solid lobar consolidation appreciated. No pneumothorax or effusion. Heart size and mediastinal contours are stable. Pulmonary vascularity appears normal. Impression: Diffuse bilateral pulmonary nodules, described on the recent chest CT comparison. Superimposed pneumonia is difficult to entirely exclude. .
[2017-12-13] MEDS: LOSARTAN 50 MG TABLET PO SCH (08:46)
[2017-12-13] MEDS ORDERED: RIVAROXABAN 20 MG TABLET PO SCH (17:30)
[2017-12-13] MEDS: MELOXICAM 7.5 MG TABLET PO SCH (17:59)
[2017-12-13] MEDS: RIVAROXABAN 20 MG TABLET PO SCH (17:59)
[2017-12-13] MEDS: LEVOFLOXACIN PB 750 MG/150 ML BAG IV SCH (21:05)
[2017-12-13] MEDS: DORZOLAMIDE 2% EYE DROPS 10ml RIGHT EYE SCH (21:07)
[2017-12-13] MEDS: BETAXOLOL 0.5% RIGHT EYE SCH (21:07)
[2017-12-13] MEDS: FLECAINIDE 50 MG TABLET PO SCH (21:07)
[2017-12-14] MEDS: PIPERACILLIN/TAZOBACTAM 3.375 GM in NS 100 ML IV SCH ×4 (01:09→20:15)
[2017-12-14] MEDS: OMEPRAZOLE 20 MG CAPSULE PO SCH (05:32)
[2017-12-14] MEDS: NS 1,000 ML IV SCH ×2 (05:33→16:50)
[2017-12-14] MEDS: MELOXICAM 7.5 MG TABLET PO SCH ×2 (08:51→16:49)
[2017-12-14] MEDS: FLECAINIDE 50 MG TABLET PO SCH ×2 (08:51→20:15)
[2017-12-14] MEDS: LOSARTAN 50 MG TABLET PO SCH (08:51)
[2017-12-14] MEDS: BETAXOLOL 0.5% RIGHT EYE SCH ×2 (08:51→20:13)
[2017-12-14] MEDS: DORZOLAMIDE 2% EYE DROPS 10ml RIGHT EYE SCH ×2 (08:52→20:13)
[2017-12-14] MEDS: REFRESH CELLUVISC 1% Eye Drops 0.4ml LEFT EYE PRN ×2 (08:56→20:13)
[2017-12-14] MEDS ORDERED: PNEUMOCOCCAL 13 VACCINE 0.5ml INJECTION IM ONE (12:00)
[2017-12-14] MEDS: RIVAROXABAN 20 MG TABLET PO SCH (16:50)
--- NOTE | 2017-12-14 17:00 | Progress Note ---
- Date 12/14/17 Subjective: Mr. Mejias was seen earlier this afternoon. He was resting comfortably and denied any concerns whatsoever. He denied dyspnea, lightheadedness, recurrent fevers or weakness, nausea, abdominal pain, or diarrhea. He reports that his appetite is adequate given his inability to get any exercise while he is confined to his room. He has been in isolation since tuberculosis testing was ordered yesterday due to necrotic nodule seen on chest x-ray thought to be related to his known pancreatic cancer. Objective Vital signs: Temperature 97.2 F 12/14/17 16:00 Pulse Rate 70 12/14/17 16:00 Respiratory Rate 14 12/14/17 16:00 Blood Pressure 142/77 H 12/14/17 16:00 Pulse Oximetry 97 - RA 12/14/17 16:00 I/O 3057/1050 NAD, alert, ambulating with 1 person assistance Conjunctiva clear, oropharynx clear Respirations nonlabored, good airflow, breath sounds clear Regular rhythm, S1-S2 Abdomen soft, nontender, bowel sounds present Extremities without edema Extremities without erythema or rash Height/Weight/BMI: Height 1.78 m Weight 76.7 kg Body Mass Index 24.3 Results - Labs CBC & Chem 7: 12/14/17 05:14 12/14/17 05:14 Labs: S92 B1 L7 Microbiology Results: Microbiology 12/13/17 00:04 Peripheral/Iv Start Blood Culture - Preliminary No Growth After 1 Day 12/12/17 23:59 Peripheral/Iv Start Blood Culture - Preliminary No Growth After 1 Day Quantiferon pending Assessment and Plan (1) HCAP (healthcare-associated pneumonia) Current visit: Yes Status: Acute Assessment and Plan: Impression: Fever, Leukocytosis, recent G-CSF Weakness Metastatic pancreatic cancer Anemia associated with malignancy/chemotherapy Paroxysmal atrial fibrillation Poor dentition Plan: Mr. Mejias continues to deny any symptoms to suggest source of infection. Blood cultures negative to date but will not be negative at 48 hours until midnight. I am concerned that he may have had transient bacteremia leading to presenting symptoms. He has extensive dental caries and is at risk for intermittent bacteremia. Multiple nodules on chest x-ray thought due to malignancy; cannot fully exclude superimposed infiltrate although patient does not have any symptoms or sputum production. Oxygenating well on room air. Continue current antibiotics overnight; if negative anticipate discharge on short course oral antibiotics due to poor dentition. Tuberculosis testing initiated due to necrosis described in pulmonary nodules on recent CT chest-felt to be somewhat atypical for pancreatic cancer. DVT Prophylaxis: SCD's, Xarelto - Physician Narrative Narrative: Date: 12/14/17 Time: 1657 Hospital Course Summary Disclaimer: The visit summary below is not to be considered part of the above Progress Note. Hospital Course: 12/12/17-12/13/17 Admitted evening of 12/12/17 with fever and weakness with possible pneumonia and abnormal lung exam. 2 L oxygen needed to maintain saturation on presentation. Bladder scan in the ER not suggestive of urinary retention. Continue triple antibiotics initiated overnight. Exam is nonrevealing for source of infection other than poor dentition which may act as a source of transient bacteremia. Continue current care pending blood cultures at 48 hours; QuantiFERON to be obtained due to cavitary nature of pulmonary nodules per request of oncology. If blood cultures negative at 48 hours I believe patient can be converted to oral antibiotics. PT/OT, continue ambulation. Continue home medications for underlying chronic medical problems. Old records reviewed, discussed with Dr. Snow. 12/14/17 Mr. Mejias continues to deny any symptoms to suggest source of infection. Blood cultures negative to date but will not be negative at 48 hours until midnight. I am concerned that he may have had transient bacteremia leading to presenting symptoms. He has extensive dental caries and is at risk for intermittent bacteremia. Multiple nodules on chest x-ray thought due to malignancy; cannot fully exclude superimposed infiltrate although patient does not have any symptoms or sputum production. Oxygenating well on room air today. Continue current antibiotics overnight; if negative anticipate discharge on short course oral antibiotics due to poor dentition. Tuberculosis testing initiated due to necrosis described in pulmonary nodules on recent CT chest-felt to be somewhat atypical for pancreatic cancer.
[2017-12-14] MEDS: LEVOFLOXACIN PB 750 MG/150 ML BAG IV SCH (21:30)
[2017-12-15] MEDS: PIPERACILLIN/TAZOBACTAM 3.375 GM in NS 100 ML IV SCH ×2 (01:53→08:44)
[2017-12-15] MEDS: NS 1,000 ML IV SCH ×3 (02:03→16:54)
[2017-12-15] MEDS: OMEPRAZOLE 20 MG CAPSULE PO SCH (05:34)
[2017-12-15 08:32] VITALS: O2SAT 93
[2017-12-15] MEDS: LOSARTAN 50 MG TABLET PO SCH (08:40)
[2017-12-15] MEDS: FLECAINIDE 50 MG TABLET PO SCH (08:41)
[2017-12-15] MEDS: MELOXICAM 7.5 MG TABLET PO SCH (08:41)
[2017-12-15] MEDS: BETAXOLOL 0.5% RIGHT EYE SCH (08:42)
[2017-12-15] MEDS: DORZOLAMIDE 2% EYE DROPS 10ml RIGHT EYE SCH (08:43)
[2017-12-15 16:20] VITALS: BP 144/79; PULSE 72; RESP 14; TEMP 96.6
--- NOTE | 2017-12-15 19:14 | Discharge Summary ---
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 Hemoglobin 10.1. Chemistries unremarkable. Urinalysis unremarkable. 12/14/17 05:14 12/14/17 05:14 QuantiFERON TB test pending at discharge. - Microbiology Microbiology 12/13/17 00:04 Peripheral/Iv Start Blood Culture - Preliminary No Growth After 2 Days 12/12/17 23:59 Peripheral/Iv Start Blood Culture - Preliminary No Growth After 2 Days - Radiology Radiology: Chest x-ray on 12/12/17: Scattered bilateral nodules are again noted. The cavitary component of these lesions is not well seen radiographically. No solid lobar consolidation appreciated. No pneumothorax or effusion. Heart size and mediastinal contours are stable. Pulmonary vascularity appears normal. Impression: Diffuse bilateral pulmonary nodules, described on the recent chest CT comparison. Superimposed pneumonia is difficult to entirely exclude. History of Present Illness HPI: Mr. Mejias is an 87-year-old male currently undergoing treatment for pancreatic cancer with metastatic disease to the lungs. He received last chemotherapy on Saturday of this week or 4 days ago with subsequent G-CSF 3 days. Yesterday he was advised he would not need to come in for G-CSF today because his white count had rebounded. He otherwise has felt normal until about 6 PM yesterday when his noticed he had a fever with temperature of 101.6 at home. She additionally reported that he seemed weak and had difficulty getting to the dinner table, taking medications, and eating although he was improved after eating. The patient denied cough, dyspnea, sputum production, sore throat, nausea/vomiting, diarrhea, abdominal pain, rash, joint pain or swelling, dysuria , or urinary frequency. He presented to the emergency room where initial temperature was 101.6 and oxygen saturation was 88% on room air. Chest x-ray revealed multiple pulmonary nodules and patient was admitted after blood cultures were drawn. Leukocytosis was present with WBC 30.7. Objective Vital signs: Temperature 96.6 F L 12/15/17 15:00 Pulse Rate 72 12/15/17 15:00 Respiratory Rate 14 12/15/17 15:00 Blood Pressure 144/79 H 12/15/17 15:00 Pulse Oximetry 93 12/15/17 15:00 NAD, alert, fluent speech Respirations nonlabored, good airflow, breath sounds clear although diminished at the bases Regular rhythm Abdomen soft, nontender Height/Weight/BMI: Height 1.78 m Weight 77 kg Body Mass Index 24.3 Hospital Course This is a general summary of the patient's hospital course. For more details refer to the complete medical record. Hospital course: 12/12/17-12/13/17 Admitted evening of 12/12/17 with fever and weakness with possible pneumonia and abnormal lung exam. 2 L oxygen needed to maintain saturation on presentation. Bladder scan in the ER not suggestive of urinary retention. Continue triple antibiotics initiated overnight. Exam is nonrevealing for source of infection other than poor dentition which may act as a source of transient bacteremia. Continue current care pending blood cultures at 48 hours; QuantiFERON to be obtained due to cavitary nature of pulmonary nodules per request of oncology. If blood cultures negative at 48 hours I believe patient can be converted to oral antibiotics. PT/OT, continue ambulation. Continue home medications for underlying chronic medical problems. Old records reviewed, discussed with Dr. Snow. 12/14/17 Mr. Mejias continues to deny any symptoms to suggest source of infection. Blood cultures negative to date but will not be negative at 48 hours until midnight. I am concerned that he may have had transient bacteremia leading to presenting symptoms. He has extensive dental caries and is at risk for intermittent bacteremia. Multiple nodules on chest x-ray thought due to malignancy; cannot fully exclude superimposed infiltrate although patient does not have any symptoms or sputum production. Oxygenating well on room air today. Continue current antibiotics overnight; if negative anticipate discharge on short course oral antibiotics due to poor dentition. Tuberculosis testing initiated due to necrosis described in pulmonary nodules on recent CT chest-felt to be somewhat atypical for pancreatic cancer. 12/15/17 Remains afebrile, denies cough, sputum production, dyspnea, or diarrhea. reports patient in usual state of health. Blood cultures negative after 48 hours; IV antibiotics discontinued and converted to oral Augmentin. I am concerned that the patient experienced transient bacteremia-possibly due to poor dentition. White count normalizing after recent G-CSF. QuantiFERON pending-obtain due to somewhat atypical appearance of nodules on CT chest although they are reported improved following chemotherapy. Patient advised to minimize public exposure pending final report on QuantiFERON result. Stable for discharge at this time; to follow up with Dr. Snow tomorrow and Dr. Vegas in approximately one week. Time spent with patient: discharge greater than 30 minutes Resuscitation Status: Do Not Resuscitate Discharge Plan - Discharge Disposition Discharge Date: 12/15/17 Disposition: 01 Discharged Home, Self-Care *Condition: Improved Reason For Visit (Visit label in EMR): Fever - Discharge Medications *Discharge Medications: New Amoxicillin/Potassium Clav [Augmentin 500-125 Tablet] 1 each PO BID #14 tab Continue Cholecalciferol (Vitamin D3) [Vitamin D3] 1,000 unit PO DAILY Arginine [l-Arginine] 500 mg PO DAILY Ubidecarenone [Co Q-10] 200 mg PO DAILY Saw [place] 160 mg PO DAILY Multivitamin [One Daily] 1 tab PO DAILY [place]-3/Dha/Epa/Fish Oil [Fish Oil 1,360 mg Softgel] 1,360 mg PO DAILY Calcium Carb/D3/Magnesium/Zinc [Mwdyhlp-Pme-Qpfn-Vit D Tablet] 1 tab PO DAILY Dorzolamide Eye Drops [Trusopt] 1 drop RIGHT EYE BID Rivaroxaban [Xarelto] 20 mg PO WS Losartan Potassium [Cozaar] 50 mg PO DAILY Flecainide [Tambocor] 50 mg PO BID Carboxymethylcellulose O/S [Refresh Celluvisc] 1 drop LEFT EYE 6XD PRN PRN Reason: Prn Orders Vit A/C/E AC/Znox/Cupric Oxide [Eye Vitamin-Minerals Tablet] 1 tab PO DAILY Meloxicam [Mobic] 7.5 mg PO BIDWM #20 tab Betaxolol 0.5% Eye Drops [Betoptic] 1 drop RIGHT EYE BID Ferrous Sulfate [Iron] 325 mg PO DAILY Omeprazole 20 mg PO ACB #10 tab - Discharge Packet/Instructions *Diet: Regular *Activity: As tolerates; avoid public exposure pending results of TB test *Pain Management/Treatment: Tylenol per package instructions if something needed *Wound Care: Not applicable Additional Instructions: Continue all home medications as before; add Augmentin (amoxicillin/clavulanic acid) twice daily for 1 week due to recent fever. Follow up with Dr. Snow as previously scheduled or by phone to clarify when he wishes to see you and resume therapy. Follow-up with Dr. Vegas in approximately one week for reassessment. *Expected Signs/Symptoms: No new symptoms expected although antibiotics can cause loose stools. *Notify Physician if: Recurrent fevers, dizziness, confusion, or weakness *During Business Hours Contact: Dr. Vegas or Dr. Snow *After Business Hours Contact: Call [facility] at [phone] and ask that the on-call physician be paged *Pending Lab/Results: Follow up w/Provider - Referrals/Follow Up *Referrals/Follow Up: Sudheer Snow MD [Physician] - 1 Day Adam Vegas MD [Primary Care Provider] - 1 Week - Patient Handouts - Dismissal Complete Discharge Instructions are:: Complete Physician Narrative - Narrative Attestation Narrative: Date: 12/15/17 Time: 1909
== END 2017-12-15 16:40 | disposition home or self-care (01) | DRG 872 ==
LOC: ED 20:59 → EDHOLD 12-13 00:05 → SUATTDRO 12-13 00:05 → MED 12-13 00:07
PROVIDERS: ADMIT Hospitalist; ATTEND Internal Medicine